=== PATIENT | male | born 1955 | race Caucasian/White ===

== ENCOUNTER 2017-07-19 11:46 | Inpatient (IN) | payer MEDICAID, OTHER ==
--- NOTE | 2017-07-19 12:41 | C.PDOC ---
History Of Present Illness 62 year old male presents to the ED for evaluation of cough and hemoptysis which began 2 days ago. Patient notes he had multiple episodes, with last episode occurring prior to arrival. Patient notes bright red blood with clots. He reports shortness of breath. Patient denies history of asthma or smoking. Patient has been compliant with his blood pressure medication. Patient denies unintentional weight loss, TB exposure, or recent foreign travel. COUGH, HEMOPTYSIS X 2 DAYS. 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 +BRB W CLOTS. +SOB. DENIES HO ASTHMA, SMOKING. COMPLIANT W BP MEDS. DENIES UNINT WT LOSS, TB EXPOSURE, FOREIGN TRAVEL. EXAM MOD DIST NONTOXIC HEENT NEG LUNGS +ACTIVE WET COUGH, PIPE CHANGER. +DIFFUSE RHONCHI R SIDE W TACHYPNEA RETRACTION CV RRR SINUS TACH REMAINDER NEG Time Seen by Provider: 07/19/17 12:24 Chief Complaint (Nursing): Cough, Cold, Congestion History Per: Patient History/Exam Limitations: no limitations Onset/Duration Of Symptoms: Days (2) Current Symptoms Are (Timing): Still Present Sick Contacts (Context): None Associated Symptoms: Cough Ear Symptoms: Bilateral: None Additional History Per: Patient Past Medical History Reviewed: Historical Data, Nursing Documentation, Vital Signs Vital Signs: Last Vital Signs Temp 99.8 F H 07/19/17 17:26 Pulse 95 H 07/19/17 17:26 Resp 20 07/19/17 17:26 BP 146/81 07/19/17 17:26 Pulse Ox 99 07/19/17 17:26 - Medical History PMH: No Chronic Diseases Surgical History: No Surg Hx Family History: States: Unknown Family Hx - Social History Hx Tobacco Use: No Review Of Systems Constitutional: Negative for: Weight loss Respiratory: Positive for: Cough, Hemoptysis Physical Exam - Physical Exam Appears: Non-toxic, Other (in moderate distress ) Skin: Normal Color, Warm, Dry Head: Atraumatic, Normacephalic Eye(s): bilateral: Normal Inspection Ear(s): Bilateral: Normal Nose: Normal, No Discharge Oral Mucosa: Moist Throat: Normal, No Erythema, No Exudate Neck: Supple Chest: Symmetrical, No Deformity, No Tenderness, Other (sinus tachycardia ) Cardiovascular: Rhythm Regular, No Murmur Respiratory: No Rales, Rhonchi (diffuse, right side ), No Wheezing, Other ( active wet cough, nonproductive, tachypnea, retraction ) Extremity: Normal ROM, Capillary Refill (less than 2 seconds ) Neurological/Psych: Oriented x3, Normal Speech, Normal Cognition Gait: Steady ED Course And Treatment - Laboratory Results Result Diagrams: 07/19/17 12:59 07/19/17 12:59 ECG: Interpreted By Me ECG Rhythm: Sinus Rhythm Rate From EC O2 Sat by Pulse Oximetry: 94 Pulse Ox Interpretation: Normal - Radiology CXR: Interpreted by Me, Viewed By Me, Read By Radiologist CXR Interpretation: Yes: Other (patchy infiltrates bilaterally ) Progress Note: Labs, CT Angio Chest, CXR, EKG ordered and reviewed. Albuterol INH, Maxipime IVP, Tylenol PO and IV fluids administered. Progress - Re-Evaluation Re-evaluation Note: 07/19/17 17:49 NARD. 98% ON RA. APPEARS COMFORTABLE. D/W DR Slick PALOMARES WILL ADMIT. PENDING CTA REPORT - Data Reviewed Data Reviewed: Lab, Diagnostic imaging, EKG, Old records - Critical Care Citical Care: Excluding Proc Time Critical Care Time: 90 minutes Disposition Counseled Patient/Family Regarding: Studies Performed, Diagnosis - Disposition Disposition: HOSPITALIZED Disposition Time: 17:52 Condition: STABLE Forms: [employer] (Polish) - Clinical Impression Clinical Impression: Pneumonia, Hemoptysis - Scribe Statement The provider has reviewed the documentation as recorded by the Scribe (Lisa Saleh) Provider Attestation: All medical record entries made by the Scribe were at my direction and personally dictated by me. I have reviewed the chart and agree that the record accurately reflects my personal performance of the history, physical exam, medical decision making, and the department course for this patient. I have also personally directed, reviewed, and agree with the discharge instructions and disposition. Decision To Admit - Pt Status Changed To: Hospital Disposition Of: Inpatient - Admit Certification Admit to Inpatient:: After my assessment, the patient will require hospitalization for at least two midnights. This is because of the severity of symptoms shown, intensity of services needed, and/or the medical risk in this patient being treated as an outpatient. - InPatient: Physician Admission Certification: I certify that this patient requires 2 or more midnights of care for the following reason:: SEE NOTE - . Bed Request Type: Regular Admitting Physician: Mal Palomares Patient Diagnosis: Pneumonia, Hemoptysis
[2017-07-19] MEDS ORDERED: Albuterol 0.083% Inhal Sol (2.5 mg/3 mL) UD INH STA (12:48)
[2017-07-19] MEDS ORDERED: Cefepime IV 2 gm in Dextrose 2 GM/100 ML BAG IVPB STA (12:50)
[2017-07-19 12:56] LABS: VENOUS BLOOD GAS BASE EXCESS 2.4 mmol/L (0.0-2.0); VENOUS BLOOD GAS PCO2 32 mmHg (40-60)
[2017-07-19] MEDS ORDERED: Albuterol 0.083% Inhal Sol (2.5 mg/3 mL) UD ONE (12:58)
[2017-07-19] MEDS ORDERED: Sodium Chloride 0.9% 2,000 ML ONE (12:58)
[2017-07-19 13:06] LABS: BASO # 0.1 K/uL (0.0-0.2); BASO % 0.7 % (0.0-2.0); HEMATOCRIT 37.7 % (35.0-51.0); LYMPH # 1.4 K/uL (1.0-4.3); LYMPH % 11.3 % (20.0-40.0); MEAN CELL VOLUME 85.6 fL (80.0-94.0); MEAN CORPUSCULAR HEMOGLOBIN 29.5 pg (27.0-31.0); MEAN CORPUSCULAR HGB CONC 34.4 g/dL (33.0-37.0); MEAN PLATELET VOLUME 7.6 fL (7.2-11.7); MONO # 1.2 K/uL (0.0-0.8); RED CELL DISTRIBUTION WIDTH 13.1 % (11.5-14.5); WHITE BLOOD COUNT 12.3 K/uL (4.8-10.8)
[2017-07-19 13:17] LABS: INR 1.2
[2017-07-19 13:30] LABS: CHLORIDE 96 mmol/L (98-107); SODIUM 131 mmol/L (132-148)
[2017-07-19 13:31] LABS: POTASSIUM 3.4 mmol/L (3.6-5.2)
[2017-07-19 13:32] LABS: GFR AFRICAN-AMERICAN > 60
[2017-07-19 13:33] LABS: ALB/GLOB RATIO 1.1 (1.0-2.1); ALKALINE PHOSPHATASE 82 U/L (38-126); ALT/SGPT 34 U/L (21-72); AST/SGOT 33 U/L (17-59); BILIRUBIN,TOTAL 0.8 mg/dL (0.2-1.3); BLOOD UREA NITROGEN 17 mg/dL (9-20); CARBON DIOXIDE 23 mmol/L (22-30); GLUCOSE,RANDOM 111 mg/dL (75-110); PHOSPHOROUS 1.4 mg/dL (2.5-4.5); TOTAL PROTEIN 8.2 g/dL (6.3-8.3)
[2017-07-19 13:34] LABS: CALCIUM 9.2 mg/dl (8.6-10.4); MAGNESIUM 1.8 mg/dL (1.6-2.3)
[2017-07-19 15:29] LABS: RBC URINE 1 /hpf (0-3); URINE BILIRUBIN NEGATIVE (NEGATIVE); URINE BLOOD 1+ (NEGATIVE); URINE CALCIUM OXALATE CRYSTALS OCC /hpf (<OCC); URINE COLOR Straw (YELLOW); URINE GLUCOSE (UA) NORMAL (Normal); URINE HYALINE CAST 0-2 /lpf (0-2); URINE KETONE NEGATIVE (NEGATIVE); URINE LEUKOCYTE ESTERASE NEG Leu/uL (Negative); URINE PROTEIN NEGATIVE (NEGATIVE); URINE UROBILINOGEN NORMAL mg/dL (0.2-1.0)
--- NOTE | 2017-07-19 16:07 | RAD ---
HISTORY: Sepsis Patient COMPARISON: No prior. FINDINGS: LUNGS: Limited patchy density is difficult to exclude from bony overlap at the left apex. Clinically correlate further. Follow-up PA and lateral radiographs is recommended possible it otherwise CT may be helpful. PLEURA: No significant pleural effusion identified, no pneumothorax apparent. CARDIOVASCULAR: Normal. OSSEOUS STRUCTURES: Old healed right 8th rib fracture seen posteriorly. VISUALIZED UPPER ABDOMEN: Normal. OTHER FINDINGS: None. IMPRESSION: Rostral patchy infiltrate left apex versus bony overlap or even bony abnormality at the left for 2nd and 3rd ribs. Consider follow-up two-view chest radiography or CT. No potential acute right pulmonary findings.
[2017-07-19] MEDS ORDERED: Iohexol 350mg/ml 100 ML ONE (16:54)
[2017-07-19 17:36] LABS: VENOUS BLOOD GAS BASE EXCESS -1.3 mmol/L (0.0-2.0); VENOUS BLOOD GAS PCO2 43 mmHg (40-60); VENOUS BLOOD PH 7.36 (7.32-7.43)
[2017-07-19] MEDS ORDERED: Tuberculin 5 Units/0.1 ml Inj ID STA (18:16)
--- NOTE | 2017-07-19 18:25 | CT ---
PROCEDURE: CT Chest with contrast (Pulmonary Angiogram) HISTORY: HEMOPTYSIS r/o PE COMPARISON: None available. TECHNIQUE: Axial computed tomography images were obtained of the chest in the pulmonary arterial phase of enhancement. Coronal and sagittal reformatted images were created and reviewed. Intravenous contrast dose: Visipaque 320 100 mL. Mean Hounsfield unit values in the main pulmonary artery: 245.83 Radiation dose: Total exam DLP = 363.92 mGy-cm. This CT exam was performed using one or more of the following dose reduction techniques: Automated exposure control, adjustment of the mA and/or kV according to patient size, and/or use of iterative reconstruction technique. FINDINGS: PULMONARY ARTERIES: Unremarkable. No pulmonary embolism. AORTA: No acute findings. No thoracic aortic aneurysm. LUNGS: Large, dominant thick-walled cavitary mass apex of the right lung with an air-fluid level. The major component measures 3.4 x 4.2 cm in their satellite lesions contiguous with this. Additional benign cavitary masses identified in the left upper lobe, superior segment of the left lower lobe, and in the posterior segment of the right upper lobe. The patient is neither cachectic hand is not known to be immunosuppressive medication, nor immunocompromised. Although tumor, septic emboli are less likely considerations in all likelihood this is inflammatory/infectious perhaps granulomatous disease. Reactivation tuberculosis can assume this appearance as CT and variants of sarcoid. PLEURAL SPACES: Unremarkable. No effusion or pneuomothorax. HEART: Unremarkable. No cardiomegaly. No significant pericardial effusion. LYMPH NODES: No lymphadenopathy. BONES, CHEST WALL: Unremarkable. No fracture or destructive lesion OTHER FINDINGS: Cholelithiasis without CT evidence of acute cholecystitis. IMPRESSION: Primarily upper lobe masses and infiltrates including a dominant cavitary mass in the right upper lobe. Strong consideration to granulomatous disease/ reactivation tuberculosis. Less likely considerations have been provided above. Cholelithiasis without CT evidence of acute cholecystitis. Communication of results: I discussed findings with the attending physician in the emergency department at the time of this interpretation.
[2017-07-19] MEDS ORDERED: Potassium Chloride 20 mEq ER Tab PO STA (18:59)
[2017-07-19] MEDS ORDERED: Piperacillin/Tazobact 3.375 GM in Sodium Chloride 100 ML IVPB SCH (20:30)
[2017-07-19] MEDS ORDERED: Albuterol-Ipratrop 3 mg / 0.5 (3 ml) UD ONE (21:35)
[2017-07-19] MEDS ORDERED: Piperacillin/Tazobact 3.375 gm 100 ML IVPB ONE (21:35)
[2017-07-19] MEDS: Albuterol 0.083% Inhal Sol (2.5 mg/3 mL) UD INH PRN (21:45)
[2017-07-19] MEDS: Piperacill/Tazo 3.375gm in Dex 3.375 GM/50 ML BAG IVPB SCH (21:48)
[2017-07-20] MEDS: Piperacill/Tazo 3.375gm in Dex 3.375 GM/50 ML BAG IVPB SCH ×3 (05:28→21:16)
[2017-07-20] MEDS: Albuterol 0.083% Inhal Sol (2.5 mg/3 mL) UD INH PRN ×2 (07:49→13:24)
--- NOTE | 2017-07-20 09:21 | CP.PCM.HP ---
History of Present Illness - History of Present Illness History of Present Illness: CC: Coughing blood 62 y/o males with HTN. Patoient seen for HTN and develop cough. Pt did not do OP- CXR c/o did not believe he has something wrong. Pt has constant cough w/ bloody mucus x 2 days. He went to ER and admitted Present on Admission - Present on Admission Any Indicators Present on Admission: Yes History of DVT/PE: No History of Uncontrolled Diabetes: No Urinary Catheter: No Decubitus Ulcer Present: No Review of Systems - Review of Systems Systems not reviewed;Unavailable: Acuity of Condition - Constitutional Constitutional: absent: Anorexia, Excessive Sweating, Headache, Night Sweats, Sleep Apnea, Weight Loss, Weakness - EENT Eyes: absent: Diplopia, Loss of Peripheral Vision, Pain, Spots in Vision, Loss of Vision Ears: absent: Decreased Hearing, Disequilibrium, Dizziness Nose/Mouth/Throat: absent: Nasal Congestion, Nasal Trauma, Bleeding Gums, Dysphagia, Halitosis - Cardiovascular Cardiovascular: absent: Chest Pain, Diaphoresis, Dyspnea, Dyspnea on Exertion, Edema, Leg Edema, Orthopnea - Respiratory Respiratory: Hemoptysis, Wheezing, Chest Congestion, Excessive Mucous Production. absent: Dyspnea on Exertion, Snoring, Pain with Coughing - Gastrointestinal Gastrointestinal: absent: Abdominal Pain, Dyspepsia, Dysphagia, Heartburn, Nausea - Genitourinary Genitourinary: absent: Difficulty Urinating, Nocturia, Urinary Hesitance, Urinary Urgency - Musculoskeletal Musculoskeletal: absent: Abnormal Gait, Back Pain, Loss of Height, Myalgias, Neck Pain - Integumentary Integumentary: absent: Alopecia, Hirsutism, Pruritus, Rash - Neurological Neurological: absent: Abnormal Gait, Abnormal Movements, Behavioral Changes, Burning Sensations, Confusion, Focal Weakness Past Patient History - Past Social History Smoking Status: Former Smoker - CARDIAC Hx Cardiac Disorders: Yes Hx Hypertension: Yes - PULMONARY Hx Respiratory Disorders: Yes Hx Asthma: Yes - MUSCULOSKELETAL/RHEUMATOLOGICAL Hx Falls: No - PSYCHIATRIC Hx Substance Use: No - SURGICAL HISTORY Hx Surgeries: No Meds Allergies/Adverse Reactions: Allergies Allergy/AdvReac Type Severity Reaction Status Date / Time No Known Allergies Allergy Verified 07/19/17 12:03 Physical Exam - Constitutional Appears: No Acute Distress - Eye Exam Eye Exam: Normal appearance - ENT Exam ENT Exam: Mucous Membranes Moist - Neck Exam Neck exam: Positive for: Full Rom. Negative for: Lymphadenopathy, Thyromegaly - Respiratory Exam Respiratory Exam: Chest Wall Tenderness. absent: Rhonchi, Wheezes - Cardiovascular Exam Cardiovascular Exam: REGULAR RHYTHM, +S1, +S2. absent: Gallop, JVD, Systolic Murmur - GI/Abdominal Exam GI & Abdominal Exam: Soft. absent: Guarding, Tenderness - Extremities Exam Extremities exam: Positive for: full ROM, normal capillary refill. Negative for : calf tenderness, joint swelling, pedal edema, pedal pulses present Results - Vital Signs Recent Vital Signs: Last Vital Signs Temp 99.3 F 07/20/17 00:33 Pulse 86 07/20/17 08:06 Resp 20 07/20/17 00:33 BP 121/71 07/20/17 00:33 Pulse Ox 95 07/20/17 00:33 - Labs Result Diagrams: 07/19/17 12:59 07/19/17 12:59 Labs: Laboratory Results - last 24 hr 07/19/17 07/19/17 07/19/17 12:46 12:53 12:59 WBC 12.3 H RBC 4.40 Hgb 13.0 Hct 37.7 MCV 85.6 MCH 29.5 MCHC 34.4 RDW 13.1 Plt Count 323 MPV 7.6 Neut % (Auto) 78.0 H Lymph % (Auto) 11.3 L [place] % (Auto) 10.0 Eos % (Auto) 0.0 Baso % (Auto) 0.7 Neut # 9.6 H Lymph # 1.4 [place] # 1.2 H Eos # 0.0 Baso # 0.1 PT INR APTT pO2 57 H VBG pH 7.50 H VBG pCO2 32 L VBG HCO3 26.6 VBG Total CO2 26.0 VBG O2 Sat (Calc) 94.3 H VBG Base Excess 2.4 H VBG Potassium 3.4 L Sodium 133.0 Chloride 103.0 Glucose 124 H Lactate 0.9 Potassium Carbon Dioxide Anion Gap BUN Creatinine Est GFR ( Amer) Est GFR (Non-Af Amer) Random Glucose Calcium Phosphorus Magnesium Total Bilirubin AST ALT Alkaline Phosphatase Troponin I NT-Pro-B Natriuret Pep Total Protein Albumin Globulin Albumin/Globulin Ratio Venous Blood Potassium 3.4 L Urine Color Urine Clarity Urine pH Ur Specific [place] Urine Protein Urine Glucose (UA) Urine Ketones Urine Blood Urine Nitrate Urine Bilirubin Urine Urobilinogen Ur Leukocyte Esterase Urine RBC (Auto) Calcium Oxalate Crystal Hyaline Casts Influenza Typ A,B (EIA) Negative for flu a/b 07/19/17 07/19/17 07/19/17 12:59 12:59 14:42 WBC RBC Hgb Hct MCV MCH MCHC RDW Plt Count MPV Neut % (Auto) Lymph % (Auto) [place] % (Auto) Eos % (Auto) Baso % (Auto) Neut # Lymph # [place] # Eos # Baso # PT 13.8 H INR 1.2 APTT 38 H pO2 VBG pH VBG pCO2 VBG HCO3 VBG Total CO2 VBG O2 Sat (Calc) VBG Base Excess VBG Potassium Sodium 131 L Chloride 96 L Glucose Lactate Potassium 3.4 L Carbon Dioxide 23 Anion Gap 16 BUN 17 Creatinine 1.1 Est GFR ( Amer) > 60 Est GFR (Non-Af Amer) > 60 Random Glucose 111 H Calcium 9.2 Phosphorus 1.4 L Magnesium 1.8 Total Bilirubin 0.8 AST 33 ALT 34 Alkaline Phosphatase 82 Troponin I < 0.0120 NT-Pro-B Natriuret Pep 249 Total Protein 8.2 Albumin 4.3 Globulin 3.8 Albumin/Globulin Ratio 1.1 Venous Blood Potassium Urine Color Straw Urine Clarity Clear Urine pH 5.0 Ur Specific [place] 1.005 Urine Protein Negative Urine Glucose (UA) Normal Urine Ketones Negative Urine Blood 1+ H Urine Nitrate Negative Urine Bilirubin Negative Urine Urobilinogen Normal Ur Leukocyte Esterase Neg Urine RBC (Auto) 1 Calcium Oxalate Crystal Occ H Hyaline Casts 0-2 Influenza Typ A,B (EIA) 07/19/17 17:20 WBC RBC Hgb Hct MCV MCH MCHC RDW Plt Count MPV Neut % (Auto) Lymph % (Auto) [place] % (Auto) Eos % (Auto) Baso % (Auto) Neut # Lymph # [place] # Eos # Baso # PT INR APTT pO2 31 VBG pH 7.36 VBG pCO2 43 VBG HCO3 22.8 VBG Total CO2 25.6 VBG O2 Sat (Calc) 67.3 H VBG Base Excess -1.3 L VBG Potassium 3.3 L Sodium 138.0 Chloride 106.0 Glucose 112 H Lactate 1.5 Potassium Carbon Dioxide Anion Gap BUN Creatinine Est GFR ( Amer) Est GFR (Non-Af Amer) Random Glucose Calcium Phosphorus Magnesium Total Bilirubin AST ALT Alkaline Phosphatase Troponin I NT-Pro-B Natriuret Pep Total Protein Albumin Globulin Albumin/Globulin Ratio Venous Blood Potassium 3.3 L Urine Color Urine Clarity Urine pH Ur Specific [place] Urine Protein Urine Glucose (UA) Urine Ketones Urine Blood Urine Nitrate Urine Bilirubin Urine Urobilinogen Ur Leukocyte Esterase Urine RBC (Auto) Calcium Oxalate Crystal Hyaline Casts Influenza Typ A,B (EIA) - EKG Data EKG Interpreted by: Myself EKG shows normal: Sinus rhythm Rate: Tachycardia (Complete RBBB) Assessment & Plan - Assessment and Plan (Free Text) Assessment: Pulm cavitary lesion/ Hemoptysis - like PTB r/o cancer HTN Cont Zozyn/ albuterol Pulmonary consult For AFB x 3 & on Isolation
--- NOTE | 2017-07-20 09:24 | CP.PCM.CON ---
<Paris Mendoza - Last Filed: 07/20/17 14:37> History of Present Illness - History of Present Illness History of Present Illness: Pulmonology Consult Note for Dr. Rebolledo's Service Reason for consult: Abnormal CXR, hemoptysis HPI: 62M with PMHx of HTN presented to the ED for hemoptysis, fever, chills that started 07/18/17. He reports having a productive cough x 2 weeks but denied any fever, chills. Denied any recent travel or sick contacts. Patient admitted to fever, chills, fatigue, headache, wheezing, shortness of breath, 5lb weight loss over the past month - unintentional. He has never had TB, pneumonia in the past, follows closely with PMD. Denied chest pain, abdominal pain, n/v/d/c, or urinary symptoms. PMHx: HTN PSHx: Denied Meds: Denied All: NKDA SHx: Denied tobacco, ETOH, and illicit drug use FHx: Unremarkable Past Patient History - Past Social History Smoking Status: Never Smoked - CARDIAC Hx Cardiac Disorders: Yes Hx Hypertension: Yes - PULMONARY Hx Respiratory Disorders: Yes Hx Asthma: Yes - MUSCULOSKELETAL/RHEUMATOLOGICAL Hx Falls: No - PSYCHIATRIC Hx Substance Use: No - SURGICAL HISTORY Hx Surgeries: No Meds Allergies/Adverse Reactions: Allergies Allergy/AdvReac Type Severity Reaction Status Date / Time No Known Allergies Allergy Verified 07/19/17 12:03 - Medications Medications: Current Medications Acetaminophen (Tylenol 325mg Tab) 975 mg PO ONCE PRN PRN Reason: Fever >100.4 F Last Admin: 07/19/17 19:34 Dose: 975 mg Acetaminophen (Tylenol 325mg Tab) 650 mg PO Q4 LEIGHA Last Admin: 07/20/17 09:07 Dose: 650 mg Albuterol Sulfate (Albuterol 0.083% Inhal Kirstie (2.5 Mg/3 Ml) Ud) 2.5 mg INH RQ6 PRN PRN Reason: Shortness of Breath Last Admin: 07/20/17 07:49 Dose: 2.5 mg Piperacillin Sod/Tazobactam Sod (Zosyn 3.375 Gm Iv Premix) 3.375 gm in 50 mls @ 100 mls/hr IVPB Q8H LEIGHA Last Admin: 07/20/17 05:28 Dose: 100 mls/hr Losartan Potassium (Cozaar) 50 mg PO DAILY LEIGHA Last Admin: 07/20/17 09:07 Dose: 50 mg Physical Exam - Constitutional Appears: No Acute Distress - Head Exam Head Exam: NORMAL INSPECTION, NORMOCEPHALIC - Eye Exam Eye Exam: EOMI, Normal appearance, PERRL Pupil Exam: NORMAL ACCOMODATION - ENT Exam ENT Exam: Mucous Membranes Dry - Neck Exam Neck exam: Positive for: Normal Inspection. Negative for: Lymphadenopathy, Thyromegaly - Respiratory Exam Respiratory Exam: Prolonged Expiratory Phase, Wheezes - Cardiovascular Exam Cardiovascular Exam: Tachycardia - GI/Abdominal Exam GI & Abdominal Exam: Normal Bowel Sounds, Soft. absent: Distended, Tenderness - Extremities Exam Extremities exam: Positive for: normal inspection, pedal pulses present. Negative for: pedal edema, tenderness - Back Exam Back exam: NORMAL INSPECTION - Neurological Exam Neurological exam: Alert, CN II-XII Intact, Oriented x3 - Psychiatric Exam Psychiatric exam: Normal Affect, Normal Mood - Skin Skin Exam: Dry, Intact, Normal Color, Warm Results - Vital Signs Recent Vital Signs: Last Vital Signs Temp 99.3 F 07/20/17 00:33 Pulse 86 07/20/17 08:06 Resp 20 07/20/17 00:33 BP 121/71 07/20/17 00:33 Pulse Ox 95 07/20/17 00:33 - Labs Result Diagrams: 07/19/17 12:59 07/19/17 12:59 Labs: Laboratory Results - last 24 hr 07/19/17 07/19/17 07/19/17 12:46 12:53 12:59 WBC 12.3 H RBC 4.40 Hgb 13.0 Hct 37.7 MCV 85.6 MCH 29.5 MCHC 34.4 RDW 13.1 Plt Count 323 MPV 7.6 Neut % (Auto) 78.0 H Lymph % (Auto) 11.3 L [place] % (Auto) 10.0 Eos % (Auto) 0.0 Baso % (Auto) 0.7 Neut # 9.6 H Lymph # 1.4 [place] # 1.2 H Eos # 0.0 Baso # 0.1 PT INR APTT pO2 57 H VBG pH 7.50 H VBG pCO2 32 L VBG HCO3 26.6 VBG Total CO2 26.0 VBG O2 Sat (Calc) 94.3 H VBG Base Excess 2.4 H VBG Potassium 3.4 L Sodium 133.0 Chloride 103.0 Glucose 124 H Lactate 0.9 Potassium Carbon Dioxide Anion Gap BUN Creatinine Est GFR ( Amer) Est GFR (Non-Af Amer) Random Glucose Calcium Phosphorus Magnesium Total Bilirubin AST ALT Alkaline Phosphatase Troponin I NT-Pro-B Natriuret Pep Total Protein Albumin Globulin Albumin/Globulin Ratio Venous Blood Potassium 3.4 L Urine Color Urine Clarity Urine pH Ur Specific [place] Urine Protein Urine Glucose (UA) Urine Ketones Urine Blood Urine Nitrate Urine Bilirubin Urine Urobilinogen Ur Leukocyte Esterase Urine RBC (Auto) Calcium Oxalate Crystal Hyaline Casts Influenza Typ A,B (EIA) Negative for flu a/b 07/19/17 07/19/17 07/19/17 12:59 12:59 14:42 WBC RBC Hgb Hct MCV MCH MCHC RDW Plt Count MPV Neut % (Auto) Lymph % (Auto) [place] % (Auto) Eos % (Auto) Baso % (Auto) Neut # Lymph # [place] # Eos # Baso # PT 13.8 H INR 1.2 APTT 38 H pO2 VBG pH VBG pCO2 VBG HCO3 VBG Total CO2 VBG O2 Sat (Calc) VBG Base Excess VBG Potassium Sodium 131 L Chloride 96 L Glucose Lactate Potassium 3.4 L Carbon Dioxide 23 Anion Gap 16 BUN 17 Creatinine 1.1 Est GFR ( Amer) > 60 Est GFR (Non-Af Amer) > 60 Random Glucose 111 H Calcium 9.2 Phosphorus 1.4 L Magnesium 1.8 Total Bilirubin 0.8 AST 33 ALT 34 Alkaline Phosphatase 82 Troponin I < 0.0120 NT-Pro-B Natriuret Pep 249 Total Protein 8.2 Albumin 4.3 Globulin 3.8 Albumin/Globulin Ratio 1.1 Venous Blood Potassium Urine Color Straw Urine Clarity Clear Urine pH 5.0 Ur Specific [place] 1.005 Urine Protein Negative Urine Glucose (UA) Normal Urine Ketones Negative Urine Blood 1+ H Urine Nitrate Negative Urine Bilirubin Negative Urine Urobilinogen Normal Ur Leukocyte Esterase Neg Urine RBC (Auto) 1 Calcium Oxalate Crystal Occ H Hyaline Casts 0-2 Influenza Typ A,B (EIA) 07/19/17 17:20 WBC RBC Hgb Hct MCV MCH MCHC RDW Plt Count MPV Neut % (Auto) Lymph % (Auto) [place] % (Auto) Eos % (Auto) Baso % (Auto) Neut # Lymph # [place] # Eos # Baso # PT INR APTT pO2 31 VBG pH 7.36 VBG pCO2 43 VBG HCO3 22.8 VBG Total CO2 25.6 VBG O2 Sat (Calc) 67.3 H VBG Base Excess -1.3 L VBG Potassium 3.3 L Sodium 138.0 Chloride 106.0 Glucose 112 H Lactate 1.5 Potassium Carbon Dioxide Anion Gap BUN Creatinine Est GFR ( Amer) Est GFR (Non-Af Amer) Random Glucose Calcium Phosphorus Magnesium Total Bilirubin AST ALT Alkaline Phosphatase Troponin I NT-Pro-B Natriuret Pep Total Protein Albumin Globulin Albumin/Globulin Ratio Venous Blood Potassium 3.3 L Urine Color Urine Clarity Urine pH Ur Specific [place] Urine Protein Urine Glucose (UA) Urine Ketones Urine Blood Urine Nitrate Urine Bilirubin Urine Urobilinogen Ur Leukocyte Esterase Urine RBC (Auto) Calcium Oxalate Crystal Hyaline Casts Influenza Typ A,B (EIA) Assessment & Plan - Assessment and Plan (Free Text) Plan: Suspected Tuberculosis Continue current management - will continue to monitor Imaging: CXR 07/19: Rostral patchy infiltrate left apex versus bony overlap or even bony abnormality at the left for 2nd and 3rd ribs. Consider follow-up two-view chest radiography or CT. No potential acute right pulmonary findings. CT Chest 07/19: Primarily upper lobe masses and infiltrates including a dominant cavitary mass in the right upper lobe. Strong consideration to granulomatous disease/ reactivation tuberculosis. Less likely considerations have been provided above.Cholelithiasis without CT evidence of acute cholecystitis. Medications: Zosyn by primary started 07/20 Isoniazid, Rifampin, Pyridoxine, Pyrazinamide - started 07/20 by primary and ID - Dr. Ruff Results: Leukocytosis, with left shift HIV NEGATIVE F/U quantiferon, rapid flu, Mycoplasma Igm, strep pneumo, legionella, procalcitonin, HIV, AFBs Hx HTN DW Reji Garcia DO, PGY-1 <Devyn Rebolledo - Last Filed: 07/20/17 18:41> Meds - Medications Medications: Current Medications Acetaminophen (Tylenol 325mg Tab) 975 mg PO ONCE PRN PRN Reason: Fever >100.4 F Last Admin: 07/19/17 19:34 Dose: 975 mg Acetaminophen (Tylenol 325mg Tab) 650 mg PO Q4 PRN PRN Reason: Pain, Mild (1-3) Albuterol Sulfate (Albuterol 0.083% Inhal Kirstie (2.5 Mg/3 Ml) Ud) 2.5 mg INH RQ6 PRN PRN Reason: Shortness of Breath Last Admin: 07/20/17 13:24 Dose: 2.5 mg Ethambutol HCl (Myambutol) 800 mg PO DAILY [facility] Last Admin: 07/20/17 10:59 Dose: 800 mg Piperacillin Sod/Tazobactam Sod (Zosyn 3.375 Gm Iv Premix) 3.375 gm in 50 mls @ 100 mls/hr IVPB Q8H [facility] Last Admin: 07/20/17 12:48 Dose: 100 mls/hr Isoniazid (Niazid) 300 mg PO DAILY [facility] Last Admin: 07/20/17 10:59 Dose: 300 mg Losartan Potassium (Cozaar) 50 mg PO DAILY [facility] Last Admin: 07/20/17 09:07 Dose: 50 mg Pyrazinamide (Pyrazinamide) 1,000 mg PO DAILY [facility] Pyridoxine HCl (Vitamin B6 50 Mg Tab) 50 mg PO DAILY [facility] Last Admin: 07/20/17 10:59 Dose: 50 mg Rifampin (Rifampin Cap) 600 mg PO DAILY [facility] Results - Vital Signs Recent Vital Signs: Last Vital Signs Temp 99.3 F 07/20/17 00:33 Pulse 86 07/20/17 08:06 Resp 20 07/20/17 00:33 BP 121/71 07/20/17 00:33 Pulse Ox 95 07/20/17 00:33 - Labs Result Diagrams: 07/19/17 12:59 07/19/17 12:59 Labs: Laboratory Results - last 24 hr 07/20/17 07/20/17 11:46 11:49 HIV 1&2 Antibody Screen Negative Ur L.pneumophila Ag Negative Attending/Attestation - Attestation I have personally seen and examined this patient.: Yes I have fully participated in the care of the patient.: Yes I have reviewed all pertinent clinical information: Yes
[2017-07-20] MEDS ORDERED: Potassium Chloride 20 mEq ER Tab PO ONE (10:00)
[2017-07-20] MEDS ORDERED: Enoxaparin 40 mg Syringe SC SCH (10:00)
--- NOTE | 2017-07-20 10:40 | CP.PCM.CON ---
History of Present Illness - History of Present Illness History of Present Illness: admitted for hemoptysis r/o TB vs malignancy Review of Systems - Review of Systems All systems: reviewed and no additional remarkable complaints except - Constitutional Constitutional: As Per HPI - EENT Eyes: absent: As Per HPI, Blind Spots, Blurred Vision, Change in Vision, Decreased Night Vision, Diplopia, Discharge, Dry Eye, Exophthalmos, Floaters, Irritation, Itchy Eyes, Loss of Peripheral Vision, Pain, Photophobia, Requires Corrective Lenses, Sees Flashes, Spots in Vision, Tunnel Vision, Other Visual Disturbances, Loss of Vision, Other Ears: absent: As Per HPI, Decreased Hearing, Ear Discharge, Ear Pain, Tinnitus, Abnormal Hearing, Disequilibrium, Dizziness, Other Nose/Mouth/Throat: absent: As Per HPI, Epistaxis, Nasal Congestion, Nasal Discharge, Nasal Obstruction, Nasal Trauma, Nose Pain, Post Nasal Drip, Sinus Pain, Sinus Pressure, Bleeding Gums, Change in Voice, Dental Pain, Dry Mouth, Dysphagia, Halitosis, Hoarsness, Lip Swelling, Mouth Lesions, Mouth Pain, Odynophagia, Sore Throat, Throat Swelling, Tongue Swelling, Facial Pain, Neck Pain, Neck Mass, Other - Cardiovascular Cardiovascular: absent: As Per HPI, Acrocyanosis, Chest Pain, Chest Pain at Rest , Chest Pain with Activity, Claudication, Diaphoresis, Dyspnea, Dyspnea on Exertion, Edema, Irregular Heart Rhythm, Pain Radiating to Arm/Neck/Jaw, Leg Edema, Leg Ulcers, Lightheadedness, Orthopnea, Palpitations, Paroxysmal Nocturnal Dyspnea, Pedal Edema, Radiating Pain, Rapid Heart Rate, Slow Heart Rate, Syncope, Other - Respiratory Respiratory: As Per HPI, Hemoptysis - Gastrointestinal Gastrointestinal: absent: As Per HPI, Abdominal Pain, Belching, Bloating, Change in Bowel Habits, Change in Stool Character, Coffee Ground Emesis, Constipation, Cramping, Diarrhea, Dyspepsia, Dysphagia, Early Satiety, Excessive Flatus, Fecal Incontinence, Heartburn, Hematemesis, Hematochezia, Loose Stools, Melena, Nausea, Odynophagia, Temesmus, Vomiting, Other - Genitourinary Genitourinary: absent: As Per HPI, Change in Urinary Stream, Difficulty Urinating, Dysuria, Flank Pain, Hematuria, Pyuria, Nocturia, Urinary Incontinence, Urinary Frequency, Urinary Hesitance, Urinary Urgency, Voiding Freq/Small Amts, Freq UTI, Hx Renal/Bladder Calculi, Hx /Renal Surgery, Bladder Distension, Other - Musculoskeletal Musculoskeletal: absent: As Per HPI, Abnormal Gait, Arthralgias, Atrophy, Back Pain, Deformity, Joint Swelling, Limited Range of Motion, Loss of Height, Muscle Cramps, Muscle Weakness, Myalgias, Neck Pain, Numbness, Radiating Pain into Limb, Stiffness, Tingling, Other Past Patient History - Past Social History Smoking Status: Never Smoked - CARDIAC Hx Cardiac Disorders: Yes Hx Hypertension: Yes - PULMONARY Hx Respiratory Disorders: Yes Hx Asthma: Yes - MUSCULOSKELETAL/RHEUMATOLOGICAL Hx Falls: No - PSYCHIATRIC Hx Substance Use: No - SURGICAL HISTORY Hx Surgeries: No Meds Allergies/Adverse Reactions: Allergies Allergy/AdvReac Type Severity Reaction Status Date / Time No Known Allergies Allergy Verified 07/19/17 12:03 - Medications Medications: Current Medications Acetaminophen (Tylenol 325mg Tab) 975 mg PO ONCE PRN PRN Reason: Fever >100.4 F Last Admin: 07/19/17 19:34 Dose: 975 mg Acetaminophen (Tylenol 325mg Tab) 650 mg PO Q4 [facility] Last Admin: 07/20/17 09:07 Dose: 650 mg Albuterol Sulfate (Albuterol 0.083% Inhal Kirstie (2.5 Mg/3 Ml) Ud) 2.5 mg INH RQ6 PRN PRN Reason: Shortness of Breath Last Admin: 07/20/17 07:49 Dose: 2.5 mg Piperacillin Sod/Tazobactam Sod (Zosyn 3.375 Gm Iv Premix) 3.375 gm in 50 mls @ 100 mls/hr IVPB Q8H [facility] Last Admin: 07/20/17 05:28 Dose: 100 mls/hr Isoniazid (Niazid) 300 mg PO DAILY [facility] Losartan Potassium (Cozaar) 50 mg PO DAILY [facility] Last Admin: 07/20/17 09:07 Dose: 50 mg Pyridoxine HCl (Vitamin B6 50 Mg Tab) 50 mg PO DAILY [facility] Rifampin (Rifampin) 450 mg PO DAILY [facility] Physical Exam - Constitutional Appears: Non-toxic, Chronically Ill - Head Exam Head Exam: NORMOCEPHALIC - Eye Exam Eye Exam: PERRL - ENT Exam ENT Exam: Mucous Membranes Dry - Neck Exam Neck exam: Negative for: Lymphadenopathy - Respiratory Exam Respiratory Exam: Decreased Breath Sounds - Cardiovascular Exam Cardiovascular Exam: REGULAR RHYTHM - GI/Abdominal Exam GI & Abdominal Exam: Diminished Bowel Sounds, Soft - Rectal Exam Rectal Exam: Deferred - Exam Exam: NORMAL INSPECTION - Extremities Exam Extremities exam: Negative for: pedal edema - Back Exam Back exam: absent: CVA tenderness (L), CVA tenderness (R) - Neurological Exam Neurological exam: Alert, CN II-XII Intact, Oriented x3, Reflexes Normal - Psychiatric Exam Psychiatric exam: Normal Mood Results - Vital Signs Recent Vital Signs: Last Vital Signs Temp 99.3 F 07/20/17 00:33 Pulse 86 07/20/17 08:06 Resp 20 07/20/17 00:33 BP 121/71 07/20/17 00:33 Pulse Ox 95 07/20/17 00:33 - Labs Result Diagrams: 07/21/17 08:35 07/21/17 07:13 Labs: Laboratory Results - last 24 hr 07/19/17 07/19/17 07/19/17 12:46 12:53 12:59 WBC 12.3 H RBC 4.40 Hgb 13.0 Hct 37.7 MCV 85.6 MCH 29.5 MCHC 34.4 RDW 13.1 Plt Count 323 MPV 7.6 Neut % (Auto) 78.0 H Lymph % (Auto) 11.3 L Frio % (Auto) 10.0 Eos % (Auto) 0.0 Baso % (Auto) 0.7 Neut # 9.6 H Lymph # 1.4 Frio # 1.2 H Eos # 0.0 Baso # 0.1 PT INR APTT pO2 57 H VBG pH 7.50 H VBG pCO2 32 L VBG HCO3 26.6 VBG Total CO2 26.0 VBG O2 Sat (Calc) 94.3 H VBG Base Excess 2.4 H VBG Potassium 3.4 L Sodium 133.0 Chloride 103.0 Glucose 124 H Lactate 0.9 Potassium Carbon Dioxide Anion Gap BUN Creatinine Est GFR ( Amer) Est GFR (Non-Af Amer) Random Glucose Calcium Phosphorus Magnesium Total Bilirubin AST ALT Alkaline Phosphatase Troponin I NT-Pro-B Natriuret Pep Total Protein Albumin Globulin Albumin/Globulin Ratio Venous Blood Potassium 3.4 L Urine Color Urine Clarity Urine pH Ur Specific Pearcy Urine Protein Urine Glucose (UA) Urine Ketones Urine Blood Urine Nitrate Urine Bilirubin Urine Urobilinogen Ur Leukocyte Esterase Urine RBC (Auto) Calcium Oxalate Crystal Hyaline Casts Influenza Typ A,B (EIA) Negative for flu a/b 07/19/17 07/19/17 07/19/17 12:59 12:59 14:42 WBC RBC Hgb Hct MCV MCH MCHC RDW Plt Count MPV Neut % (Auto) Lymph % (Auto) Frio % (Auto) Eos % (Auto) Baso % (Auto) Neut # Lymph # Frio # Eos # Baso # PT 13.8 H INR 1.2 APTT 38 H pO2 VBG pH VBG pCO2 VBG HCO3 VBG Total CO2 VBG O2 Sat (Calc) VBG Base Excess VBG Potassium Sodium 131 L Chloride 96 L Glucose Lactate Potassium 3.4 L Carbon Dioxide 23 Anion Gap 16 BUN 17 Creatinine 1.1 Est GFR ( Amer) > 60 Est GFR (Non-Af Amer) > 60 Random Glucose 111 H Calcium 9.2 Phosphorus 1.4 L Magnesium 1.8 Total Bilirubin 0.8 AST 33 ALT 34 Alkaline Phosphatase 82 Troponin I < 0.0120 NT-Pro-B Natriuret Pep 249 Total Protein 8.2 Albumin 4.3 Globulin 3.8 Albumin/Globulin Ratio 1.1 Venous Blood Potassium Urine Color Straw Urine Clarity Clear Urine pH 5.0 Ur Specific Pearcy 1.005 Urine Protein Negative Urine Glucose (UA) Normal Urine Ketones Negative Urine Blood 1+ H Urine Nitrate Negative Urine Bilirubin Negative Urine Urobilinogen Normal Ur Leukocyte Esterase Neg Urine RBC (Auto) 1 Calcium Oxalate Crystal Occ H Hyaline Casts 0-2 Influenza Typ A,B (EIA) 07/19/17 17:20 WBC RBC Hgb Hct MCV MCH MCHC RDW Plt Count MPV Neut % (Auto) Lymph % (Auto) Frio % (Auto) Eos % (Auto) Baso % (Auto) Neut # Lymph # Frio # Eos # Baso # PT INR APTT pO2 31 VBG pH 7.36 VBG pCO2 43 VBG HCO3 22.8 VBG Total CO2 25.6 VBG O2 Sat (Calc) 67.3 H VBG Base Excess -1.3 L VBG Potassium 3.3 L Sodium 138.0 Chloride 106.0 Glucose 112 H Lactate 1.5 Potassium Carbon Dioxide Anion Gap BUN Creatinine Est GFR ( Amer) Est GFR (Non-Af Amer) Random Glucose Calcium Phosphorus Magnesium Total Bilirubin AST ALT Alkaline Phosphatase Troponin I NT-Pro-B Natriuret Pep Total Protein Albumin Globulin Albumin/Globulin Ratio Venous Blood Potassium 3.3 L Urine Color Urine Clarity Urine pH Ur Specific Pearcy Urine Protein Urine Glucose (UA) Urine Ketones Urine Blood Urine Nitrate Urine Bilirubin Urine Urobilinogen Ur Leukocyte Esterase Urine RBC (Auto) Calcium Oxalate Crystal Hyaline Casts Influenza Typ A,B (EIA) Assessment & Plan (1) Hemoptysis Status: Acute (2) Pneumonia Status: Acute - Assessment and Plan (Free Text) Assessment: r/o TB consult Dr Rebolledo
[2017-07-20 14:32] LABS: LEGIONELLA AG URINE NEGATIVE (NEGATIVE)
[2017-07-20 18:50] LABS: PROCALCITONIN SERUM 0.56 NG/ML (0.19-0.49)
[2017-07-21] MEDS: Piperacill/Tazo 3.375gm in Dex 3.375 GM/50 ML BAG IVPB SCH ×3 (05:18→20:23)
[2017-07-21 07:40] LABS: CHLORIDE 100 mmol/L (98-107); SODIUM 133 mmol/L (132-148)
[2017-07-21 07:42] LABS: AST/SGOT 50 U/L (17-59); BILIRUBIN,TOTAL 1.1 mg/dL (0.2-1.3); GFR AFRICAN-AMERICAN > 60
[2017-07-21 07:43] LABS: ALB/GLOB RATIO 1.1 (1.0-2.1); ALKALINE PHOSPHATASE 83 U/L (38-126); ALT/SGPT 57 U/L (21-72); BLOOD UREA NITROGEN 15 mg/dL (9-20); CALCIUM 8.2 mg/dl (8.6-10.4); CARBON DIOXIDE 22 mmol/L (22-30); GLUCOSE,RANDOM 144 mg/dL (75-110); TOTAL PROTEIN 6.9 g/dL (6.3-8.3)
[2017-07-21] MEDS: Albuterol 0.083% Inhal Sol (2.5 mg/3 mL) UD INH PRN (07:50)
[2017-07-21 08:40] LABS: BASO # 0.1 K/uL (0.0-0.2); BASO % 0.5 % (0.0-2.0); LYMPH # 0.8 K/uL (1.0-4.3); LYMPH % 6.3 % (20.0-40.0); MEAN CORPUSCULAR HEMOGLOBIN 28.7 pg (27.0-31.0); MEAN PLATELET VOLUME 7.9 fL (7.2-11.7); MONO % 8.6 % (0.0-10.0); PLATELET COUNT 235 K/uL (130-400); WHITE BLOOD COUNT 12.1 K/uL (4.8-10.8)
--- NOTE | 2017-07-21 08:53 | CP.PCM.PN ---
Subjective - Date & Time of Evaluation Date of Evaluation: 07/21/17 Time of Evaluation: 08:37 - Subjective Subjective: Pt no complain; cough feels much loser and less bloody. (+) is whitish, bld tinge only. Appetite is fair, nauseous at times. No CP, no SOB, (+) fever inc to 103 but no chills. no diarrhea, no vomiting Objective - Vital Signs/Intake and Output Vital Signs (last 24 hours): Temp Pulse Resp BP Pulse Ox 103 F H 91 H 20 101/68 97 07/21/17 08:19 07/20/17 23:30 07/20/17 23:30 07/20/17 23:30 07/20/17 23:30 Intake and Output: 07/21/17 07/21/17 06:59 18:59 Intake Total 360 Output Total 400 Balance -40 - Medications Medications: Current Medications Acetaminophen (Tylenol 325mg Tab) 650 mg PO Q4 PRN PRN Reason: Pain, Mild (1-3) Albuterol Sulfate (Albuterol 0.083% Inhal Kirstie (2.5 Mg/3 Ml) Ud) 2.5 mg INH RQ6 PRN PRN Reason: Shortness of Breath Last Admin: 07/21/17 07:50 Dose: 2.5 mg Ethambutol HCl (Myambutol) 800 mg PO DAILY [facility] Last Admin: 07/20/17 10:59 Dose: 800 mg Piperacillin Sod/Tazobactam Sod (Zosyn 3.375 Gm Iv Premix) 3.375 gm in 50 mls @ 100 mls/hr IVPB Q8H [facility] Last Admin: 07/21/17 05:18 Dose: 100 mls/hr Isoniazid (Niazid) 300 mg PO DAILY [facility] Last Admin: 07/20/17 10:59 Dose: 300 mg Losartan Potassium (Cozaar) 50 mg PO DAILY [facility] Last Admin: 07/20/17 09:07 Dose: 50 mg Pyrazinamide (Pyrazinamide) 1,000 mg PO DAILY [facility] Pyridoxine HCl (Vitamin B6 50 Mg Tab) 50 mg PO DAILY [facility] Last Admin: 07/20/17 10:59 Dose: 50 mg Rifampin (Rifampin Cap) 600 mg PO DAILY [facility] - Labs Labs: 07/21/17 08:35 07/21/17 07:13 PT 13.8 SECONDS (9.7-12.2) H 07/19/17 12:59 INR 1.2 07/19/17 12:59 APTT 38 SECONDS (21-34) H 07/19/17 12:59 - Constitutional Appears: No Acute Distress - Eye Exam Eye Exam: Normal appearance - ENT Exam ENT Exam: Mucous Membranes Moist - Neck Exam Neck Exam: Full ROM - Respiratory Exam Respiratory Exam: Decreased Breath Sounds, Rhonchi, Wheezes. absent: Rales - Cardiovascular Exam Cardiovascular Exam: REGULAR RHYTHM, +S1, +S2. absent: Gallop, JVD, Murmur - GI/Abdominal Exam GI & Abdominal Exam: Soft. absent: Tenderness, Rebound - Extremities Exam Extremities Exam: Normal Capillary Refill. absent: Calf Tenderness, Joint Swelling, Pedal Edema - Skin Skin Exam: Normal Color, Warm. absent: Pallor, Rash, Urticaria Assessment and Plan - Assessment and Plan (Free Text) Assessment: Fever/ abn CXR HTN Discuss to inc calorie intake Cont meds
[2017-07-21 10:14] LABS: BASOPHIL 1 % (0-2); NEUTROPHIL 88 % (50-75); TOTAL CELLS COUNTED 100
[2017-07-21] MEDS ORDERED: Promethazine 12.5 mg/10 ml Syrup PO PRN (10:27)
--- NOTE | 2017-07-21 10:28 | CP.PCM.PN ---
<RejiParis - Last Filed: 07/21/17 13:00> Subjective - Date & Time of Evaluation Date of Evaluation: 07/21/17 Time of Evaluation: 09:00 - Subjective Subjective: Pulmonology Note for Dr. Rebolledo's Service Patient seen and examined at bedside this morning. Febrile last night, tmax 103.1, admitted to productive cough with blood tinged sputum. Denied chills, headache, chest pain, SOB, cough abdominal pain, n/v/d/c, or urinary symptoms. Objective - Vital Signs/Intake and Output Vital Signs (last 24 hours): Temp Pulse Resp BP Pulse Ox 103 F H 86 20 123/71 97 07/21/17 08:19 07/21/17 08:00 07/21/17 08:00 07/21/17 08:00 07/21/17 08:00 Intake and Output: 07/21/17 07/21/17 06:59 18:59 Intake Total 360 Output Total 400 Balance -40 - Medications Medications: Current Medications Acetaminophen (Tylenol 325mg Tab) 650 mg PO Q4 PRN PRN Reason: Pain, Mild (1-3) Albuterol Sulfate (Albuterol 0.083% Inhal Kirstie (2.5 Mg/3 Ml) Ud) 2.5 mg INH RQ6 PRN PRN Reason: Shortness of Breath Last Admin: 07/21/17 07:50 Dose: 2.5 mg Ethambutol HCl (Myambutol) 800 mg PO DAILY [facility] Last Admin: 07/21/17 09:58 Dose: 800 mg Piperacillin Sod/Tazobactam Sod (Zosyn 3.375 Gm Iv Premix) 3.375 gm in 50 mls @ 100 mls/hr IVPB Q8H [facility] Last Admin: 07/21/17 05:18 Dose: 100 mls/hr Isoniazid (Niazid) 300 mg PO DAILY [facility] Last Admin: 07/21/17 09:58 Dose: 300 mg Losartan Potassium (Cozaar) 50 mg PO DAILY [facility] Last Admin: 07/21/17 09:58 Dose: 50 mg Pyrazinamide (Pyrazinamide) 1,000 mg PO DAILY [facility] Last Admin: 07/21/17 09:58 Dose: 1,000 mg Pyridoxine HCl (Vitamin B6 50 Mg Tab) 50 mg PO DAILY [facility] Last Admin: 07/21/17 09:58 Dose: 50 mg Rifampin (Rifampin Cap) 600 mg PO DAILY [facility] Last Admin: 07/21/17 10:16 Dose: 600 mg - Labs Labs: 07/21/17 08:35 07/21/17 07:13 PT 13.8 SECONDS (9.7-12.2) H 07/19/17 12:59 INR 1.2 07/19/17 12:59 APTT 38 SECONDS (21-34) H 07/19/17 12:59 - Additional Findings Additional findings: - Head Exam Head Exam: NORMAL INSPECTION, NORMOCEPHALIC - Eye Exam Eye Exam: EOMI, Normal appearance, PERRL Pupil Exam: NORMAL ACCOMODATION - ENT Exam ENT Exam: Mucous Membranes Dry - Neck Exam Neck exam: Positive for: Normal Inspection. Negative for: Lymphadenopathy, Thyromegaly - Respiratory Exam Respiratory Exam: Prolonged Expiratory Phase, Wheezes - Cardiovascular Exam Cardiovascular Exam: Tachycardia - GI/Abdominal Exam GI & Abdominal Exam: Normal Bowel Sounds, Soft. absent: Distended, Tenderness - Extremities Exam Extremities exam: Positive for: normal inspection, pedal pulses present. Negative for: pedal edema, tenderness - Back Exam Back exam: NORMAL INSPECTION - Neurological Exam Neurological exam: Alert, CN II-XII Intact, Oriented x3 - Psychiatric Exam Psychiatric exam: Normal Affect, Normal Mood - Skin Skin Exam: Dry, Intact, Normal Color, Warm Assessment and Plan - Assessment and Plan (Free Text) Plan: Suspected Tuberculosis Continue current management - will continue to monitor Imaging: CXR 07/19: Rostral patchy infiltrate left apex versus bony overlap or even bony abnormality at the left for 2nd and 3rd ribs. Consider follow-up two-view chest radiography or CT. No potential acute right pulmonary findings. CT Chest 07/19: Primarily upper lobe masses and infiltrates including a dominant cavitary mass in the right upper lobe. Strong consideration to granulomatous disease/ reactivation tuberculosis. Less likely considerations have been provided above.Cholelithiasis without CT evidence of acute cholecystitis. Medications: Zosyn by primary started 07/20 Ethambutol, Isoniazid, Rifampin, Pyridoxine, Pyrazinamide - started 07/20 by primary and ID - Dr. Ruff Results: Febrile - Tmax 103.1, continuted Leukocytosis, with left shift HIV NEGATIVE, rapid flu - negative, legionella- negative, HIV- negative, Mycoplasma Igm - negative, strep pneumo - negative Procalcitonin - 0.56 F/U quantiferon, AFBs Hx HTN DW Reji Garcia DO, PGY-1 <Devyn Rebolledo S - Last Filed: 07/21/17 16:38> Subjective - Date & Time of Evaluation Time of Evaluation: 12:15 Objective - Vital Signs/Intake and Output Vital Signs (last 24 hours): Temp Pulse Resp BP Pulse Ox 102.5 F H 105 H 20 135/75 96 07/21/17 16:08 07/21/17 15:34 07/21/17 15:34 07/21/17 15:34 07/21/17 15:34 Intake and Output: 07/21/17 07/21/17 06:59 18:59 Intake Total 360 Output Total 400 Balance -40 - Medications Medications: Current Medications Acetaminophen (Tylenol 325mg Tab) 650 mg PO Q4 PRN PRN Reason: Pain, Mild (1-3) Last Admin: 07/21/17 16:08 Dose: 650 mg Albuterol Sulfate (Albuterol 0.083% Inhal Kirstie (2.5 Mg/3 Ml) Ud) 2.5 mg INH RQ6 PRN PRN Reason: Shortness of Breath Last Admin: 07/21/17 07:50 Dose: 2.5 mg Ethambutol HCl (Myambutol) 800 mg PO DAILY [facility] Last Admin: 07/21/17 09:58 Dose: 800 mg Piperacillin Sod/Tazobactam Sod (Zosyn 3.375 Gm Iv Premix) 3.375 gm in 50 mls @ 100 mls/hr IVPB Q8H [facility] Last Admin: 07/21/17 12:08 Dose: 100 mls/hr Isoniazid (Niazid) 300 mg PO DAILY [facility] Last Admin: 07/21/17 09:58 Dose: 300 mg Losartan Potassium (Cozaar) 50 mg PO DAILY [facility] Last Admin: 07/21/17 09:58 Dose: 50 mg Promethazine HCl (Phenergan Syrup) 12.5 mg PO Q6 PRN PRN Reason: Cough Pyrazinamide (Pyrazinamide) 1,000 mg PO DAILY [facility] Last Admin: 07/21/17 09:58 Dose: 1,000 mg Pyridoxine HCl (Vitamin B6 50 Mg Tab) 50 mg PO DAILY [facility] Last Admin: 07/21/17 09:58 Dose: 50 mg Rifampin (Rifampin Cap) 600 mg PO DAILY [facility] Last Admin: 07/21/17 10:16 Dose: 600 mg - Labs Labs: 07/21/17 08:35 07/21/17 07:13 PT 13.8 SECONDS (9.7-12.2) H 07/19/17 12:59 INR 1.2 07/19/17 12:59 APTT 38 SECONDS (21-34) H 07/19/17 12:59 Attending/Attestation - Attestation I have personally seen and examined this patient.: Yes I have fully participated in the care of the patient.: Yes I have reviewed all pertinent clinical information, including history, physical exam and plan: Yes Notes (Text): 07/21/17 16:36 Patient seen and examined. Continue anti-TB medication Continue isolation Follow-up sputum AFB
[2017-07-21 11:13] LABS: H INFLUENZAE B NOT REQUIRED (NEGATIVE); N MENINGITIS ACY/W135 NOT REQUIRED (NEGATIVE); N MENINGITIS B/ECOLI K1 NOT REQUIRED (NEGATIVE)
--- NOTE | 2017-07-21 16:40 | CP.PCM.PN ---
Subjective - Date & Time of Evaluation Date of Evaluation: 07/21/17 Time of Evaluation: 07:00 - Subjective Subjective: STARTED TB MEDS RX TO CONT Objective - Vital Signs/Intake and Output Vital Signs (last 24 hours): Temp Pulse Resp BP Pulse Ox 102.5 F H 105 H 20 135/75 96 07/21/17 16:08 07/21/17 15:34 07/21/17 15:34 07/21/17 15:34 07/21/17 15:34 Intake and Output: 07/21/17 07/21/17 06:59 18:59 Intake Total 360 Output Total 400 Balance -40 - Medications Medications: Current Medications Acetaminophen (Tylenol 325mg Tab) 650 mg PO Q4 PRN PRN Reason: Pain, Mild (1-3) Last Admin: 07/21/17 16:08 Dose: 650 mg Albuterol Sulfate (Albuterol 0.083% Inhal Kirstie (2.5 Mg/3 Ml) Ud) 2.5 mg INH RQ6 PRN PRN Reason: Shortness of Breath Last Admin: 07/21/17 07:50 Dose: 2.5 mg Ethambutol HCl (Myambutol) 800 mg PO DAILY [facility] Last Admin: 07/21/17 09:58 Dose: 800 mg Piperacillin Sod/Tazobactam Sod (Zosyn 3.375 Gm Iv Premix) 3.375 gm in 50 mls @ 100 mls/hr IVPB Q8H [facility] Last Admin: 07/21/17 12:08 Dose: 100 mls/hr Isoniazid (Niazid) 300 mg PO DAILY [facility] Last Admin: 07/21/17 09:58 Dose: 300 mg Losartan Potassium (Cozaar) 50 mg PO DAILY [facility] Last Admin: 07/21/17 09:58 Dose: 50 mg Promethazine HCl (Phenergan Syrup) 12.5 mg PO Q6 PRN PRN Reason: Cough Pyrazinamide (Pyrazinamide) 1,000 mg PO DAILY [facility] Last Admin: 07/21/17 09:58 Dose: 1,000 mg Pyridoxine HCl (Vitamin B6 50 Mg Tab) 50 mg PO DAILY [facility] Last Admin: 07/21/17 09:58 Dose: 50 mg Rifampin (Rifampin Cap) 600 mg PO DAILY [facility] Last Admin: 07/21/17 10:16 Dose: 600 mg - Labs Labs: 07/21/17 08:35 07/21/17 07:13 PT 13.8 SECONDS (9.7-12.2) H 07/19/17 12:59 INR 1.2 07/19/17 12:59 APTT 38 SECONDS (21-34) H 07/19/17 12:59 - Constitutional Appears: Non-toxic, Chronically Ill - Head Exam Head Exam: NORMOCEPHALIC - Eye Exam Eye Exam: PERRL - ENT Exam ENT Exam: Mucous Membranes Dry - Neck Exam Neck Exam: absent: Lymphadenopathy - Respiratory Exam Respiratory Exam: Decreased Breath Sounds - Cardiovascular Exam Cardiovascular Exam: REGULAR RHYTHM - GI/Abdominal Exam GI & Abdominal Exam: Distended Assessment and Plan (1) Hemoptysis Status: Acute (2) Pneumonia Status: Acute
--- NOTE | 2017-07-21 20:59 | CP.PCM.PN ---
Subjective - Date & Time of Evaluation Date of Evaluation: 07/21/17 Time of Evaluation: 20:57 - Subjective Subjective: Patient was seen and examined at bedside. PPD was evaluated on the right arm which showed about a 7mm induration. Follow up with quantiferon to confirm screening. Objective - Vital Signs/Intake and Output Vital Signs (last 24 hours): Temp Pulse Resp BP Pulse Ox 100.2 F H 105 H 20 135/75 96 07/21/17 18:47 07/21/17 15:34 07/21/17 15:34 07/21/17 15:34 07/21/17 15:34 - Medications Medications: Current Medications Acetaminophen (Tylenol 325mg Tab) 650 mg PO Q4 PRN PRN Reason: Pain, Mild (1-3) Last Admin: 07/21/17 16:08 Dose: 650 mg Albuterol Sulfate (Albuterol 0.083% Inhal Kirstie (2.5 Mg/3 Ml) Ud) 2.5 mg INH RQ6 PRN PRN Reason: Shortness of Breath Last Admin: 07/21/17 07:50 Dose: 2.5 mg Ethambutol HCl (Myambutol) 800 mg PO DAILY [facility] Last Admin: 07/21/17 09:58 Dose: 800 mg Piperacillin Sod/Tazobactam Sod (Zosyn 3.375 Gm Iv Premix) 3.375 gm in 50 mls @ 100 mls/hr IVPB Q8H [facility] Last Admin: 07/21/17 20:23 Dose: 100 mls/hr Isoniazid (Niazid) 300 mg PO DAILY [facility] Last Admin: 07/21/17 09:58 Dose: 300 mg Losartan Potassium (Cozaar) 50 mg PO DAILY [facility] Last Admin: 07/21/17 09:58 Dose: 50 mg Promethazine HCl (Phenergan Syrup) 12.5 mg PO Q6 PRN PRN Reason: Cough Pyrazinamide (Pyrazinamide) 1,000 mg PO DAILY [facility] Last Admin: 07/21/17 09:58 Dose: 1,000 mg Pyridoxine HCl (Vitamin B6 50 Mg Tab) 50 mg PO DAILY [facility] Last Admin: 07/21/17 09:58 Dose: 50 mg Rifampin (Rifampin Cap) 600 mg PO DAILY [facility] Last Admin: 07/21/17 10:16 Dose: 600 mg - Labs Labs: 07/21/17 08:35 07/21/17 07:13 PT 13.8 SECONDS (9.7-12.2) H 07/19/17 12:59 INR 1.2 07/19/17 12:59 APTT 38 SECONDS (21-34) H 07/19/17 12:59
--- NOTE | 2017-07-21 22:22 | CARD ---
APPROVED REPORT EKG Measurement Heart [id number] <Conclusion> Normal sinus rhythm Right bundle branch block Abnormal ECG
[2017-07-22] MEDS: Piperacill/Tazo 3.375gm in Dex 3.375 GM/50 ML BAG IVPB SCH ×3 (06:13→21:19)
--- NOTE | 2017-07-22 09:20 | CP.PCM.PN ---
Subjective - Date & Time of Evaluation Date of Evaluation: 07/22/17 Time of Evaluation: 08:40 - Subjective Subjective: Pt no complain; appetite is getting erich. Feel bladimir "decrease in cough and breathing is normal". No CP, no SOB, no edema, no diarrhea, no n/v Objective - Vital Signs/Intake and Output Vital Signs (last 24 hours): Temp Pulse Resp BP Pulse Ox 97.7 F 82 20 132/86 98 07/22/17 08:00 07/22/17 08:00 07/22/17 08:00 07/22/17 08:00 07/22/17 08:00 Intake and Output: 07/22/17 07/22/17 06:59 18:59 Intake Total 550 Output Total 400 Balance 150 - Medications Medications: Current Medications Acetaminophen (Tylenol 325mg Tab) 650 mg PO Q4 PRN PRN Reason: Pain, Mild (1-3) Last Admin: 07/21/17 22:53 Dose: 650 mg Albuterol Sulfate (Albuterol 0.083% Inhal Kirstie (2.5 Mg/3 Ml) Ud) 2.5 mg INH RQ6 PRN PRN Reason: Shortness of Breath Last Admin: 07/21/17 07:50 Dose: 2.5 mg Ethambutol HCl (Myambutol) 800 mg PO DAILY [facility] Last Admin: 07/21/17 09:58 Dose: 800 mg Piperacillin Sod/Tazobactam Sod (Zosyn 3.375 Gm Iv Premix) 3.375 gm in 50 mls @ 100 mls/hr IVPB Q8H [facility] Last Admin: 07/22/17 06:13 Dose: 100 mls/hr Isoniazid (Niazid) 300 mg PO DAILY [facility] Last Admin: 07/21/17 09:58 Dose: 300 mg Losartan Potassium (Cozaar) 50 mg PO DAILY [facility] Last Admin: 07/21/17 09:58 Dose: 50 mg Promethazine HCl (Phenergan Syrup) 12.5 mg PO Q6 PRN PRN Reason: Cough Pyrazinamide (Pyrazinamide) 1,000 mg PO DAILY [facility] Last Admin: 07/21/17 09:58 Dose: 1,000 mg Pyridoxine HCl (Vitamin B6 50 Mg Tab) 50 mg PO DAILY [facility] Last Admin: 07/21/17 09:58 Dose: 50 mg Rifampin (Rifampin Cap) 600 mg PO DAILY [facility] Last Admin: 07/21/17 10:16 Dose: 600 mg - Labs Labs: 07/21/17 08:35 07/21/17 07:13 PT 13.8 SECONDS (9.7-12.2) H 07/19/17 12:59 INR 1.2 07/19/17 12:59 APTT 38 SECONDS (21-34) H 07/19/17 12:59 - Constitutional Appears: No Acute Distress - Eye Exam Eye Exam: Normal appearance - ENT Exam ENT Exam: Mucous Membranes Moist - Neck Exam Neck Exam: Full ROM. absent: Lymphadenopathy, Normal Inspection - Respiratory Exam Respiratory Exam: Decreased Breath Sounds. absent: Rales, Wheezes - Cardiovascular Exam Cardiovascular Exam: REGULAR RHYTHM, +S1, +S2. absent: Gallop, JVD, Murmur - GI/Abdominal Exam GI & Abdominal Exam: Soft. absent: Tenderness, Mass - Extremities Exam Extremities Exam: Full ROM. absent: Calf Tenderness, Joint Swelling, Normal Capillary Refill, Pedal Edema Assessment and Plan - Assessment and Plan (Free Text) Assessment: Pneumonia w/ PTB HTN Cont meds Await Microbiology
--- NOTE | 2017-07-22 09:44 | CP.PCM.PN ---
<Lydia Mendozaa - Last Filed: 07/22/17 11:22> Subjective - Date & Time of Evaluation Date of Evaluation: 07/22/17 Time of Evaluation: 09:00 - Subjective Subjective: Pulmonology Note for Dr. Rebolledo's Service Patient seen and examined at bedside this morning. Febrile last night, tmax 103.1, admitted to [facility] of a productive cough with blood tinged sputum. Patient reports his breathing has improved. Denied chills, headache, chest pain, abdominal pain, n/v/d/c, or urinary symptoms. Objective - Vital Signs/Intake and Output Vital Signs (last 24 hours): Temp Pulse Resp BP Pulse Ox 97.7 F 82 20 132/86 98 07/22/17 08:00 07/22/17 08:00 07/22/17 08:00 07/22/17 08:00 07/22/17 08:00 Intake and Output: 07/22/17 07/22/17 06:59 18:59 Intake Total 550 Output Total 400 Balance 150 - Medications Medications: Current Medications Acetaminophen (Tylenol 325mg Tab) 650 mg PO Q4 PRN PRN Reason: Pain, Mild (1-3) Last Admin: 07/21/17 22:53 Dose: 650 mg Albuterol Sulfate (Albuterol 0.083% Inhal Kirstie (2.5 Mg/3 Ml) Ud) 2.5 mg INH RQ6 PRN PRN Reason: Shortness of Breath Last Admin: 07/21/17 07:50 Dose: 2.5 mg Ethambutol HCl (Myambutol) 800 mg PO DAILY [facility] Last Admin: 07/21/17 09:58 Dose: 800 mg Piperacillin Sod/Tazobactam Sod (Zosyn 3.375 Gm Iv Premix) 3.375 gm in 50 mls @ 100 mls/hr IVPB Q8H [facility] Last Admin: 07/22/17 06:13 Dose: 100 mls/hr Isoniazid (Niazid) 300 mg PO DAILY [facility] Last Admin: 07/21/17 09:58 Dose: 300 mg Losartan Potassium (Cozaar) 50 mg PO DAILY [facility] Last Admin: 07/21/17 09:58 Dose: 50 mg Promethazine HCl (Phenergan Syrup) 12.5 mg PO Q6 PRN PRN Reason: Cough Pyrazinamide (Pyrazinamide) 1,000 mg PO DAILY [facility] Last Admin: 07/21/17 09:58 Dose: 1,000 mg Pyridoxine HCl (Vitamin B6 50 Mg Tab) 50 mg PO DAILY [facility] Last Admin: 07/21/17 09:58 Dose: 50 mg Rifampin (Rifampin Cap) 600 mg PO DAILY [facility] Last Admin: 07/21/17 10:16 Dose: 600 mg - Labs Labs: 07/21/17 08:35 07/21/17 07:13 PT 13.8 SECONDS (9.7-12.2) H 07/19/17 12:59 INR 1.2 07/19/17 12:59 APTT 38 SECONDS (21-34) H 07/19/17 12:59 - Additional Findings Additional findings: - Head Exam Head Exam: NORMAL INSPECTION, NORMOCEPHALIC - Eye Exam Eye Exam: EOMI, Normal appearance, PERRL Pupil Exam: NORMAL ACCOMODATION - ENT Exam ENT Exam: Mucous Membranes Dry - Neck Exam Neck exam: Positive for: Normal Inspection. Negative for: Lymphadenopathy, Thyromegaly - Respiratory Exam Respiratory Exam: Prolonged Expiratory Phase, Wheezes - Cardiovascular Exam Cardiovascular Exam: Tachycardia - GI/Abdominal Exam GI & Abdominal Exam: Normal Bowel Sounds, Soft. absent: Distended, Tenderness - Extremities Exam Extremities exam: Positive for: normal inspection, pedal pulses present. Negative for: pedal edema, tenderness - Back Exam Back exam: NORMAL INSPECTION - Neurological Exam Neurological exam: Alert, CN II-XII Intact, Oriented x3 - Psychiatric Exam Psychiatric exam: Normal Affect, Normal Mood - Skin Skin Exam: Dry, Intact, Normal Color, Warm Assessment and Plan - Assessment and Plan (Free Text) Plan: Confirmed Tuberculosis Isolation Precautions Continue current management - will continue to monitor Imaging: CXR 07/19: Rostral patchy infiltrate left apex versus bony overlap or even bony abnormality at the left for 2nd and 3rd ribs. Consider follow-up two-view chest radiography or CT. No potential acute right pulmonary findings. CT Chest 07/19: Primarily upper lobe masses and infiltrates including a dominant cavitary mass in the right upper lobe. Strong consideration to granulomatous disease/ reactivation tuberculosis. Less likely considerations have been provided above.Cholelithiasis without CT evidence of acute cholecystitis. Medications: Zosyn by primary started 07/20 Ethambutol, Isoniazid, Rifampin, Pyridoxine, Pyrazinamide - started 07/20 by primary and ID - Dr. Ruff Results: Febrile - Tmax 103.1, continuted Leukocytosis, with left shift HIV NEGATIVE, rapid flu - negative, legionella- negative, HIV- negative, Mycoplasma Igm - negative, strep pneumo - negative Procalcitonin - 0.56 AFBs - + TB F/U quantiferon Hx HTN DW Reji Garcia DO, PGY-1 <Devyn Rebolledo S - Last Filed: 07/22/17 16:38> Subjective - Date & Time of Evaluation Time of Evaluation: 11:10 Objective - Vital Signs/Intake and Output Vital Signs (last 24 hours): Temp Pulse Resp BP Pulse Ox 102.8 F H 80 20 126/69 96 07/22/17 14:02 07/22/17 14:02 07/22/17 14:02 07/22/17 14:02 07/22/17 14:02 Intake and Output: 07/22/17 07/22/17 06:59 18:59 Intake Total 550 Output Total 400 Balance 150 - Medications Medications: Current Medications Acetaminophen (Tylenol 325mg Tab) 650 mg PO Q4 PRN PRN Reason: Pain, Mild (1-3) Last Admin: 07/22/17 14:01 Dose: 650 mg Albuterol Sulfate (Albuterol 0.083% Inhal Kirstie (2.5 Mg/3 Ml) Ud) 2.5 mg INH RQ6 PRN PRN Reason: Shortness of Breath Last Admin: 07/21/17 07:50 Dose: 2.5 mg Ethambutol HCl (Myambutol) 800 mg PO DAILY [facility] Last Admin: 07/22/17 10:17 Dose: 800 mg Piperacillin Sod/Tazobactam Sod (Zosyn 3.375 Gm Iv Premix) 3.375 gm in 50 mls @ 100 mls/hr IVPB Q8H [facility] Last Admin: 07/22/17 12:59 Dose: 100 mls/hr Isoniazid (Niazid) 300 mg PO DAILY [facility] Last Admin: 07/22/17 10:17 Dose: 300 mg Losartan Potassium (Cozaar) 50 mg PO DAILY [facility] Last Admin: 07/22/17 10:17 Dose: 50 mg Promethazine HCl (Phenergan Syrup) 12.5 mg PO Q6 PRN PRN Reason: Cough Pyrazinamide (Pyrazinamide) 1,000 mg PO DAILY [facility] Last Admin: 07/22/17 10:17 Dose: 1,000 mg Pyridoxine HCl (Vitamin B6 50 Mg Tab) 50 mg PO DAILY [facility] Last Admin: 07/22/17 10:17 Dose: 50 mg Rifampin (Rifampin Cap) 600 mg PO DAILY [facility] Last Admin: 07/22/17 10:17 Dose: 600 mg - Labs Labs: 07/21/17 08:35 07/21/17 07:13 PT 13.8 SECONDS (9.7-12.2) H 07/19/17 12:59 INR 1.2 07/19/17 12:59 APTT 38 SECONDS (21-34) H 07/19/17 12:59 Attending/Attestation - Attestation I have personally seen and examined this patient.: Yes I have fully participated in the care of the patient.: Yes I have reviewed all pertinent clinical information, including history, physical exam and plan: Yes Notes (Text): 07/22/17 16:38 patient seen and examined. Continue respiratory isolation continue anti-TB meds Followup culture and sensitivity
--- NOTE | 2017-07-22 19:11 | CP.PCM.PN ---
Subjective - Date & Time of Evaluation Date of Evaluation: 07/22/17 Time of Evaluation: 08:00 - Subjective Subjective: AFB + rx in progress Objective - Vital Signs/Intake and Output Vital Signs (last 24 hours): Temp Pulse Resp BP Pulse Ox 99.3 F 85 20 112/75 95 07/22/17 16:00 07/22/17 16:00 07/22/17 16:00 07/22/17 16:00 07/22/17 16:00 Intake and Output: 07/22/17 07/23/17 18:59 06:59 Intake Total 530 Balance 530 - Medications Medications: Current Medications Acetaminophen (Tylenol 325mg Tab) 650 mg PO Q4 PRN PRN Reason: Pain, Mild (1-3) Last Admin: 07/22/17 14:01 Dose: 650 mg Albuterol Sulfate (Albuterol 0.083% Inhal Kirstie (2.5 Mg/3 Ml) Ud) 2.5 mg INH RQ6 PRN PRN Reason: Shortness of Breath Last Admin: 07/21/17 07:50 Dose: 2.5 mg Ethambutol HCl (Myambutol) 800 mg PO DAILY [facility] Last Admin: 07/22/17 10:17 Dose: 800 mg Piperacillin Sod/Tazobactam Sod (Zosyn 3.375 Gm Iv Premix) 3.375 gm in 50 mls @ 100 mls/hr IVPB Q8H [facility] Last Admin: 07/22/17 12:59 Dose: 100 mls/hr Isoniazid (Niazid) 300 mg PO DAILY [facility] Last Admin: 07/22/17 10:17 Dose: 300 mg Losartan Potassium (Cozaar) 50 mg PO DAILY [facility] Last Admin: 07/22/17 10:17 Dose: 50 mg Promethazine HCl (Phenergan Syrup) 12.5 mg PO Q6 PRN PRN Reason: Cough Pyrazinamide (Pyrazinamide) 1,000 mg PO DAILY [facility] Last Admin: 07/22/17 10:17 Dose: 1,000 mg Pyridoxine HCl (Vitamin B6 50 Mg Tab) 50 mg PO DAILY [facility] Last Admin: 07/22/17 10:17 Dose: 50 mg Rifampin (Rifampin Cap) 600 mg PO DAILY [facility] Last Admin: 07/22/17 10:17 Dose: 600 mg - Labs Labs: 07/21/17 08:35 07/21/17 07:13 PT 13.8 SECONDS (9.7-12.2) H 07/19/17 12:59 INR 1.2 07/19/17 12:59 APTT 38 SECONDS (21-34) H 07/19/17 12:59 - Constitutional Appears: Non-toxic, Chronically Ill - Head Exam Head Exam: NORMOCEPHALIC - Eye Exam Eye Exam: PERRL - ENT Exam ENT Exam: Mucous Membranes Dry - Neck Exam Neck Exam: absent: Lymphadenopathy - Respiratory Exam Respiratory Exam: Decreased Breath Sounds - Cardiovascular Exam Cardiovascular Exam: REGULAR RHYTHM - GI/Abdominal Exam GI & Abdominal Exam: Distended Assessment and Plan (1) Hemoptysis Status: Acute (2) Pneumonia Status: Acute
--- NOTE | 2017-07-23 01:02 | CP.PCM.PN ---
Subjective - Date & Time of Evaluation Date of Evaluation: 07/22/17 Time of Evaluation: 23:00 - Subjective Subjective: Patient was seen and examined at bedside. PPD was evaluated on the right arm which showed about a 5mm induration. Follow up with quantiferon to confirm screening. Objective - Vital Signs/Intake and Output Vital Signs (last 24 hours): Temp Pulse Resp BP Pulse Ox 101.8 F H 85 20 112/75 95 07/22/17 21:19 07/22/17 16:00 07/22/17 16:00 07/22/17 16:00 07/22/17 16:00 Intake and Output: 07/22/17 07/23/17 18:59 06:59 Intake Total 530 Balance 530 - Medications Medications: Current Medications Acetaminophen (Tylenol 325mg Tab) 650 mg PO Q4 PRN PRN Reason: Pain, Mild (1-3) Last Admin: 07/22/17 21:19 Dose: 650 mg Albuterol Sulfate (Albuterol 0.083% Inhal Kirstie (2.5 Mg/3 Ml) Ud) 2.5 mg INH RQ6 PRN PRN Reason: Shortness of Breath Last Admin: 07/21/17 07:50 Dose: 2.5 mg Ethambutol HCl (Myambutol) 800 mg PO DAILY [facility] Last Admin: 07/22/17 10:17 Dose: 800 mg Piperacillin Sod/Tazobactam Sod (Zosyn 3.375 Gm Iv Premix) 3.375 gm in 50 mls @ 100 mls/hr IVPB Q8H [facility] Last Admin: 07/22/17 21:19 Dose: 100 mls/hr Isoniazid (Niazid) 300 mg PO DAILY [facility] Last Admin: 07/22/17 10:17 Dose: 300 mg Losartan Potassium (Cozaar) 50 mg PO DAILY [facility] Last Admin: 07/22/17 10:17 Dose: 50 mg Promethazine HCl (Phenergan Syrup) 12.5 mg PO Q6 PRN PRN Reason: Cough Pyrazinamide (Pyrazinamide) 1,000 mg PO DAILY [facility] Last Admin: 07/22/17 10:17 Dose: 1,000 mg Pyridoxine HCl (Vitamin B6 50 Mg Tab) 50 mg PO DAILY [facility] Last Admin: 07/22/17 10:17 Dose: 50 mg Rifampin (Rifampin Cap) 600 mg PO DAILY [facility] Last Admin: 07/22/17 10:17 Dose: 600 mg - Labs Labs: 07/21/17 08:35 07/21/17 07:13 PT 13.8 SECONDS (9.7-12.2) H 07/19/17 12:59 INR 1.2 07/19/17 12:59 APTT 38 SECONDS (21-34) H 07/19/17 12:59
[2017-07-23] MEDS: Piperacill/Tazo 3.375gm in Dex 3.375 GM/50 ML BAG IVPB SCH (04:54)
--- NOTE | 2017-07-23 08:18 | CP.PCM.PN ---
Subjective - Date & Time of Evaluation Date of Evaluation: 07/23/17 Time of Evaluation: 08:00 - Subjective Subjective: Pt no complain. No CP, no SOB, no edema, no diarrhea Objective - Vital Signs/Intake and Output Vital Signs (last 24 hours): Temp Pulse Resp BP Pulse Ox 98.4 F 86 20 111/66 95 07/22/17 23:05 07/22/17 23:05 07/22/17 23:05 07/22/17 23:05 07/22/17 23:05 - Medications Medications: Current Medications Acetaminophen (Tylenol 325mg Tab) 650 mg PO Q4 PRN PRN Reason: Pain, Mild (1-3) Last Admin: 07/22/17 21:19 Dose: 650 mg Albuterol Sulfate (Albuterol 0.083% Inhal Kirstie (2.5 Mg/3 Ml) Ud) 2.5 mg INH RQ6 PRN PRN Reason: Shortness of Breath Last Admin: 07/21/17 07:50 Dose: 2.5 mg Ethambutol HCl (Myambutol) 800 mg PO DAILY [facility] Last Admin: 07/22/17 10:17 Dose: 800 mg Piperacillin Sod/Tazobactam Sod (Zosyn 3.375 Gm Iv Premix) 3.375 gm in 50 mls @ 100 mls/hr IVPB Q8H [facility] Last Admin: 07/23/17 04:54 Dose: 100 mls/hr Isoniazid (Niazid) 300 mg PO DAILY [facility] Last Admin: 07/22/17 10:17 Dose: 300 mg Losartan Potassium (Cozaar) 50 mg PO DAILY [facility] Last Admin: 07/22/17 10:17 Dose: 50 mg Promethazine HCl (Phenergan Syrup) 12.5 mg PO Q6 PRN PRN Reason: Cough Pyrazinamide (Pyrazinamide) 1,000 mg PO DAILY [facility] Last Admin: 07/22/17 10:17 Dose: 1,000 mg Pyridoxine HCl (Vitamin B6 50 Mg Tab) 50 mg PO DAILY [facility] Last Admin: 07/22/17 10:17 Dose: 50 mg Rifampin (Rifampin Cap) 600 mg PO DAILY [facility] Last Admin: 07/22/17 10:17 Dose: 600 mg - Labs Labs: 07/21/17 08:35 07/21/17 07:13 PT 13.8 SECONDS (9.7-12.2) H 07/19/17 12:59 INR 1.2 07/19/17 12:59 APTT 38 SECONDS (21-34) H 07/19/17 12:59 - Constitutional Appears: No Acute Distress - Eye Exam Eye Exam: Normal appearance - ENT Exam ENT Exam: Mucous Membranes Moist - Neck Exam Neck Exam: Full ROM. absent: Lymphadenopathy - Respiratory Exam Respiratory Exam: Clear to Ausculation Bilateral. absent: Rales, Rhonchi, Wheezes - Cardiovascular Exam Cardiovascular Exam: REGULAR RHYTHM, +S1, +S2. absent: Gallop, Murmur - GI/Abdominal Exam GI & Abdominal Exam: Soft. absent: Tenderness, Mass - Extremities Exam Extremities Exam: Full ROM, Normal Capillary Refill. absent: Calf Tenderness, Joint Swelling, Pedal Edema Assessment and Plan - Assessment and Plan (Free Text) Assessment: prob PTB HTN Refer to [facility] Cont meds/ recheck labs
--- NOTE | 2017-07-23 09:18 | CP.PCM.PN ---
Subjective - Date & Time of Evaluation Date of Evaluation: 07/23/17 Time of Evaluation: 09:00 - Subjective Subjective: Pulmonology Note for Dr. Rebolledo's Service Patient seen and examined at bedside this morning. Febrile last night, tmax 101.8, admitted to [facility] of a productive cough, no chest pain, no SOB. Denied chills, headache, chest pain, abdominal pain, n/v/d/c, or urinary symptoms. Objective - Vital Signs/Intake and Output Vital Signs (last 24 hours): Temp Pulse Resp BP Pulse Ox 100.3 F H 117 H 21 119/76 95 07/23/17 08:39 07/23/17 08:39 07/23/17 08:39 07/23/17 08:39 07/23/17 08:39 - Medications Medications: Current Medications Acetaminophen (Tylenol 325mg Tab) 650 mg PO Q6H PRN PRN Reason: Fever >100.4 F Ethambutol HCl (Myambutol) 800 mg PO DAILY [facility] Last Admin: 07/22/17 10:17 Dose: 800 mg Isoniazid (Niazid) 300 mg PO DAILY [facility] Last Admin: 07/22/17 10:17 Dose: 300 mg Losartan Potassium (Cozaar) 50 mg PO DAILY [facility] Last Admin: 07/22/17 10:17 Dose: 50 mg Moxifloxacin HCl (Avelox) 400 mg PO DAILY [facility] Pyrazinamide (Pyrazinamide) 1,000 mg PO DAILY [facility] Last Admin: 07/22/17 10:17 Dose: 1,000 mg Pyridoxine HCl (Vitamin B6 50 Mg Tab) 50 mg PO DAILY [facility] Last Admin: 07/22/17 10:17 Dose: 50 mg Rifampin (Rifampin Cap) 600 mg PO DAILY [facility] Last Admin: 07/22/17 10:17 Dose: 600 mg - Labs Labs: 07/21/17 08:35 07/21/17 07:13 PT 13.8 SECONDS (9.7-12.2) H 07/19/17 12:59 INR 1.2 07/19/17 12:59 APTT 38 SECONDS (21-34) H 07/19/17 12:59 - Additional Findings Additional findings: - Head Exam Head Exam: NORMAL INSPECTION, NORMOCEPHALIC - Eye Exam Eye Exam: EOMI, Normal appearance, PERRL Pupil Exam: NORMAL ACCOMODATION - ENT Exam ENT Exam: Mucous Membranes Dry - Neck Exam Neck exam: Positive for: Normal Inspection. Negative for: Lymphadenopathy, Thyromegaly - Respiratory Exam Respiratory Exam: Prolonged Expiratory Phase, Wheezes - Cardiovascular Exam Cardiovascular Exam: Tachycardia - GI/Abdominal Exam GI & Abdominal Exam: Normal Bowel Sounds, Soft. absent: Distended, Tenderness - Extremities Exam Extremities exam: Positive for: normal inspection, pedal pulses present. Negative for: pedal edema, tenderness - Back Exam Back exam: NORMAL INSPECTION - Neurological Exam Neurological exam: Alert, CN II-XII Intact, Oriented x3 - Psychiatric Exam Psychiatric exam: Normal Affect, Normal Mood - Skin Skin Exam: Dry, Intact, Normal Color, Warm Assessment and Plan - Assessment and Plan (Free Text) Plan: Confirmed Tuberculosis Isolation Precautions Continue current management - will continue to monitor Imaging: CXR 07/19: Rostral patchy infiltrate left apex versus bony overlap or even bony abnormality at the left for 2nd and 3rd ribs. Consider follow-up two-view chest radiography or CT. No potential acute right pulmonary findings. CT Chest 07/19: Primarily upper lobe masses and infiltrates including a dominant cavitary mass in the right upper lobe. Strong consideration to granulomatous disease/ reactivation tuberculosis. Less likely considerations have been provided above.Cholelithiasis without CT evidence of acute cholecystitis. Medications: Zosyn by primary started 07/20- last dose today 07/22/17 Ethambutol, Isoniazid, Rifampin, Pyridoxine, Pyrazinamide - started 07/20 by primary and ID - Dr. Ruff Results: Febrile - Tmax 101.8 HIV NEGATIVE, rapid flu - negative, legionella- negative, HIV- negative, Mycoplasma Igm - negative, strep pneumo - negative Procalcitonin - 0.56 AFBs - + TB x3 PPD +5mm induration Quantiferon - negative Hx HTN DW Dr. Rebolledo, Reji SPEARS, PGY-1
--- NOTE | 2017-07-23 15:53 | CP.PCM.PN ---
Subjective - Date & Time of Evaluation Date of Evaluation: 07/23/17 Time of Evaluation: 08:00 - Subjective Subjective: ON [place] RX Febrile last night, tmax 101.8, admitted to [facility] of a productive cough, no chest pain, no SOB. Objective - Vital Signs/Intake and Output Vital Signs (last 24 hours): Temp Pulse Resp BP Pulse Ox 98 F 67 20 126/78 97 07/23/17 15:22 07/23/17 15:22 07/23/17 15:22 07/23/17 15:22 07/23/17 15:22 Intake and Output: 07/23/17 07/23/17 06:59 18:59 Intake Total 1000 Balance 1000 - Medications Medications: Current Medications Acetaminophen (Tylenol 325mg Tab) 650 mg PO Q6H PRN PRN Reason: Fever >100.4 F Last Admin: 07/23/17 10:11 Dose: 650 mg Ethambutol HCl (Myambutol) 800 mg PO DAILY [facility] Last Admin: 07/23/17 10:11 Dose: 800 mg Isoniazid (Niazid) 300 mg PO DAILY [facility] Last Admin: 07/23/17 10:11 Dose: 300 mg Losartan Potassium (Cozaar) 50 mg PO DAILY [facility] Last Admin: 07/23/17 10:11 Dose: 50 mg Moxifloxacin HCl (Avelox) 400 mg PO DAILY [facility] Last Admin: 07/23/17 10:11 Dose: 400 mg Pyrazinamide (Pyrazinamide) 1,000 mg PO DAILY [facility] Last Admin: 07/23/17 10:11 Dose: 1,000 mg Pyridoxine HCl (Vitamin B6 50 Mg Tab) 50 mg PO DAILY [facility] Last Admin: 07/23/17 10:10 Dose: 50 mg Rifampin (Rifampin Cap) 600 mg PO DAILY [facility] Last Admin: 07/23/17 10:10 Dose: 600 mg - Labs Labs: 07/21/17 08:35 07/21/17 07:13 PT 13.8 SECONDS (9.7-12.2) H 07/19/17 12:59 INR 1.2 07/19/17 12:59 APTT 38 SECONDS (21-34) H 07/19/17 12:59 - Constitutional Appears: Non-toxic, Cachectic, Chronically Ill - Head Exam Head Exam: NORMOCEPHALIC - Eye Exam Eye Exam: PERRL. absent: Scleral icterus - ENT Exam ENT Exam: Mucous Membranes Dry - Neck Exam Neck Exam: absent: Lymphadenopathy - Respiratory Exam Respiratory Exam: Decreased Breath Sounds, Rhonchi - Cardiovascular Exam Cardiovascular Exam: REGULAR RHYTHM, +S1, +S2 - GI/Abdominal Exam GI & Abdominal Exam: Distended, Soft. absent: Tenderness - Rectal Exam Rectal Exam: Deferred - Exam Exam: NORMAL INSPECTION - Extremities Exam Extremities Exam: absent: Calf Tenderness, Pedal Edema - Back Exam Back Exam: absent: CVA tenderness (L), CVA tenderness (R) - Neurological Exam Neurological Exam: Alert, Awake, Oriented x3 - Psychiatric Exam Psychiatric exam: Depressed - Skin Skin Exam: Dry, Intact Assessment and Plan (1) Hemoptysis Status: Acute (2) Pneumonia Status: Acute (3) Tuberculosis Status: Acute (4) Tuberculosis Status: Acute
[2017-07-24 08:03] LABS: HEMATOCRIT 32.7 % (35.0-51.0); MEAN CORPUSCULAR HEMOGLOBIN 29.1 pg (27.0-31.0); MEAN CORPUSCULAR HGB CONC 33.8 g/dL (33.0-37.0); MEAN PLATELET VOLUME 7.7 fL (7.2-11.7); RED CELL DISTRIBUTION WIDTH 13.3 % (11.5-14.5); WHITE BLOOD COUNT 8.2 K/uL (4.8-10.8)
--- NOTE | 2017-07-24 08:04 | CP.PCM.PN ---
Subjective - Date & Time of Evaluation Date of Evaluation: 07/24/17 Time of Evaluation: 07:40 - Subjective Subjective: Pt no complain. No CP, no SOB, no edema, (+) min dry cough no diarrhea, no n/v Objective - Vital Signs/Intake and Output Vital Signs (last 24 hours): Temp Pulse Resp BP Pulse Ox 98.4 F 106 H 20 137/77 95 07/24/17 07:26 07/24/17 07:26 07/24/17 07:26 07/24/17 07:26 07/24/17 07:26 Intake and Output: 07/24/17 07/24/17 06:59 18:59 Intake Total 1000 Balance 1000 - Medications Medications: Current Medications Acetaminophen (Tylenol 325mg Tab) 650 mg PO Q6H PRN PRN Reason: Fever >100.4 F Last Admin: 07/23/17 10:11 Dose: 650 mg Ethambutol HCl (Myambutol) 800 mg PO DAILY [facility] Last Admin: 07/23/17 10:11 Dose: 800 mg Isoniazid (Niazid) 300 mg PO DAILY [facility] Last Admin: 07/23/17 10:11 Dose: 300 mg Losartan Potassium (Cozaar) 50 mg PO DAILY [facility] Last Admin: 07/23/17 10:11 Dose: 50 mg Moxifloxacin HCl (Avelox) 400 mg PO DAILY [facility] Last Admin: 07/23/17 10:11 Dose: 400 mg Pyrazinamide (Pyrazinamide) 1,000 mg PO DAILY [facility] Last Admin: 07/23/17 10:11 Dose: 1,000 mg Pyridoxine HCl (Vitamin B6 50 Mg Tab) 50 mg PO DAILY [facility] Last Admin: 07/23/17 10:10 Dose: 50 mg Rifampin (Rifampin Cap) 600 mg PO DAILY [facility] Last Admin: 07/23/17 10:10 Dose: 600 mg - Labs Labs: 07/21/17 08:35 07/21/17 07:13 PT 13.8 SECONDS (9.7-12.2) H 07/19/17 12:59 INR 1.2 07/19/17 12:59 APTT 38 SECONDS (21-34) H 07/19/17 12:59 - Constitutional Appears: Well - Eye Exam Eye Exam: Normal appearance - ENT Exam ENT Exam: Mucous Membranes Moist - Neck Exam Neck Exam: Full ROM. absent: Lymphadenopathy, Normal Inspection - Respiratory Exam Respiratory Exam: Decreased Breath Sounds. absent: Rales, Rhonchi, Wheezes - Cardiovascular Exam Cardiovascular Exam: +S1, +S2. absent: Gallop, REGULAR RHYTHM, JVD, Murmur - GI/Abdominal Exam GI & Abdominal Exam: Soft. absent: Tenderness, Mass - Extremities Exam Extremities Exam: Full ROM, Normal Capillary Refill. absent: Calf Tenderness, Joint Swelling, Pedal Edema Assessment and Plan - Assessment and Plan (Free Text) Assessment: Abn CXR/ (+) AFB - likely PTB HTN Cont meds Seen c/o [facility]
[2017-07-24 08:21] LABS: POTASSIUM 3.4 mmol/L (3.6-5.2)
[2017-07-24 08:23] LABS: ALB/GLOB RATIO 0.8 (1.0-2.1); ALT/SGPT 66 U/L (21-72); AST/SGOT 45 U/L (17-59); BILIRUBIN,TOTAL 1.4 mg/dL (0.2-1.3); BLOOD UREA NITROGEN 10 mg/dL (9-20); CALCIUM 8.4 mg/dl (8.6-10.4); CARBON DIOXIDE 21 mmol/L (22-30); GFR AFRICAN-AMERICAN > 60; GLUCOSE,RANDOM 137 mg/dL (75-110); TOTAL PROTEIN 7.6 g/dL (6.3-8.3)
[2017-07-24 08:28] LABS: CHLORIDE 97 mmol/L (98-107); SODIUM 128 mmol/L (132-148)
[2017-07-24 08:29] LABS: ALKALINE PHOSPHATASE 219 U/L (38-126)
[2017-07-24] MEDS ORDERED: Potassium Chloride 20 mEq ER Tab PO ONE (14:20)
[2017-07-25 07:24] LABS: BASO % 0.2 % (0.0-2.0); EOS # 0.1 K/uL (0.0-0.7); EOS % 1.1 % (0.0-4.0); HEMATOCRIT 36.8 % (35.0-51.0); LYMPH # 1.1 K/uL (1.0-4.3); LYMPH % 10.5 % (20.0-40.0); MEAN CELL VOLUME 85.6 fL (80.0-94.0); MEAN CORPUSCULAR HEMOGLOBIN 28.6 pg (27.0-31.0); MEAN CORPUSCULAR HGB CONC 33.4 g/dL (33.0-37.0); MEAN PLATELET VOLUME 7.5 fL (7.2-11.7); MONO # 1.5 K/uL (0.0-0.8); MONO % 14.7 % (0.0-10.0); RED CELL DISTRIBUTION WIDTH 13.6 % (11.5-14.5); WHITE BLOOD COUNT 10.3 K/uL (4.8-10.8)
--- NOTE | 2017-07-25 13:38 | CP.PCM.PN ---
Subjective - Date & Time of Evaluation Date of Evaluation: 07/25/17 Time of Evaluation: 07:00 - Subjective Subjective: rx for TB in progress need 3 neg AFB before discharge Objective - Vital Signs/Intake and Output Vital Signs (last 24 hours): Temp Pulse Resp BP Pulse Ox 98.3 F 96 H 20 106/73 96 07/25/17 07:20 07/25/17 07:20 07/25/17 07:20 07/25/17 07:20 07/25/17 07:20 - Medications Medications: Current Medications Acetaminophen (Tylenol 325mg Tab) 650 mg PO Q6H PRN PRN Reason: Fever >100.4 F Last Admin: 07/23/17 10:11 Dose: 650 mg Ethambutol HCl (Myambutol) 800 mg PO DAILY [facility] Last Admin: 07/25/17 09:19 Dose: 800 mg Isoniazid (Niazid) 300 mg PO DAILY [facility] Last Admin: 07/25/17 09:19 Dose: 300 mg Losartan Potassium (Cozaar) 50 mg PO DAILY [facility] Last Admin: 07/25/17 09:19 Dose: 50 mg Moxifloxacin HCl (Avelox) 400 mg PO DAILY [facility] Last Admin: 07/25/17 09:19 Dose: 400 mg Pyrazinamide (Pyrazinamide) 1,000 mg PO DAILY [facility] Last Admin: 07/25/17 09:19 Dose: 1,000 mg Pyridoxine HCl (Vitamin B6 50 Mg Tab) 50 mg PO DAILY [facility] Last Admin: 07/25/17 09:19 Dose: 50 mg Rifampin (Rifampin Cap) 600 mg PO DAILY [facility] Last Admin: 07/25/17 09:18 Dose: 600 mg - Labs Labs: 07/25/17 07:11 07/24/17 07:46 PT 13.8 SECONDS (9.7-12.2) H 07/19/17 12:59 INR 1.2 07/19/17 12:59 APTT 38 SECONDS (21-34) H 07/19/17 12:59 - Constitutional Appears: Non-toxic, Chronically Ill - Head Exam Head Exam: NORMOCEPHALIC - Eye Exam Eye Exam: PERRL - ENT Exam ENT Exam: Mucous Membranes Dry - Neck Exam Neck Exam: absent: Lymphadenopathy - Respiratory Exam Respiratory Exam: Decreased Breath Sounds - Cardiovascular Exam Cardiovascular Exam: REGULAR RHYTHM - GI/Abdominal Exam GI & Abdominal Exam: Distended Assessment and Plan (1) Hemoptysis Status: Acute (2) Pneumonia Status: Acute (3) Tuberculosis Status: Acute (4) Tuberculosis Status: Acute
[2017-07-25 18:27] LABS: CHLORIDE 94 mmol/L (98-107)
[2017-07-25 18:28] LABS: POTASSIUM 4.1 mmol/L (3.6-5.2); SODIUM 130 mmol/L (132-148)
[2017-07-25 18:30] LABS: BILIRUBIN,TOTAL 1.3 mg/dL (0.2-1.3); CARBON DIOXIDE 23 mmol/L (22-30); GFR AFRICAN-AMERICAN > 60
[2017-07-25 18:31] LABS: ALB/GLOB RATIO 0.8 (1.0-2.1); ALKALINE PHOSPHATASE 267 U/L (38-126); ALT/SGPT 56 U/L (21-72); AST/SGOT 36 U/L (17-59); BLOOD UREA NITROGEN 15 mg/dL (9-20); CALCIUM 9.3 mg/dl (8.6-10.4); GLUCOSE,RANDOM 170 mg/dL (75-110); TOTAL PROTEIN 8.6 g/dL (6.3-8.3)
[2017-07-26 07:30] LABS: BASO # 0.1 K/uL (0.0-0.2); BASO % 0.5 % (0.0-2.0); EOS # 0.2 K/uL (0.0-0.7); EOS % 1.2 % (0.0-4.0); HEMATOCRIT 37.9 % (35.0-51.0); LYMPH # 2.1 K/uL (1.0-4.3); LYMPH % 16.3 % (20.0-40.0); MEAN CELL VOLUME 85.6 fL (80.0-94.0); MEAN CORPUSCULAR HGB CONC 33.9 g/dL (33.0-37.0); MEAN PLATELET VOLUME 7.5 fL (7.2-11.7); MONO # 1.6 K/uL (0.0-0.8); NRBC % 0.1 % (0.0-2.0); RED CELL DISTRIBUTION WIDTH 13.5 % (11.5-14.5); WHITE BLOOD COUNT 13.1 K/uL (4.8-10.8)
--- NOTE | 2017-07-26 09:30 | CP.PCM.PN ---
Subjective - Date & Time of Evaluation Date of Evaluation: 07/26/17 Time of Evaluation: 09:15 - Subjective Subjective: Patient no complain; (+) itchy throat and dry cough. ID noted appreciated. NO CP, no SOB, no edema Objective - Vital Signs/Intake and Output Vital Signs (last 24 hours): Temp Pulse Resp BP Pulse Ox 98.0 F 100 H 20 133/85 95 07/26/17 08:29 07/26/17 08:29 07/26/17 08:29 07/26/17 08:29 07/26/17 08:29 - Medications Medications: Current Medications Acetaminophen (Tylenol 325mg Tab) 650 mg PO Q6H PRN PRN Reason: Fever >100.4 F Last Admin: 07/23/17 10:11 Dose: 650 mg Ethambutol HCl (Myambutol) 800 mg PO DAILY [facility] Last Admin: 07/25/17 09:19 Dose: 800 mg Isoniazid (Niazid) 300 mg PO DAILY [facility] Last Admin: 07/25/17 09:19 Dose: 300 mg Losartan Potassium (Cozaar) 50 mg PO DAILY [facility] Last Admin: 07/25/17 09:19 Dose: 50 mg Montelukast Sodium (Singulair) 10 mg PO [facility] Moxifloxacin HCl (Avelox) 400 mg PO DAILY [facility] Last Admin: 07/25/17 09:19 Dose: 400 mg Pyrazinamide (Pyrazinamide) 1,000 mg PO DAILY [facility] Last Admin: 07/25/17 09:19 Dose: 1,000 mg Pyridoxine HCl (Vitamin B6 50 Mg Tab) 50 mg PO DAILY [facility] Last Admin: 07/25/17 09:19 Dose: 50 mg Rifampin (Rifampin Cap) 600 mg PO DAILY [facility] Last Admin: 07/25/17 09:18 Dose: 600 mg - Labs Labs: 07/26/17 07:04 07/25/17 18:12 PT 13.8 SECONDS (9.7-12.2) H 07/19/17 12:59 INR 1.2 07/19/17 12:59 APTT 38 SECONDS (21-34) H 07/19/17 12:59 - Constitutional Appears: No Acute Distress - Eye Exam Eye Exam: Normal appearance - ENT Exam ENT Exam: Mucous Membranes Moist - Neck Exam Neck Exam: Full ROM. absent: Lymphadenopathy, Thyromegaly - Respiratory Exam Respiratory Exam: Decreased Breath Sounds, Wheezes. absent: Rales, Rhonchi - Cardiovascular Exam Cardiovascular Exam: REGULAR RHYTHM, +S1, +S2. absent: Gallop, JVD, Murmur - GI/Abdominal Exam GI & Abdominal Exam: Soft. absent: Tenderness, Mass - Extremities Exam Extremities Exam: Full ROM, Normal Capillary Refill. absent: Calf Tenderness, Joint Swelling, Pedal Edema Assessment and Plan - Assessment and Plan (Free Text) Assessment: PTB; HTN Need AFB x 3 before to stop isolation Cont meds Add Singulair
--- NOTE | 2017-07-26 17:34 | CP.PCM.PN ---
Subjective - Date & Time of Evaluation Date of Evaluation: 07/26/17 Time of Evaluation: 11:20 - Subjective Subjective: patient seen and examined no further hemoptysis feel much better On antituberculous medication Objective - Vital Signs/Intake and Output Vital Signs (last 24 hours): Temp Pulse Resp BP Pulse Ox 98.4 F 93 H 20 130/82 95 07/26/17 15:51 07/26/17 15:51 07/26/17 15:51 07/26/17 15:51 07/26/17 15:51 - Medications Medications: Current Medications Acetaminophen (Tylenol 325mg Tab) 650 mg PO Q6H PRN PRN Reason: Fever >100.4 F Last Admin: 07/23/17 10:11 Dose: 650 mg Ethambutol HCl (Myambutol) 1,200 mg PO DAILY [facility] Isoniazid (Niazid) 300 mg PO DAILY [facility] Last Admin: 07/26/17 10:00 Dose: 300 mg Losartan Potassium (Cozaar) 50 mg PO DAILY [facility] Last Admin: 07/26/17 10:00 Dose: 50 mg Montelukast Sodium (Singulair) 10 mg PO [facility] Moxifloxacin HCl (Avelox) 400 mg PO DAILY [facility] Last Admin: 07/26/17 10:00 Dose: 400 mg Pyrazinamide (Pyrazinamide) 1,500 mg PO DAILY [facility] Pyridoxine HCl (Vitamin B6 50 Mg Tab) 50 mg PO DAILY [facility] Last Admin: 07/26/17 10:00 Dose: 50 mg Rifampin (Rifampin Cap) 600 mg PO DAILY [facility] Last Admin: 07/26/17 10:00 Dose: 600 mg - Labs Labs: 07/26/17 07:04 07/25/17 18:12 PT 13.8 SECONDS (9.7-12.2) H 07/19/17 12:59 INR 1.2 07/19/17 12:59 APTT 38 SECONDS (21-34) H 07/19/17 12:59 - Head Exam Head Exam: ATRAUMATIC, NORMOCEPHALIC - Eye Exam Eye Exam: Normal appearance - ENT Exam ENT Exam: Mucous Membranes Moist - Neck Exam Neck Exam: Full ROM - Respiratory Exam Respiratory Exam: Clear to Ausculation Bilateral - Cardiovascular Exam Cardiovascular Exam: REGULAR RHYTHM - Extremities Exam Extremities Exam: Normal Inspection - Neurological Exam Neurological Exam: Alert Assessment and Plan (1) Tuberculosis Assessment & Plan: continue antituberculous medication Follow up AFB Followup chest x-ray Status: Acute (2) Hemoptysis Status: Acute
[2017-07-27 08:09] LABS: BASO % 0.4 % (0.0-2.0); EOS # 0.1 K/uL (0.0-0.7); EOS % 1.2 % (0.0-4.0); HEMATOCRIT 36.9 % (35.0-51.0); LYMPH # 1.2 K/uL (1.0-4.3); LYMPH % 10.6 % (20.0-40.0); MEAN CELL VOLUME 85.6 fL (80.0-94.0); MEAN CORPUSCULAR HGB CONC 33.9 g/dL (33.0-37.0); MEAN PLATELET VOLUME 7.2 fL (7.2-11.7); MONO # 1.5 K/uL (0.0-0.8); RED CELL DISTRIBUTION WIDTH 13.5 % (11.5-14.5); WHITE BLOOD COUNT 11.4 K/uL (4.8-10.8)
[2017-07-27 08:22] LABS: CHLORIDE 96 mmol/L (98-107)
[2017-07-27 08:23] LABS: POTASSIUM 4.1 mmol/L (3.6-5.2); SODIUM 132 mmol/L (132-148)
[2017-07-27 08:25] LABS: ALKALINE PHOSPHATASE 230 U/L (38-126); ALT/SGPT 53 U/L (21-72); AST/SGOT 40 U/L (17-59); BILIRUBIN,TOTAL 0.8 mg/dL (0.2-1.3); BLOOD UREA NITROGEN 15 mg/dL (9-20); CARBON DIOXIDE 23 mmol/L (22-30); GFR AFRICAN-AMERICAN > 60; GLUCOSE,RANDOM 116 mg/dL (75-110); TOTAL PROTEIN 7.8 g/dL (6.3-8.3); URIC ACID 9.2 mg/dL (3.5-8.5)
[2017-07-27 08:26] LABS: CALCIUM 8.8 mg/dl (8.6-10.4)
--- NOTE | 2017-07-27 08:40 | CP.PCM.PN ---
Subjective - Date & Time of Evaluation Date of Evaluation: 07/27/17 Time of Evaluation: 08:39 - Subjective Subjective: Pt no complain. No CP, no SOB, no edema, (+) dry cough most of the times. has sputum x 2nd today Objective - Vital Signs/Intake and Output Vital Signs (last 24 hours): Temp Pulse Resp BP Pulse Ox 97.7 F 94 H 20 126/83 95 07/27/17 07:59 07/27/17 07:59 07/27/17 07:59 07/27/17 07:59 07/27/17 07:59 Intake and Output: 07/27/17 07/27/17 06:59 18:59 Intake Total 800 Balance 800 - Medications Medications: Current Medications Acetaminophen (Tylenol 325mg Tab) 650 mg PO Q6H PRN PRN Reason: Fever >100.4 F Last Admin: 07/23/17 10:11 Dose: 650 mg Ethambutol HCl (Myambutol) 1,200 mg PO DAILY [facility] Isoniazid (Niazid) 300 mg PO DAILY [facility] Last Admin: 07/26/17 10:00 Dose: 300 mg Losartan Potassium (Cozaar) 50 mg PO DAILY [facility] Last Admin: 07/26/17 10:00 Dose: 50 mg Montelukast Sodium (Singulair) 10 mg PO HS [facility] Last Admin: 07/26/17 21:22 Dose: 10 mg Moxifloxacin HCl (Avelox) 400 mg PO DAILY [facility] Last Admin: 07/26/17 10:00 Dose: 400 mg Pyrazinamide (Pyrazinamide) 1,500 mg PO DAILY [facility] Pyridoxine HCl (Vitamin B6 50 Mg Tab) 50 mg PO DAILY [facility] Last Admin: 07/26/17 10:00 Dose: 50 mg Rifampin (Rifampin Cap) 600 mg PO DAILY [facility] Last Admin: 07/26/17 10:00 Dose: 600 mg - Labs Labs: 07/27/17 08:00 07/27/17 08:00 PT 13.8 SECONDS (9.7-12.2) H 07/19/17 12:59 INR 1.2 07/19/17 12:59 APTT 38 SECONDS (21-34) H 07/19/17 12:59 - Constitutional Appears: No Acute Distress - Eye Exam Eye Exam: Normal appearance - ENT Exam ENT Exam: Mucous Membranes Moist - Neck Exam Neck Exam: Full ROM. absent: Lymphadenopathy, Normal Inspection - Respiratory Exam Respiratory Exam: Decreased Breath Sounds, Wheezes. absent: Rales, Rhonchi - Cardiovascular Exam Cardiovascular Exam: +S1, +S2, Murmur. absent: Gallop, REGULAR RHYTHM, JVD - GI/Abdominal Exam GI & Abdominal Exam: Soft. absent: Tenderness, Mass - Extremities Exam Extremities Exam: Full ROM. absent: Calf Tenderness, Joint Swelling, Pedal Edema Assessment and Plan - Assessment and Plan (Free Text) Assessment: PTB, HTN Cont meds For AFB x3 before stopping isolation
--- NOTE | 2017-07-28 08:35 | CP.PCM.PN ---
Subjective - Date & Time of Evaluation Date of Evaluation: 07/29/17 Time of Evaluation: 08:20 - Subjective Subjective: Pt feels well. Walk 20 mins in the room. Feels much better, (+) no cough this morning No CP, no SOB, no edema, no n/v Objective - Vital Signs/Intake and Output Vital Signs (last 24 hours): Temp Pulse Resp BP Pulse Ox 97.4 F L 110 H 20 140/80 95 07/28/17 07:48 07/28/17 07:48 07/28/17 07:48 07/28/17 07:48 07/28/17 07:48 Intake and Output: 07/28/17 07/28/17 06:59 18:59 Intake Total 1000 Balance 1000 - Medications Medications: Current Medications Acetaminophen (Tylenol 325mg Tab) 650 mg PO Q6H PRN PRN Reason: Fever >100.4 F Last Admin: 07/23/17 10:11 Dose: 650 mg Ethambutol HCl (Myambutol) 1,200 mg PO DAILY [facility] Last Admin: 07/27/17 12:41 Dose: 1,200 mg Isoniazid (Niazid) 300 mg PO DAILY [facility] Last Admin: 07/27/17 09:50 Dose: 300 mg Losartan Potassium (Cozaar) 50 mg PO DAILY [facility] Last Admin: 07/27/17 09:50 Dose: 50 mg Montelukast Sodium (Singulair) 10 mg PO HS [facility] Last Admin: 07/27/17 21:03 Dose: 10 mg Moxifloxacin HCl (Avelox) 400 mg PO DAILY [facility] Last Admin: 07/27/17 09:49 Dose: 400 mg Pyrazinamide (Pyrazinamide) 1,500 mg PO DAILY [facility] Last Admin: 07/27/17 09:50 Dose: 1,500 mg Pyridoxine HCl (Vitamin B6) 50 mg PO DAILY [facility] Last Admin: 07/27/17 09:52 Dose: 50 mg Rifampin (Rifampin Cap) 600 mg PO DAILY [facility] Last Admin: 07/27/17 09:50 Dose: 600 mg - Labs Labs: 07/27/17 08:00 07/27/17 08:00 PT 13.8 SECONDS (9.7-12.2) H 07/19/17 12:59 INR 1.2 07/19/17 12:59 APTT 38 SECONDS (21-34) H 07/19/17 12:59 - Constitutional Appears: No Acute Distress - Eye Exam Eye Exam: Normal appearance - ENT Exam ENT Exam: Mucous Membranes Moist - Neck Exam Neck Exam: Full ROM. absent: Lymphadenopathy, Thyromegaly - Respiratory Exam Respiratory Exam: Decreased Breath Sounds, Wheezes. absent: Rales, Rhonchi - Cardiovascular Exam Cardiovascular Exam: REGULAR RHYTHM, +S1, +S2. absent: Gallop - GI/Abdominal Exam GI & Abdominal Exam: Soft. absent: Tenderness, Mass - Extremities Exam Extremities Exam: Joint Swelling. absent: Full ROM, Normal Capillary Refill, Pedal Edema Assessment and Plan - Assessment and Plan (Free Text) Assessment: HTN, PTB Inc Platelet ?? reactive Cont meds/ supportive care
--- NOTE | 2017-07-28 15:34 | CP.PCM.PN ---
Subjective - Date & Time of Evaluation Date of Evaluation: 07/28/17 Time of Evaluation: 10:00 - Subjective Subjective: Patient seen and examined. Denies cough, denies fevers chills, denies hemoptysis Being treated for tuberculosis Fair appetite Objective - Vital Signs/Intake and Output Vital Signs (last 24 hours): Temp Pulse Resp BP Pulse Ox 97.4 F L 110 H 20 140/80 95 07/28/17 07:48 07/28/17 07:48 07/28/17 07:48 07/28/17 07:48 07/28/17 07:48 Intake and Output: 07/28/17 07/28/17 06:59 18:59 Intake Total 1000 Balance 1000 - Medications Medications: Current Medications Acetaminophen (Tylenol 325mg Tab) 650 mg PO Q6H PRN PRN Reason: Fever >100.4 F Last Admin: 07/23/17 10:11 Dose: 650 mg Ethambutol HCl (Myambutol) 1,200 mg PO DAILY [facility] Last Admin: 07/28/17 09:19 Dose: 1,200 mg Isoniazid (Niazid) 300 mg PO DAILY [facility] Last Admin: 07/28/17 09:19 Dose: 300 mg Losartan Potassium (Cozaar) 50 mg PO DAILY [facility] Last Admin: 07/28/17 09:19 Dose: 50 mg Montelukast Sodium (Singulair) 10 mg PO HS [facility] Last Admin: 07/27/17 21:03 Dose: 10 mg Moxifloxacin HCl (Avelox) 400 mg PO DAILY [facility] Last Admin: 07/28/17 09:19 Dose: 400 mg Pyrazinamide (Pyrazinamide) 1,500 mg PO DAILY [facility] Last Admin: 07/28/17 09:18 Dose: 1,500 mg Pyridoxine HCl (Vitamin B6) 50 mg PO DAILY [facility] Last Admin: 07/28/17 09:18 Dose: 50 mg Rifampin (Rifampin Cap) 600 mg PO DAILY [facility] Last Admin: 07/28/17 09:19 Dose: 600 mg - Labs Labs: 07/27/17 08:00 07/27/17 08:00 PT 13.8 SECONDS (9.7-12.2) H 07/19/17 12:59 INR 1.2 07/19/17 12:59 APTT 38 SECONDS (21-34) H 07/19/17 12:59 - Constitutional Appears: No Acute Distress - Head Exam Head Exam: ATRAUMATIC, NORMOCEPHALIC - Eye Exam Eye Exam: Normal appearance - ENT Exam ENT Exam: Mucous Membranes Moist - Neck Exam Neck Exam: Full ROM, Normal Inspection - Respiratory Exam Respiratory Exam: Clear to Ausculation Bilateral - Cardiovascular Exam Cardiovascular Exam: REGULAR RHYTHM - GI/Abdominal Exam GI & Abdominal Exam: Soft, Normal Bowel Sounds - Extremities Exam Extremities Exam: Normal Inspection Assessment and Plan (1) Tuberculosis Assessment & Plan: Continue antituberculosis medication Follow-up culture and sensitivity Check sputum AFB 3 Status: Acute (2) Hemoptysis Status: Acute
--- NOTE | 2017-07-28 16:56 | CP.PCM.PN ---
Subjective - Date & Time of Evaluation Date of Evaluation: 07/28/17 Time of Evaluation: 09:00 - Subjective Subjective: Denies cough, denies fevers chills, denies hemoptysis Being treated for tuberculosis Objective - Vital Signs/Intake and Output Vital Signs (last 24 hours): Temp Pulse Resp BP Pulse Ox 98.1 F 99 H 20 131/78 95 07/28/17 15:43 07/28/17 15:43 07/28/17 15:43 07/28/17 15:43 07/28/17 15:43 Intake and Output: 07/28/17 07/28/17 06:59 18:59 Intake Total 1000 480 Balance 1000 480 - Medications Medications: Current Medications Acetaminophen (Tylenol 325mg Tab) 650 mg PO Q6H PRN PRN Reason: Fever >100.4 F Last Admin: 07/23/17 10:11 Dose: 650 mg Ethambutol HCl (Myambutol) 1,200 mg PO DAILY [facility] Last Admin: 07/28/17 09:19 Dose: 1,200 mg Isoniazid (Niazid) 300 mg PO DAILY [facility] Last Admin: 07/28/17 09:19 Dose: 300 mg Losartan Potassium (Cozaar) 50 mg PO DAILY [facility] Last Admin: 07/28/17 09:19 Dose: 50 mg Montelukast Sodium (Singulair) 10 mg PO HS [facility] Last Admin: 07/27/17 21:03 Dose: 10 mg Moxifloxacin HCl (Avelox) 400 mg PO DAILY [facility] Last Admin: 07/28/17 09:19 Dose: 400 mg Pyrazinamide (Pyrazinamide) 1,500 mg PO DAILY [facility] Last Admin: 07/28/17 09:18 Dose: 1,500 mg Pyridoxine HCl (Vitamin B6) 50 mg PO DAILY [facility] Last Admin: 07/28/17 09:18 Dose: 50 mg Rifampin (Rifampin Cap) 600 mg PO DAILY [facility] Last Admin: 07/28/17 09:19 Dose: 600 mg - Labs Labs: 07/27/17 08:00 07/27/17 08:00 PT 13.8 SECONDS (9.7-12.2) H 07/19/17 12:59 INR 1.2 07/19/17 12:59 APTT 38 SECONDS (21-34) H 07/19/17 12:59 - Constitutional Appears: Non-toxic, Chronically Ill - Head Exam Head Exam: NORMOCEPHALIC - Eye Exam Eye Exam: EOMI - ENT Exam ENT Exam: Mucous Membranes Dry - Neck Exam Neck Exam: absent: Lymphadenopathy - Respiratory Exam Respiratory Exam: Decreased Breath Sounds Assessment and Plan (1) Hemoptysis Status: Acute (2) Pneumonia Status: Acute (3) Tuberculosis Status: Acute (4) Tuberculosis Status: Acute
--- NOTE | 2017-07-29 08:26 | CP.PCM.PN ---
Subjective - Date & Time of Evaluation Date of Evaluation: 07/29/17 Time of Evaluation: 08:15 - Subjective Subjective: Pt no complain; ready to go home No CP, no cough, no edema, (+) minimal productive cough Objective - Vital Signs/Intake and Output Vital Signs (last 24 hours): Temp Pulse Resp BP Pulse Ox 97.9 F 112 H 20 118/81 97 07/29/17 07:36 07/29/17 07:36 07/29/17 07:36 07/29/17 07:36 07/29/17 07:36 - Medications Medications: Current Medications Acetaminophen (Tylenol 325mg Tab) 650 mg PO Q6H PRN PRN Reason: Fever >100.4 F Last Admin: 07/23/17 10:11 Dose: 650 mg Ethambutol HCl (Myambutol) 1,200 mg PO DAILY [facility] Last Admin: 07/28/17 09:19 Dose: 1,200 mg Isoniazid (Niazid) 300 mg PO DAILY [facility] Last Admin: 07/28/17 09:19 Dose: 300 mg Losartan Potassium (Cozaar) 50 mg PO DAILY [facility] Last Admin: 07/28/17 09:19 Dose: 50 mg Montelukast Sodium (Singulair) 10 mg PO [facility] Last Admin: 07/28/17 21:49 Dose: 10 mg Moxifloxacin HCl (Avelox) 400 mg PO DAILY [facility] Last Admin: 07/28/17 09:19 Dose: 400 mg Pyrazinamide (Pyrazinamide) 1,500 mg PO DAILY [facility] Last Admin: 07/28/17 09:18 Dose: 1,500 mg Pyridoxine HCl (Vitamin B6) 50 mg PO DAILY [facility] Last Admin: 07/28/17 09:18 Dose: 50 mg Rifampin (Rifampin Cap) 600 mg PO DAILY [facility] Last Admin: 07/28/17 09:19 Dose: 600 mg - Labs Labs: 07/27/17 08:00 07/27/17 08:00 PT 13.8 SECONDS (9.7-12.2) H 07/19/17 12:59 INR 1.2 07/19/17 12:59 APTT 38 SECONDS (21-34) H 07/19/17 12:59 - Constitutional Appears: No Acute Distress - Eye Exam Eye Exam: Normal appearance - ENT Exam ENT Exam: Mucous Membranes Moist - Neck Exam Neck Exam: Full ROM. absent: Lymphadenopathy, Thyromegaly - Respiratory Exam Respiratory Exam: Decreased Breath Sounds, Wheezes. absent: Rales, Rhonchi - Cardiovascular Exam Cardiovascular Exam: REGULAR RHYTHM, +S1, +S2. absent: Gallop, JVD, Murmur - GI/Abdominal Exam GI & Abdominal Exam: Soft. absent: Tenderness, Mass - Extremities Exam Extremities Exam: Full ROM, Normal Capillary Refill. absent: Calf Tenderness, Joint Swelling, Pedal Edema Assessment and Plan - Assessment and Plan (Free Text) Assessment: PTB w/ wheezing; HTN Cont meds/ Add advair Repeat CT F/up AFB; Negative x 1
--- NOTE | 2017-07-29 10:51 | RAD ---
HISTORY: () cavity COMPARISON: Chest radiograph 07/19/2017. TECHNIQUE: Chest PA and lateral, with apical lordotic views. FINDINGS: LUNGS: Persistent bilateral upper lobe infiltrates are appreciated potentially slightly increased at the right side when compared to prior chest 07/19/2017. Apical lordotic views demonstrate the infiltrates however no nodularity or fibrotic changes are definitively appreciated. A calcified granuloma is difficult to differentiate from a vessel on end at the right chest laterally. No calcified granuloma is seen at the left chest PLEURA: No significant pleural effusion identified. No pneumothorax apparent. CARDIOVASCULAR: Normal. OSSEOUS STRUCTURES: No significant abnormalities. VISUALIZED UPPER ABDOMEN: Normal. OTHER FINDINGS: None. IMPRESSION: Bilateral upper lobe infiltrates are identified including the apices, potentially a function of granulomatous infection though not definitively. Mild increase in infiltrate at the right chest may be present. Continued clinical and radiographic monitoring are advised.
[2017-07-29] MEDS: Fluticasone-Salmeterol 250-50mcg Diskus INH SCH (20:34)
[2017-07-30] MEDS: Fluticasone-Salmeterol 250-50mcg Diskus INH SCH ×2 (07:21→20:44)
--- NOTE | 2017-07-30 08:05 | CP.PCM.PN ---
Subjective - Date & Time of Evaluation Date of Evaluation: 07/30/17 Time of Evaluation: 07:45 - Subjective Subjective: Patient no complain; good appetite, no fever, bladimir dec cough. AFB (+) on 07/27/17 No CP, no SOB, no edema, no n/v, no diarrhea Objective - Vital Signs/Intake and Output Vital Signs (last 24 hours): Temp Pulse Resp BP Pulse Ox 97.9 F 86 20 106/64 95 07/29/17 23:30 07/29/17 23:30 07/29/17 23:30 07/29/17 23:30 07/29/17 23:30 Intake and Output: 07/30/17 07/30/17 06:59 18:59 Intake Total 150 Balance 150 - Medications Medications: Current Medications Ethambutol HCl (Myambutol) 1,200 mg PO DAILY [facility] Last Admin: 07/29/17 09:04 Dose: 1,200 mg Isoniazid (Niazid) 300 mg PO DAILY [facility] Last Admin: 07/29/17 09:04 Dose: 300 mg Losartan Potassium (Cozaar) 50 mg PO DAILY [facility] Last Admin: 07/29/17 09:04 Dose: 50 mg Montelukast Sodium (Singulair) 10 mg PO HS [facility] Last Admin: 07/29/17 21:19 Dose: 10 mg Moxifloxacin HCl (Avelox) 400 mg PO DAILY [facility] Last Admin: 07/29/17 09:04 Dose: 400 mg Pyrazinamide (Pyrazinamide) 1,500 mg PO DAILY [facility] Last Admin: 07/29/17 09:04 Dose: 1,500 mg Pyridoxine HCl (Vitamin B6 50 Mg Tab) 50 mg PO DAILY [facility] Rifampin (Rifampin Cap) 600 mg PO DAILY [facility] Last Admin: 07/29/17 09:04 Dose: 600 mg Fluticasone/Salmeterol (Advair Diskus 250/50) 1 puff INH RQ12 [facility] Last Admin: 07/30/17 07:21 Dose: 1 puff - Labs Labs: 07/27/17 08:00 07/27/17 08:00 PT 13.8 SECONDS (9.7-12.2) H 07/19/17 12:59 INR 1.2 07/19/17 12:59 APTT 38 SECONDS (21-34) H 07/19/17 12:59 - Head Exam Head Exam: NORMAL INSPECTION - Eye Exam Eye Exam: Normal appearance - ENT Exam ENT Exam: Mucous Membranes Moist - Neck Exam Neck Exam: Full ROM. absent: Lymphadenopathy - Respiratory Exam Respiratory Exam: Clear to Ausculation Bilateral. absent: Rales, Rhonchi, Wheezes - Cardiovascular Exam Cardiovascular Exam: REGULAR RHYTHM, +S1, +S2. absent: Gallop, JVD, Murmur - GI/Abdominal Exam GI & Abdominal Exam: Soft. absent: Tenderness, Mass - Extremities Exam Extremities Exam: Full ROM. absent: Calf Tenderness, Normal Capillary Refill, Pedal Edema Assessment and Plan - Assessment and Plan (Free Text) Assessment: HTN; prob PTB w/ wheezing CXR and AFB noted cont meds Pt mathews aware c/o still need to be isolated
[2017-07-31] MEDS: Fluticasone-Salmeterol 250-50mcg Diskus INH SCH ×2 (10:04→20:08)
[2017-08-01] MEDS: Fluticasone-Salmeterol 250-50mcg Diskus INH SCH ×2 (10:13→20:46)
--- NOTE | 2017-08-02 08:32 | CP.PCM.PN ---
Subjective - Date & Time of Evaluation Date of Evaluation: 08/02/17 Time of Evaluation: 08:15 - Subjective Subjective: Pt no complain; no CP, no SOB, (+) dry cough Objective - Vital Signs/Intake and Output Vital Signs (last 24 hours): Temp Pulse Resp BP Pulse Ox 98.3 F 77 20 117/70 95 08/02/17 00:00 08/02/17 00:00 08/02/17 00:00 08/02/17 00:00 08/02/17 00:00 Intake and Output: 08/02/17 08/02/17 06:59 18:59 Intake Total 600 Balance 600 - Medications Medications: Current Medications Ethambutol HCl (Myambutol) 1,200 mg PO DAILY [facility] Last Admin: 08/01/17 09:58 Dose: 1,200 mg Isoniazid (Niazid) 300 mg PO DAILY [facility] Last Admin: 08/01/17 09:59 Dose: 300 mg Losartan Potassium (Cozaar) 50 mg PO DAILY [facility] Last Admin: 08/01/17 09:59 Dose: 50 mg Montelukast Sodium (Singulair) 10 mg PO HS [facility] Last Admin: 08/01/17 21:47 Dose: 10 mg Moxifloxacin HCl (Avelox) 400 mg PO DAILY [facility] Last Admin: 08/01/17 09:59 Dose: 400 mg Pyrazinamide (Pyrazinamide) 1,500 mg PO DAILY [facility] Last Admin: 08/01/17 09:58 Dose: 1,500 mg Pyridoxine HCl (Vitamin B6 50 Mg Tab) 50 mg PO DAILY [facility] Last Admin: 08/01/17 09:58 Dose: 50 mg Rifampin (Rifampin Cap) 600 mg PO DAILY [facility] Last Admin: 08/01/17 09:59 Dose: 600 mg Fluticasone/Salmeterol (Advair Diskus 250/50) 1 puff INH RQ12 [facility] Last Admin: 08/01/17 20:46 Dose: 1 puff - Labs Labs: 07/27/17 08:00 07/27/17 08:00 PT 13.8 SECONDS (9.7-12.2) H 07/19/17 12:59 INR 1.2 07/19/17 12:59 APTT 38 SECONDS (21-34) H 07/19/17 12:59 - Constitutional Appears: No Acute Distress - Eye Exam Eye Exam: Normal appearance - ENT Exam ENT Exam: Mucous Membranes Moist - Neck Exam Neck Exam: Full ROM - Respiratory Exam Respiratory Exam: Clear to Ausculation Bilateral. absent: Rales, Rhonchi, Wheezes - Cardiovascular Exam Cardiovascular Exam: REGULAR RHYTHM, RRR, +S1, +S2. absent: Gallop, JVD - GI/Abdominal Exam GI & Abdominal Exam: Soft. absent: Tenderness - Extremities Exam Extremities Exam: Full ROM, Normal Capillary Refill. absent: Joint Swelling, Pedal Edema Assessment and Plan - Assessment and Plan (Free Text) Plan: Pneumonia w/ PTB HTN Cont meds Avelox x 14 days Repeat AFB
[2017-08-02] MEDS: Fluticasone-Salmeterol 250-50mcg Diskus INH SCH ×2 (10:34→20:32)
[2017-08-03 07:43] LABS: BASO # 0.1 K/uL (0.0-0.2); BASO % 0.8 % (0.0-2.0); EOS # 0.1 K/uL (0.0-0.7); EOS % 1.5 % (0.0-4.0); HEMATOCRIT 37.4 % (35.0-51.0); MEAN CELL VOLUME 87.2 fL (80.0-94.0); MEAN CORPUSCULAR HGB CONC 34.3 g/dL (33.0-37.0); MEAN PLATELET VOLUME 6.8 fL (7.2-11.7); MONO # 0.8 K/uL (0.0-0.8); MONO % 8.2 % (0.0-10.0); NRBC % 0.1 % (0.0-2.0); RED CELL DISTRIBUTION WIDTH 14.4 % (11.5-14.5); WHITE BLOOD COUNT 9.9 K/uL (4.8-10.8)
[2017-08-03 07:44] LABS: CHLORIDE 100 mmol/L (98-107)
[2017-08-03 07:45] LABS: POTASSIUM 3.9 mmol/L (3.6-5.2); SODIUM 135 mmol/L (132-148)
[2017-08-03 07:47] LABS: CARBON DIOXIDE 23 mmol/L (22-30); GFR AFRICAN-AMERICAN > 60
[2017-08-03 07:48] LABS: ALB/GLOB RATIO 1.1 (1.0-2.1); ALKALINE PHOSPHATASE 152 U/L (38-126); ALT/SGPT 53 U/L (21-72); AST/SGOT 59 U/L (17-59); BILIRUBIN,TOTAL 0.7 mg/dL (0.2-1.3); BLOOD UREA NITROGEN 19 mg/dL (9-20); GLUCOSE,RANDOM 120 mg/dL (75-110); TOTAL PROTEIN 7.8 g/dL (6.3-8.3)
[2017-08-03 07:49] LABS: CALCIUM 8.9 mg/dl (8.6-10.4)
[2017-08-03] MEDS: Fluticasone-Salmeterol 250-50mcg Diskus INH SCH ×2 (08:00→20:50)
--- NOTE | 2017-08-03 10:07 | CP.PCM.PN ---
Subjective - Date & Time of Evaluation Date of Evaluation: 08/03/17 Time of Evaluation: 10:08 - Subjective Subjective: Patient no complain; minimal mucus in AM NO CP, no SOB, no edema, no n/v; good appetite Doing upper body exercise in his room Objective - Vital Signs/Intake and Output Vital Signs (last 24 hours): Temp Pulse Resp BP Pulse Ox 98.1 F 109 H 20 122/69 96 08/03/17 08:00 08/03/17 08:00 08/03/17 08:00 08/03/17 08:00 08/03/17 08:00 Intake and Output: 08/03/17 08/03/17 06:59 18:59 Intake Total 50 Balance 50 - Medications Medications: Current Medications Ethambutol HCl (Myambutol) 1,200 mg PO DAILY [facility] Last Admin: 08/03/17 09:19 Dose: 1,200 mg Isoniazid (Niazid) 300 mg PO DAILY [facility] Last Admin: 08/03/17 09:20 Dose: 300 mg Losartan Potassium (Cozaar) 50 mg PO DAILY [facility] Last Admin: 08/03/17 09:19 Dose: 50 mg Montelukast Sodium (Singulair) 10 mg PO HS [facility] Last Admin: 08/02/17 21:12 Dose: 10 mg Moxifloxacin HCl (Avelox) 400 mg PO DAILY [facility] Last Admin: 08/03/17 09:19 Dose: 400 mg Pyrazinamide (Pyrazinamide) 1,500 mg PO DAILY [facility] Last Admin: 08/03/17 09:20 Dose: 1,500 mg Pyridoxine HCl (Vitamin B6 50 Mg Tab) 50 mg PO DAILY [facility] Last Admin: 08/03/17 09:20 Dose: 50 mg Rifampin (Rifampin Cap) 600 mg PO DAILY [facility] Last Admin: 08/03/17 09:21 Dose: 600 mg Fluticasone/Salmeterol (Advair Diskus 250/50) 1 puff INH RQ12 [facility] Last Admin: 08/03/17 08:00 Dose: 1 puff - Labs Labs: 08/03/17 07:26 08/03/17 07:26 PT 13.8 SECONDS (9.7-12.2) H 07/19/17 12:59 INR 1.2 07/19/17 12:59 APTT 38 SECONDS (21-34) H 07/19/17 12:59 - Constitutional Appears: No Acute Distress - Eye Exam Eye Exam: Normal appearance - ENT Exam ENT Exam: Mucous Membranes Moist - Neck Exam Neck Exam: Full ROM - Respiratory Exam Respiratory Exam: Decreased Breath Sounds, Rhonchi. absent: Rales, Wheezes - Cardiovascular Exam Cardiovascular Exam: REGULAR RHYTHM, +S1, +S2. absent: Gallop, JVD - GI/Abdominal Exam GI & Abdominal Exam: Soft. absent: Tenderness, Mass - Extremities Exam Extremities Exam: Normal Capillary Refill. absent: Calf Tenderness, Joint Swelling, Pedal Edema Assessment and Plan - Assessment and Plan (Free Text) Assessment: PTB; Pneumonia HTN For AFB x 3 again Cont meds
[2017-08-04] MEDS: Fluticasone-Salmeterol 250-50mcg Diskus INH SCH ×2 (07:22→20:46)
[2017-08-05] MEDS: Fluticasone-Salmeterol 250-50mcg Diskus INH SCH ×2 (07:28→20:01)
--- NOTE | 2017-08-05 08:30 | CP.PCM.PN ---
Subjective - Date & Time of Evaluation Date of Evaluation: 08/04/17 Time of Evaluation: 08:15 - Subjective Subjective: Pt no complain; Very minimal cough No CP, no SOB, no edema, no palpitation, no n/v Objective - Vital Signs/Intake and Output Vital Signs (last 24 hours): Temp Pulse Resp BP Pulse Ox 98.3 F 108 H 20 113/80 95 08/05/17 07:04 08/05/17 07:04 08/05/17 07:04 08/05/17 07:04 08/05/17 07:04 - Medications Medications: Current Medications Ethambutol HCl (Myambutol) 1,200 mg PO DAILY [facility] Last Admin: 08/04/17 09:31 Dose: 1,200 mg Isoniazid (Niazid) 300 mg PO DAILY [facility] Last Admin: 08/04/17 09:31 Dose: 300 mg Losartan Potassium (Cozaar) 50 mg PO DAILY [facility] Last Admin: 08/04/17 09:31 Dose: 50 mg Montelukast Sodium (Singulair) 10 mg PO [facility] Last Admin: 08/04/17 21:08 Dose: 10 mg Moxifloxacin HCl (Avelox) 400 mg PO DAILY [facility] Last Admin: 08/04/17 09:31 Dose: 400 mg Pyrazinamide (Pyrazinamide) 1,500 mg PO DAILY [facility] Last Admin: 08/04/17 09:31 Dose: 1,500 mg Pyridoxine HCl (Vitamin B6 50 Mg Tab) 50 mg PO DAILY [facility] Last Admin: 08/04/17 09:32 Dose: 50 mg Rifampin (Rifampin Cap) 600 mg PO DAILY [facility] Last Admin: 08/04/17 09:31 Dose: 600 mg Fluticasone/Salmeterol (Advair Diskus 250/50) 1 puff INH RQ12 [facility] Last Admin: 08/05/17 07:28 Dose: 1 puff - Labs Labs: 08/03/17 07:26 08/03/17 07:26 PT 13.8 SECONDS (9.7-12.2) H 07/19/17 12:59 INR 1.2 07/19/17 12:59 APTT 38 SECONDS (21-34) H 07/19/17 12:59 - Constitutional Appears: No Acute Distress - Eye Exam Eye Exam: Normal appearance - ENT Exam ENT Exam: Mucous Membranes Moist - Neck Exam Neck Exam: Full ROM. absent: Lymphadenopathy, Thyromegaly - Respiratory Exam Respiratory Exam: Clear to Ausculation Bilateral. absent: Rales, Rhonchi, Wheezes - GI/Abdominal Exam GI & Abdominal Exam: Soft. absent: Tenderness, Mass - Extremities Exam Extremities Exam: Full ROM, Normal Capillary Refill. absent: Calf Tenderness, Joint Swelling Assessment and Plan - Assessment and Plan (Free Text) Assessment: Pneumonia; PTB - improve HTN AFB neg x1; Need 3 for discharge Cont meds
[2017-08-06] MEDS: Fluticasone-Salmeterol 250-50mcg Diskus INH SCH ×2 (08:17→19:46)
--- NOTE | 2017-08-06 08:21 | CP.PCM.PN ---
Subjective - Date & Time of Evaluation Date of Evaluation: 08/06/17 Time of Evaluation: 08:10 - Subjective Subjective: Pt minimal cough; AFB neg x1; 2 more collected. NO CP, no SOB, no edema, no palpitation, no n/v Objective - Vital Signs/Intake and Output Vital Signs (last 24 hours): Temp Pulse Resp BP Pulse Ox 98 F 115 H 21 100/72 96 08/06/17 07:59 08/06/17 07:59 08/06/17 07:59 08/06/17 07:59 08/06/17 07:59 Intake and Output: 08/06/17 08/06/17 06:59 18:59 Intake Total 150 Balance 150 - Medications Medications: Current Medications Ethambutol HCl (Myambutol) 1,200 mg PO DAILY [facility] Last Admin: 08/05/17 09:47 Dose: 1,200 mg Isoniazid (Niazid) 300 mg PO DAILY [facility] Last Admin: 08/05/17 09:48 Dose: 300 mg Losartan Potassium (Cozaar) 50 mg PO DAILY [facility] Last Admin: 08/05/17 09:47 Dose: 50 mg Montelukast Sodium (Singulair) 10 mg PO HS [facility] Last Admin: 08/05/17 22:52 Dose: 10 mg Moxifloxacin HCl (Avelox) 400 mg PO DAILY [facility] Last Admin: 08/05/17 09:48 Dose: 400 mg Pyrazinamide (Pyrazinamide) 1,500 mg PO DAILY [facility] Last Admin: 08/05/17 09:48 Dose: 1,500 mg Pyridoxine HCl (Vitamin B6 50 Mg Tab) 50 mg PO DAILY [facility] Last Admin: 08/05/17 09:49 Dose: 50 mg Rifampin (Rifampin Cap) 600 mg PO DAILY [facility] Last Admin: 08/05/17 09:48 Dose: 600 mg Fluticasone/Salmeterol (Advair Diskus 250/50) 1 puff INH RQ12 [facility] Last Admin: 08/06/17 08:17 Dose: 1 puff - Labs Labs: 08/03/17 07:26 08/03/17 07:26 PT 13.8 SECONDS (9.7-12.2) H 07/19/17 12:59 INR 1.2 07/19/17 12:59 APTT 38 SECONDS (21-34) H 07/19/17 12:59 - Constitutional Appears: No Acute Distress - Eye Exam Eye Exam: Normal appearance - Neck Exam Neck Exam: Full ROM. absent: Normal Inspection, Tenderness - Respiratory Exam Respiratory Exam: Wheezes. absent: Decreased Breath Sounds, Rales, Rhonchi - Cardiovascular Exam Cardiovascular Exam: +S1, +S2. absent: Gallop, REGULAR RHYTHM, JVD - GI/Abdominal Exam GI & Abdominal Exam: Soft. absent: Tenderness, Mass - Extremities Exam Extremities Exam: absent: Full ROM, Normal Capillary Refill, Pedal Edema Assessment and Plan - Assessment and Plan (Free Text) Assessment: Pneumonia; PTB\ HTN; Tachycardia ?? Etio Cont meds/ supprtive care For repeat CT
--- NOTE | 2017-08-06 09:47 | CT ---
PROCEDURE: CT Chest without contrast HISTORY: F/up CT ?? mass COMPARISON: Chest CT with contrast 07/19/2017. TECHNIQUE: Contiguous axial images were obtained through the chest without intravenous contrast enhancement. Sagittal and coronal reconstructions were performed. Radiation dose (DLP): 281.27 mGy-cm. This CT exam was performed using one or more of the following dose reduction techniques: Automated exposure control, adjustment of the mA and/or kV according to patient size, and/or use of iterative reconstruction technique. FINDINGS: LUNGS: A cavitary mass at the root right apex appears increased in size measuring 4.1 x 6.0 cm with increasing opacification and diminishing air-filled cavity identified. Subcentimeter satellite nodules are seen associated with this focus once again with additional nodular infiltrate infiltrates identified at the left apex and superior segments of the bilateral lower lobes, not significantly changed in the interval. A broad differential diagnosis remains very firm tumor two inflammatory causes and infection including granulomatous disease. Calcifications are associated with a few of these nodules particularly at the left lung raising the possibility of granulomatous disease however there is only limited mediastinal lymphadenopathy including a diminishing precarinal lymph node measuring 2.0 x 1.2 cm and a stable 2.0 x 0.9 cm subcarinal lymph node. MEDIASTINUM: Unremarkable thoracic aorta. No aneurysm. Normal sized heart. Main pulmonary artery unremarkable. No vascular congestion. Lymph nodes described above. PLEURA: No pleural fluid. No pneumothorax. BONES: No fracture. No destructive lesion. UPPER ABDOMEN: Cholelithiasis at is again identified within a contracted gallbladder, with a porcelain gallbladder a possibility. OTHER FINDINGS: None. IMPRESSION: Bilateral upper lobe and superior segment masses and reticular infiltrates are appreciated once again with the dominant lesion at the right apex increasing in size to 4.1 x 6.0 cm with diminishing cavitation. Occasional calcifications are space with left-sided nodules once again. Although this is not necessarily definitive for neoplasm, neoplasm is clearly not been excluded and may have increased in likelihood of other differential diagnostic possibilities including granulomatous disease or other infectious processes, or inflammatory processes. Further clinical correlation is advised.
--- NOTE | 2017-08-07 12:50 | CP.PCM.PN ---
Subjective - Date & Time of Evaluation Date of Evaluation: 08/07/17 Time of Evaluation: 09:20 - Subjective Subjective: patient seen and examined lying comfortably in no acute distress Denies cough, denies hemoptysis, denies fever chills Clinically improving Good appetite CAT scan of the chest consistent with increase size off right upper lung mass with decreased cavitation Continue antituberculosis medicine Sputum AFB Objective - Vital Signs/Intake and Output Vital Signs (last 24 hours): Temp Pulse Resp BP Pulse Ox 98.3 F 115 H 20 115/73 96 08/07/17 08:02 08/07/17 08:02 08/07/17 08:02 08/07/17 08:02 08/07/17 08:02 Intake and Output: 08/07/17 08/07/17 06:59 18:59 Intake Total 1150 Balance 1150 - Medications Medications: Current Medications Ethambutol HCl (Myambutol) 1,200 mg PO DAILY [facility] Last Admin: 08/07/17 09:14 Dose: 1,200 mg Isoniazid (Niazid) 300 mg PO DAILY [facility] Last Admin: 08/07/17 09:14 Dose: 300 mg Losartan Potassium (Cozaar) 50 mg PO DAILY [facility] Last Admin: 08/07/17 09:15 Dose: 50 mg Montelukast Sodium (Singulair) 10 mg PO HS [facility] Last Admin: 08/06/17 21:22 Dose: 10 mg Pyrazinamide (Pyrazinamide) 1,500 mg PO DAILY [facility] Last Admin: 08/07/17 09:14 Dose: 1,500 mg Pyridoxine HCl (Vitamin B6 50 Mg Tab) 50 mg PO DAILY [facility] Last Admin: 08/07/17 09:15 Dose: 50 mg Rifampin (Rifampin Cap) 600 mg PO DAILY [facility] Last Admin: 08/07/17 09:15 Dose: 600 mg Fluticasone/Salmeterol (Advair Diskus 250/50) 1 puff INH RQ12 [facility] Last Admin: 08/06/17 19:46 Dose: 1 puff - Labs Labs: 08/03/17 07:26 08/03/17 07:26 PT 13.8 SECONDS (9.7-12.2) H 07/19/17 12:59 INR 1.2 07/19/17 12:59 APTT 38 SECONDS (21-34) H 07/19/17 12:59 Assessment and Plan (1) Tuberculosis Status: Acute (2) Hemoptysis Status: Acute
--- NOTE | 2017-08-07 14:33 | CP.PCM.PN ---
Subjective - Date & Time of Evaluation Date of Evaluation: 08/07/17 Time of Evaluation: 02:09 - Subjective Subjective: Pt complain and eager to go home. (+) AFB 2+ positive again. No CP, no SOB, no n/v, no diarrhea. Appetite is good CT scan reviewed and has inc mass despite clinical improvement. Also ?? why persistent (+) AFB Objective - Vital Signs/Intake and Output Vital Signs (last 24 hours): Temp Pulse Resp BP Pulse Ox 98.3 F 115 H 20 115/73 96 08/07/17 08:02 08/07/17 08:02 08/07/17 08:02 08/07/17 08:02 08/07/17 08:02 Intake and Output: 08/07/17 08/07/17 06:59 18:59 Intake Total 1150 Balance 1150 - Medications Medications: Current Medications Ethambutol HCl (Myambutol) 1,200 mg PO DAILY [facility] Last Admin: 08/07/17 09:14 Dose: 1,200 mg Isoniazid (Niazid) 300 mg PO DAILY [facility] Last Admin: 08/07/17 09:14 Dose: 300 mg Losartan Potassium (Cozaar) 50 mg PO DAILY [facility] Last Admin: 08/07/17 09:15 Dose: 50 mg Montelukast Sodium (Singulair) 10 mg PO HS [facility] Last Admin: 08/06/17 21:22 Dose: 10 mg Pyrazinamide (Pyrazinamide) 1,500 mg PO DAILY [facility] Last Admin: 08/07/17 09:14 Dose: 1,500 mg Pyridoxine HCl (Vitamin B6 50 Mg Tab) 50 mg PO DAILY [facility] Last Admin: 08/07/17 09:15 Dose: 50 mg Rifampin (Rifampin Cap) 600 mg PO DAILY [facility] Last Admin: 08/07/17 09:15 Dose: 600 mg Fluticasone/Salmeterol (Advair Diskus 250/50) 1 puff INH RQ12 [facility] Last Admin: 08/06/17 19:46 Dose: 1 puff - Labs Labs: 08/03/17 07:26 08/03/17 07:26 PT 13.8 SECONDS (9.7-12.2) H 07/19/17 12:59 INR 1.2 07/19/17 12:59 APTT 38 SECONDS (21-34) H 07/19/17 12:59 - Constitutional Appears: No Acute Distress - Eye Exam Eye Exam: Normal appearance - ENT Exam ENT Exam: Mucous Membranes Moist - Neck Exam Neck Exam: Full ROM. absent: Lymphadenopathy, Meningismus - Respiratory Exam Respiratory Exam: Clear to Ausculation Bilateral. absent: Rales, Rhonchi, Wheezes - Cardiovascular Exam Cardiovascular Exam: +S1, +S2, Murmur. absent: Gallop, REGULAR RHYTHM - GI/Abdominal Exam GI & Abdominal Exam: Soft. absent: Tenderness, Mass - Extremities Exam Extremities Exam: Calf Tenderness, Normal Capillary Refill. absent: Full ROM, Joint Swelling, Pedal Edema Assessment and Plan - Assessment and Plan (Free Text) Assessment: Tachycardia ? etio PTB, HtN w inc size of mass Pulmonary note reviewed and appreciated Continue meds
[2017-08-08] MEDS: Fluticasone-Salmeterol 250-50mcg Diskus INH SCH ×2 (07:31→20:36)
[2017-08-08 07:44] LABS: HEMATOCRIT 38.9 % (35.0-51.0); MEAN CELL VOLUME 87.4 fL (80.0-94.0); MEAN CORPUSCULAR HEMOGLOBIN 28.7 pg (27.0-31.0); MEAN CORPUSCULAR HGB CONC 32.9 g/dL (33.0-37.0); MEAN PLATELET VOLUME 6.8 fL (7.2-11.7); RED CELL DISTRIBUTION WIDTH 14.9 % (11.5-14.5)
[2017-08-08 08:03] LABS: ALB/GLOB RATIO 1.1 (1.0-2.1); ALKALINE PHOSPHATASE 125 U/L (38-126); ALT/SGPT 45 U/L (21-72); AST/SGOT 37 U/L (17-59); BILIRUBIN,TOTAL 0.6 mg/dL (0.2-1.3); BLOOD UREA NITROGEN 14 mg/dL (9-20); CALCIUM 8.6 mg/dl (8.6-10.4); CARBON DIOXIDE 22 mmol/L (22-30); CHLORIDE 101 mmol/L (98-107); GFR AFRICAN-AMERICAN > 60; GLUCOSE,RANDOM 108 mg/dL (75-110); SODIUM 134 mmol/L (132-148); TOTAL PROTEIN 7.7 g/dL (6.3-8.3)
[2017-08-09] MEDS: Fluticasone-Salmeterol 250-50mcg Diskus INH SCH ×2 (07:44→19:52)
--- NOTE | 2017-08-09 08:27 | CP.PCM.PN ---
Subjective - Date & Time of Evaluation Date of Evaluation: 08/09/17 Time of Evaluation: 08:20 - Subjective Subjective: Pt no complain; no CP, no SOB, no palpitation, no edema. NO n/v, no diarrhea, o urinaty complain ? right upper lobe mass Objective - Vital Signs/Intake and Output Vital Signs (last 24 hours): Temp Pulse Resp BP Pulse Ox 97.9 F 93 H 20 119/82 96 08/09/17 07:50 08/09/17 07:50 08/09/17 07:50 08/09/17 07:50 08/09/17 07:50 Intake and Output: 08/09/17 08/09/17 06:59 18:59 Intake Total 150 Balance 150 - Medications Medications: Current Medications Ethambutol HCl (Myambutol) 1,200 mg PO DAILY [facility] Last Admin: 08/08/17 09:03 Dose: 1,200 mg Isoniazid (Niazid) 300 mg PO DAILY [facility] Last Admin: 08/08/17 09:04 Dose: 300 mg Losartan Potassium (Cozaar) 50 mg PO DAILY [facility] Last Admin: 08/08/17 09:04 Dose: 50 mg Montelukast Sodium (Singulair) 10 mg PO HS [facility] Last Admin: 08/08/17 21:23 Dose: 10 mg Pyrazinamide (Pyrazinamide) 1,500 mg PO DAILY [facility] Last Admin: 08/08/17 09:04 Dose: 1,500 mg Pyridoxine HCl (Vitamin B6 50 Mg Tab) 50 mg PO DAILY [facility] Last Admin: 08/08/17 09:04 Dose: 50 mg Rifampin (Rifampin Cap) 600 mg PO DAILY [facility] Last Admin: 08/08/17 09:04 Dose: 600 mg Fluticasone/Salmeterol (Advair Diskus 250/50) 1 puff INH RQ12 [facility] Last Admin: 08/09/17 07:44 Dose: 1 puff - Labs Labs: 08/08/17 07:29 08/08/17 07:29 PT 13.8 SECONDS (9.7-12.2) H 07/19/17 12:59 INR 1.2 07/19/17 12:59 APTT 38 SECONDS (21-34) H 07/19/17 12:59 - Head Exam Head Exam: NORMAL INSPECTION - ENT Exam ENT Exam: Mucous Membranes Moist - Neck Exam Neck Exam: Full ROM. absent: Lymphadenopathy, Tenderness - Respiratory Exam Respiratory Exam: Decreased Breath Sounds. absent: Rales, Rhonchi, Wheezes - Cardiovascular Exam Cardiovascular Exam: REGULAR RHYTHM, +S1, +S2. absent: Gallop, JVD, Murmur - GI/Abdominal Exam GI & Abdominal Exam: Soft. absent: Tenderness, Mass - Extremities Exam Extremities Exam: Full ROM, Normal Capillary Refill. absent: Calf Tenderness, Joint Swelling, Pedal Edema Assessment and Plan - Assessment and Plan (Free Text) Assessment: Pulm mass; PTB HTN Fo repeat AFB x 2 befoe isolation Cont meds
[2017-08-10] MEDS: Fluticasone-Salmeterol 250-50mcg Diskus INH SCH ×2 (07:59→20:55)
--- NOTE | 2017-08-10 08:59 | CP.PCM.PN ---
Subjective - Date & Time of Evaluation Date of Evaluation: 08/10/17 Time of Evaluation: 08:37 - Subjective Subjective: Pt feels well; cough is loose if any; very minimal mucus No CP, no SOB, no n/v,no diarrhea Objective - Vital Signs/Intake and Output Vital Signs (last 24 hours): Temp Pulse Resp BP Pulse Ox 98.3 F 94 H 20 120/82 100 08/10/17 08:30 08/10/17 08:30 08/10/17 08:30 08/10/17 08:30 08/10/17 08:30 Intake and Output: 08/10/17 08/10/17 06:59 18:59 Intake Total 1000 Balance 1000 - Medications Medications: Current Medications Ethambutol HCl (Myambutol) 1,200 mg PO DAILY [facility] Last Admin: 08/09/17 09:41 Dose: 1,200 mg Isoniazid (Niazid) 300 mg PO DAILY [facility] Last Admin: 08/09/17 09:41 Dose: 300 mg Losartan Potassium (Cozaar) 50 mg PO DAILY [facility] Last Admin: 08/09/17 09:41 Dose: 50 mg Montelukast Sodium (Singulair) 10 mg PO HS [facility] Last Admin: 08/09/17 21:20 Dose: 10 mg Pyrazinamide (Pyrazinamide) 1,500 mg PO DAILY [facility] Last Admin: 08/09/17 09:41 Dose: 1,500 mg Pyridoxine HCl (Vitamin B6 50 Mg Tab) 50 mg PO DAILY [facility] Last Admin: 08/09/17 09:41 Dose: 50 mg Rifampin (Rifampin Cap) 600 mg PO DAILY [facility] Last Admin: 08/09/17 09:41 Dose: 600 mg Fluticasone/Salmeterol (Advair Diskus 250/50) 1 puff INH RQ12 [facility] Last Admin: 08/10/17 07:59 Dose: 1 puff - Labs Labs: 08/08/17 07:29 08/08/17 07:29 PT 13.8 SECONDS (9.7-12.2) H 07/19/17 12:59 INR 1.2 07/19/17 12:59 APTT 38 SECONDS (21-34) H 07/19/17 12:59 - Head Exam Head Exam: NORMAL INSPECTION - Eye Exam Eye Exam: Normal appearance - ENT Exam ENT Exam: Mucous Membranes Moist - Neck Exam Neck Exam: Full ROM. absent: Lymphadenopathy, Normal Inspection - Respiratory Exam Respiratory Exam: Clear to Ausculation Bilateral. absent: Rales, Rhonchi, Wheezes - Cardiovascular Exam Cardiovascular Exam: REGULAR RHYTHM, +S1, +S2, Murmur. absent: Gallop, JVD, Rubs - GI/Abdominal Exam GI & Abdominal Exam: Soft. absent: Tenderness, Mass - Extremities Exam Extremities Exam: Full ROM, Normal Capillary Refill. absent: Calf Tenderness, Joint Swelling, Pedal Edema Assessment and Plan - Assessment and Plan (Free Text) Assessment: Pulm mass Pneumonia; PTB - clinically improve HTN Cont meds Await pulmonary opinion - spoke w/ RN
--- NOTE | 2017-08-10 18:10 | CP.PCM.PN ---
Subjective - Date & Time of Evaluation Date of Evaluation: 08/10/17 Time of Evaluation: 11:00 - Subjective Subjective: Patient seen and examined at bedside. Sitting up, NAD. Patient says he is feeling well. Reports his appetite is good. Says he has a cough with clear mucous occasionally in the morning. Denies any fever, chills, headache, n/v, abdominal pain, numbness or tingling. Objective - Vital Signs/Intake and Output Vital Signs (last 24 hours): Temp Pulse Resp BP Pulse Ox 97.8 F 88 20 118/77 98 08/10/17 15:45 08/10/17 15:45 08/10/17 15:45 08/10/17 15:45 08/10/17 15:45 Intake and Output: 08/10/17 08/10/17 06:59 18:59 Intake Total 1000 480 Balance 1000 480 - Medications Medications: Current Medications Ethambutol HCl (Myambutol) 1,200 mg PO DAILY [facility] Last Admin: 08/10/17 10:15 Dose: 1,200 mg Isoniazid (Niazid) 300 mg PO DAILY [facility] Last Admin: 08/10/17 10:15 Dose: 300 mg Losartan Potassium (Cozaar) 50 mg PO DAILY [facility] Last Admin: 08/10/17 10:16 Dose: 50 mg Montelukast Sodium (Singulair) 10 mg PO HS [facility] Last Admin: 08/09/17 21:20 Dose: 10 mg Pyrazinamide (Pyrazinamide) 1,500 mg PO DAILY [facility] Last Admin: 08/10/17 10:16 Dose: 1,500 mg Pyridoxine HCl (Vitamin B6 50 Mg Tab) 50 mg PO DAILY [facility] Last Admin: 08/10/17 10:16 Dose: 50 mg Rifampin (Rifampin Cap) 600 mg PO DAILY [facility] Last Admin: 08/10/17 10:15 Dose: 600 mg Fluticasone/Salmeterol (Advair Diskus 250/50) 1 puff INH RQ12 [facility] Last Admin: 08/10/17 07:59 Dose: 1 puff - Labs Labs: 08/08/17 07:29 08/08/17 07:29 PT 13.8 SECONDS (9.7-12.2) H 07/19/17 12:59 INR 1.2 07/19/17 12:59 APTT 38 SECONDS (21-34) H 07/19/17 12:59 - Head Exam Head Exam: ATRAUMATIC, NORMOCEPHALIC - Eye Exam Eye Exam: Normal appearance - ENT Exam ENT Exam: Mucous Membranes Moist - Neck Exam Neck Exam: Normal Inspection - Respiratory Exam Respiratory Exam: Clear to Ausculation Bilateral - Cardiovascular Exam Cardiovascular Exam: REGULAR RHYTHM - GI/Abdominal Exam GI & Abdominal Exam: Soft Assessment and Plan (1) Tuberculosis Assessment & Plan: A/P Patient is a 62 y/o M with a PMHx of HTN who presents with tuberculosis Tuberculosis - Continue anti-TB therapy Bronchoscopy once AFP sputum is negative Status: Acute (2) Hemoptysis Status: Acute
[2017-08-11] MEDS: Fluticasone-Salmeterol 250-50mcg Diskus INH SCH ×2 (07:37→20:17)
--- NOTE | 2017-08-11 08:57 | CP.PCM.PN ---
Subjective - Date & Time of Evaluation Date of Evaluation: 08/11/17 Time of Evaluation: 08:30 - Subjective Subjective: pt no complain. no CO, no SOB, no n/v, good appetite Seen c/o pulm but still (+) AFB 2+ Objective - Vital Signs/Intake and Output Vital Signs (last 24 hours): Temp Pulse Resp BP Pulse Ox 98.3 F 109 H 20 106/73 95 08/11/17 07:56 08/11/17 07:56 08/11/17 07:56 08/11/17 07:56 08/11/17 07:56 Intake and Output: 08/11/17 08/11/17 06:59 18:59 Intake Total 550 Balance 550 - Medications Medications: Current Medications Ethambutol HCl (Myambutol) 1,200 mg PO DAILY [facility] Last Admin: 08/10/17 10:15 Dose: 1,200 mg Isoniazid (Niazid) 300 mg PO DAILY [facility] Last Admin: 08/10/17 10:15 Dose: 300 mg Losartan Potassium (Cozaar) 50 mg PO DAILY [facility] Last Admin: 08/10/17 10:16 Dose: 50 mg Montelukast Sodium (Singulair) 10 mg PO HS [facility] Last Admin: 08/10/17 21:23 Dose: 10 mg Pyrazinamide (Pyrazinamide) 1,500 mg PO DAILY [facility] Last Admin: 08/10/17 10:16 Dose: 1,500 mg Pyridoxine HCl (Vitamin B6 50 Mg Tab) 50 mg PO DAILY [facility] Last Admin: 08/10/17 10:16 Dose: 50 mg Rifampin (Rifampin Cap) 600 mg PO DAILY [facility] Last Admin: 08/10/17 10:15 Dose: 600 mg Fluticasone/Salmeterol (Advair Diskus 250/50) 1 puff INH RQ12 [facility] Last Admin: 08/11/17 07:37 Dose: 1 puff - Labs Labs: 08/08/17 07:29 08/08/17 07:29 PT 13.8 SECONDS (9.7-12.2) H 07/19/17 12:59 INR 1.2 07/19/17 12:59 APTT 38 SECONDS (21-34) H 07/19/17 12:59 - Constitutional Appears: No Acute Distress - Eye Exam Eye Exam: Normal appearance - ENT Exam ENT Exam: Mucous Membranes Moist - Respiratory Exam Respiratory Exam: Decreased Breath Sounds. absent: Rales, Rhonchi, Wheezes - Cardiovascular Exam Cardiovascular Exam: REGULAR RHYTHM, +S1, +S2. absent: Gallop, JVD, Murmur - GI/Abdominal Exam GI & Abdominal Exam: Soft. absent: Tenderness, Mass - Extremities Exam Extremities Exam: Full ROM. absent: Calf Tenderness, Joint Swelling, Normal Capillary Refill, Pedal Edema Assessment and Plan - Assessment and Plan (Free Text) Assessment: Lung mass; PTB w/ persistent AFB HTN Cont meds/ supportive care
[2017-08-12] MEDS: Fluticasone-Salmeterol 250-50mcg Diskus INH SCH (08:05)
--- NOTE | 2017-08-12 08:35 | CP.PCM.PN ---
Subjective - Date & Time of Evaluation Date of Evaluation: 08/12/17 Time of Evaluation: 08:25 - Subjective Subjective: Pt no complain; Walks around w/ mask No CP, no SOB, nO edema, (+) mostly dry cough Objective - Vital Signs/Intake and Output Vital Signs (last 24 hours): Temp Pulse Resp BP Pulse Ox 97.9 F 82 20 102/73 96 08/11/17 23:12 08/11/17 23:12 08/11/17 23:12 08/11/17 23:12 08/11/17 23:12 Intake and Output: 08/12/17 08/12/17 06:59 18:59 Intake Total 700 Balance 700 - Medications Medications: Current Medications Ethambutol HCl (Myambutol) 1,200 mg PO DAILY [facility] Last Admin: 08/11/17 09:25 Dose: 1,200 mg Isoniazid (Niazid) 300 mg PO DAILY [facility] Last Admin: 08/11/17 09:25 Dose: 300 mg Losartan Potassium (Cozaar) 50 mg PO DAILY [facility] Last Admin: 08/11/17 09:25 Dose: 50 mg Montelukast Sodium (Singulair) 10 mg PO HS [facility] Last Admin: 08/11/17 21:07 Dose: 10 mg Pyrazinamide (Pyrazinamide) 1,500 mg PO DAILY [facility] Last Admin: 08/11/17 09:25 Dose: 1,500 mg Pyridoxine HCl (Vitamin B6 50 Mg Tab) 50 mg PO DAILY [facility] Last Admin: 08/11/17 09:25 Dose: 50 mg Rifampin (Rifampin Cap) 600 mg PO DAILY [facility] Last Admin: 08/11/17 09:25 Dose: 600 mg Fluticasone/Salmeterol (Advair Diskus 250/50) 1 puff INH RQ12 [facility] Last Admin: 08/12/17 08:05 Dose: 1 puff - Labs Labs: 08/08/17 07:29 08/08/17 07:29 PT 13.8 SECONDS (9.7-12.2) H 07/19/17 12:59 INR 1.2 07/19/17 12:59 APTT 38 SECONDS (21-34) H 07/19/17 12:59 - Constitutional Appears: No Acute Distress - Eye Exam Eye Exam: Normal appearance - ENT Exam ENT Exam: Mucous Membranes Moist - Neck Exam Neck Exam: Full ROM. absent: Lymphadenopathy, Thyromegaly - Respiratory Exam Respiratory Exam: Clear to Ausculation Bilateral, Wheezes. absent: Rales, Rhonchi - Cardiovascular Exam Cardiovascular Exam: REGULAR RHYTHM, +S1, +S2. absent: Gallop, JVD, Murmur - GI/Abdominal Exam GI & Abdominal Exam: Soft. absent: Mass - Extremities Exam Extremities Exam: Full ROM, Normal Capillary Refill. absent: Calf Tenderness, Joint Swelling, Pedal Edema Assessment and Plan - Assessment and Plan (Free Text) Assessment: Lung mass; PTB HTN cont meds AFB neg x 1
[2017-08-13] MEDS: Fluticasone-Salmeterol 250-50mcg Diskus INH SCH ×2 (07:50→20:06)
--- NOTE | 2017-08-13 09:46 | CP.PCM.PN ---
Subjective - Date & Time of Evaluation Date of Evaluation: 08/13/17 Time of Evaluation: 08:24 - Subjective Subjective: Pt no complain; walking w/ mask on No CP, no SOB, no edema, no p[alpitation No n/v nor diarrhea Objective - Vital Signs/Intake and Output Vital Signs (last 24 hours): Temp Pulse Resp BP Pulse Ox 98.1 F 97 H 18 113/75 97 08/13/17 07:20 08/13/17 07:20 08/13/17 07:20 08/13/17 07:20 08/13/17 07:20 Intake and Output: 08/13/17 08/13/17 06:59 18:59 Intake Total 840 Balance 840 - Medications Medications: Current Medications Ethambutol HCl (Myambutol) 1,200 mg PO DAILY [facility] Last Admin: 08/13/17 09:02 Dose: 1,200 mg Isoniazid (Niazid) 300 mg PO DAILY [facility] Last Admin: 08/13/17 09:02 Dose: 300 mg Losartan Potassium (Cozaar) 50 mg PO DAILY [facility] Last Admin: 08/13/17 09:02 Dose: 50 mg Montelukast Sodium (Singulair) 10 mg PO HS [facility] Last Admin: 08/12/17 21:27 Dose: 10 mg Pyrazinamide (Pyrazinamide) 1,500 mg PO DAILY [facility] Last Admin: 08/13/17 09:03 Dose: 1,500 mg Pyridoxine HCl (Vitamin B6 50 Mg Tab) 50 mg PO DAILY [facility] Last Admin: 08/13/17 09:03 Dose: 50 mg Rifampin (Rifampin Cap) 600 mg PO DAILY [facility] Last Admin: 08/13/17 09:02 Dose: 600 mg Fluticasone/Salmeterol (Advair Diskus 250/50) 1 puff INH RQ12 [facility] Last Admin: 08/13/17 07:50 Dose: 1 puff - Labs Labs: 08/08/17 07:29 08/08/17 07:29 PT 13.8 SECONDS (9.7-12.2) H 07/19/17 12:59 INR 1.2 07/19/17 12:59 APTT 38 SECONDS (21-34) H 07/19/17 12:59 - Constitutional Appears: No Acute Distress - Eye Exam Eye Exam: Normal appearance - ENT Exam ENT Exam: Mucous Membranes Moist - Neck Exam Neck Exam: Full ROM. absent: Lymphadenopathy, Thyromegaly - Respiratory Exam Respiratory Exam: Clear to Ausculation Bilateral. absent: Rales, Rhonchi, Wheezes - GI/Abdominal Exam GI & Abdominal Exam: Soft. absent: Tenderness, Mass - Extremities Exam Extremities Exam: Full ROM, Normal Capillary Refill. absent: Calf Tenderness, Joint Swelling, Pedal Edema Assessment and Plan - Assessment and Plan (Free Text) Assessment: Lung mass; PTB, HTN Await 3 neg AFB For Bronchoscopy Cont meds
[2017-08-14] MEDS: Fluticasone-Salmeterol 250-50mcg Diskus INH SCH ×3 (08:05→19:37)
[2017-08-15] MEDS: Fluticasone-Salmeterol 250-50mcg Diskus INH SCH ×2 (08:00→19:20)
[2017-08-16] MEDS: Fluticasone-Salmeterol 250-50mcg Diskus INH SCH ×2 (08:10→20:04)
--- NOTE | 2017-08-16 09:23 | CP.PCM.PN ---
Subjective - Date & Time of Evaluation Date of Evaluation: 08/16/17 Time of Evaluation: 08:45 - Subjective Subjective: Pt no complain; walkjing w/ mask AFB still (+); but bladimir dec cough, no CP, no SOB, no edema, No n/v, no diarrhea, no dysuria, no freq/ nocturia Objective - Vital Signs/Intake and Output Vital Signs (last 24 hours): Temp Pulse Resp BP Pulse Ox 98.4 F 99 H 20 104/74 96 08/16/17 08:29 08/16/17 08:29 08/16/17 08:29 08/16/17 08:29 08/16/17 08:29 Intake and Output: 08/16/17 08/16/17 06:59 18:59 Intake Total 400 450 Balance 400 450 - Medications Medications: Current Medications Ethambutol HCl (Myambutol) 1,200 mg PO DAILY [facility] Last Admin: 08/15/17 09:34 Dose: 1,200 mg Isoniazid (Niazid) 300 mg PO DAILY [facility] Last Admin: 08/15/17 09:34 Dose: 300 mg Losartan Potassium (Cozaar) 50 mg PO DAILY [facility] Last Admin: 08/15/17 09:34 Dose: 50 mg Montelukast Sodium (Singulair) 10 mg PO HS [facility] Last Admin: 08/15/17 21:30 Dose: 10 mg Pyrazinamide (Pyrazinamide) 1,500 mg PO DAILY [facility] Last Admin: 08/15/17 09:34 Dose: 1,500 mg Pyridoxine HCl (Vitamin B6 50 Mg Tab) 50 mg PO DAILY [facility] Last Admin: 08/15/17 09:34 Dose: 50 mg Rifampin (Rifampin Cap) 600 mg PO DAILY [facility] Last Admin: 08/15/17 09:34 Dose: 600 mg Fluticasone/Salmeterol (Advair Diskus 250/50) 1 puff INH RQ12 [facility] Last Admin: 08/16/17 08:10 Dose: 1 puff - Labs Labs: 08/08/17 07:29 08/08/17 07:29 PT 13.8 SECONDS (9.7-12.2) H 07/19/17 12:59 INR 1.2 07/19/17 12:59 APTT 38 SECONDS (21-34) H 10/30/17 12:59 - Constitutional Appears: No Acute Distress - Eye Exam Eye Exam: Normal appearance - ENT Exam ENT Exam: Mucous Membranes Moist - Neck Exam Neck Exam: Full ROM. absent: Lymphadenopathy, Thyromegaly - Respiratory Exam Respiratory Exam: Clear to Ausculation Bilateral. absent: Rales, Rhonchi, Wheezes - Cardiovascular Exam Cardiovascular Exam: REGULAR RHYTHM, +S1, +S2, Murmur. absent: Gallop, JVD - GI/Abdominal Exam GI & Abdominal Exam: Soft. absent: Tenderness, Mass - Extremities Exam Extremities Exam: Full ROM, Normal Capillary Refill. absent: Calf Tenderness, Joint Swelling, Pedal Edema Assessment and Plan - Assessment and Plan (Free Text) Assessment: Lung mass; HTN Pneumonia w/ PTB Cont meds Repeat AFB
--- NOTE | 2017-08-16 11:55 | CP.PCM.PN ---
Subjective - Date & Time of Evaluation Date of Evaluation: 08/16/17 Time of Evaluation: 11:00 - Subjective Subjective: Patient seen and examined Denies hemoptysis, denies cough, denies fever chills AFB positive Remained on respiratory isolation Seen by infectious disease awaiting for culture and sensitivity Follow-up CAT scan of chest Objective - Vital Signs/Intake and Output Vital Signs (last 24 hours): Temp Pulse Resp BP Pulse Ox 98.4 F 99 H 20 104/74 96 08/16/17 08:29 08/16/17 08:29 08/16/17 08:29 08/16/17 08:29 08/16/17 08:29 Intake and Output: 08/16/17 08/16/17 06:59 18:59 Intake Total 400 450 Balance 400 450 - Medications Medications: Current Medications Ethambutol HCl (Myambutol) 1,200 mg PO DAILY [facility] Last Admin: 08/16/17 09:49 Dose: 1,200 mg Isoniazid (Niazid) 300 mg PO DAILY [facility] Last Admin: 08/16/17 09:49 Dose: 300 mg Losartan Potassium (Cozaar) 50 mg PO DAILY [facility] Last Admin: 08/16/17 09:49 Dose: 50 mg Montelukast Sodium (Singulair) 10 mg PO HS [facility] Last Admin: 08/15/17 21:30 Dose: 10 mg Pyrazinamide (Pyrazinamide) 1,500 mg PO DAILY [facility] Last Admin: 08/16/17 09:49 Dose: 1,500 mg Pyridoxine HCl (Vitamin B6 50 Mg Tab) 50 mg PO DAILY [facility] Last Admin: 08/16/17 09:49 Dose: 50 mg Rifampin (Rifampin Cap) 600 mg PO DAILY [facility] Last Admin: 08/16/17 09:49 Dose: 600 mg Fluticasone/Salmeterol (Advair Diskus 250/50) 1 puff INH RQ12 [facility] Last Admin: 08/16/17 08:10 Dose: 1 puff - Labs Labs: 08/08/17 07:29 08/08/17 07:29 PT 13.8 SECONDS (9.7-12.2) H 07/19/17 12:59 INR 1.2 07/19/17 12:59 APTT 38 SECONDS (21-34) H 07/19/17 12:59 Assessment and Plan (1) Tuberculosis Status: Acute (2) Hemoptysis Status: Acute
[2017-08-17 07:27] LABS: BASO # 0.1 K/uL (0.0-0.2); BASO % 0.9 % (0.0-2.0); EOS # 0.3 K/uL (0.0-0.7); EOS % 3.9 % (0.0-4.0); HEMATOCRIT 37.7 % (35.0-51.0); LYMPH # 1.1 K/uL (1.0-4.3); LYMPH % 13.4 % (20.0-40.0); MEAN CELL VOLUME 87.5 fL (80.0-94.0); MEAN CORPUSCULAR HEMOGLOBIN 29.4 pg (27.0-31.0); MEAN CORPUSCULAR HGB CONC 33.6 g/dL (33.0-37.0); MONO # 0.9 K/uL (0.0-0.8); MONO % 11.2 % (0.0-10.0); RED CELL DISTRIBUTION WIDTH 14.7 % (11.5-14.5); WHITE BLOOD COUNT 7.9 K/uL (4.8-10.8)
[2017-08-17] MEDS: Fluticasone-Salmeterol 250-50mcg Diskus INH SCH ×2 (07:32→20:13)
[2017-08-17 07:47] LABS: ALB/GLOB RATIO 1.1 (1.0-2.1); ALKALINE PHOSPHATASE 99 U/L (38-126); ALT/SGPT 32 U/L (21-72); AST/SGOT 27 U/L (17-59); BILIRUBIN,TOTAL 0.6 mg/dL (0.2-1.3); BLOOD UREA NITROGEN 14 mg/dL (9-20); CALCIUM 8.6 mg/dl (8.6-10.4); CARBON DIOXIDE 25 mmol/L (22-30); CHLORIDE 98 mmol/L (98-107); GFR AFRICAN-AMERICAN > 60; GLUCOSE,RANDOM 128 mg/dL (75-110); POTASSIUM 3.9 mmol/L (3.6-5.2); SODIUM 134 mmol/L (132-148); TOTAL PROTEIN 7.6 g/dL (6.3-8.3)
--- NOTE | 2017-08-17 09:16 | CP.PCM.PN ---
Subjective - Date & Time of Evaluation Date of Evaluation: 08/17/17 Time of Evaluation: 09:15 - Subjective Subjective: Pt no complain; walks around cough is mostly dry; No CP, no SOB, no edema; Appetite is better Objective - Vital Signs/Intake and Output Vital Signs (last 24 hours): Temp Pulse Resp BP Pulse Ox 97.9 F 93 H 20 133/86 96 08/17/17 07:00 08/17/17 07:00 08/17/17 07:00 08/17/17 07:00 08/17/17 07:00 - Medications Medications: Current Medications Ethambutol HCl (Myambutol) 1,200 mg PO DAILY [facility] Last Admin: 08/16/17 09:49 Dose: 1,200 mg Isoniazid (Niazid) 300 mg PO DAILY [facility] Last Admin: 08/16/17 09:49 Dose: 300 mg Losartan Potassium (Cozaar) 50 mg PO DAILY [facility] Last Admin: 08/16/17 09:49 Dose: 50 mg Montelukast Sodium (Singulair) 10 mg PO HS [facility] Last Admin: 08/16/17 22:09 Dose: 10 mg Pyrazinamide (Pyrazinamide) 1,500 mg PO DAILY [facility] Last Admin: 08/16/17 09:49 Dose: 1,500 mg Pyridoxine HCl (Vitamin B6 50 Mg Tab) 50 mg PO DAILY [facility] Last Admin: 08/16/17 09:49 Dose: 50 mg Rifampin (Rifampin Cap) 600 mg PO DAILY [facility] Last Admin: 08/16/17 09:49 Dose: 600 mg Fluticasone/Salmeterol (Advair Diskus 250/50) 1 puff INH RQ12 [facility] Last Admin: 08/17/17 07:32 Dose: 1 puff - Labs Labs: 08/17/17 07:18 08/17/17 07:18 PT 13.8 SECONDS (9.7-12.2) H 07/19/17 12:59 INR 1.2 07/19/17 12:59 APTT 38 SECONDS (21-34) H 07/19/17 12:59 - Constitutional Appears: No Acute Distress - Eye Exam Eye Exam: Normal appearance - ENT Exam ENT Exam: Mucous Membranes Moist - Neck Exam Neck Exam: Full ROM. absent: Lymphadenopathy, Thyromegaly - Respiratory Exam Respiratory Exam: Clear to Ausculation Bilateral. absent: Rales, Rhonchi, Wheezes - Cardiovascular Exam Cardiovascular Exam: REGULAR RHYTHM, +S1, +S2. absent: Gallop, Murmur - GI/Abdominal Exam GI & Abdominal Exam: Soft. absent: Tenderness, Mass - Extremities Exam Extremities Exam: Calf Tenderness, Full ROM, Normal Capillary Refill, Normal Inspection. absent: Joint Swelling, Pedal Edema Assessment and Plan - Assessment and Plan (Free Text) Assessment: PTB/ Pneumonia - clinically improve Lung mass HTN Cont meds/ repeat CXR
[2017-08-18] MEDS: Fluticasone-Salmeterol 250-50mcg Diskus INH SCH ×2 (07:51→21:52)
--- NOTE | 2017-08-18 08:54 | CP.PCM.PN ---
Subjective - Date & Time of Evaluation Date of Evaluation: 08/18/17 Time of Evaluation: 08:30 - Subjective Subjective: Pt no complain; Walk in corridor when he can No CP, no SOB, no edema, no cough Objective - Vital Signs/Intake and Output Vital Signs (last 24 hours): Temp Pulse Resp BP Pulse Ox 98.3 F 76 18 102/69 95 08/18/17 00:00 08/18/17 00:00 08/18/17 00:00 08/18/17 00:00 08/18/17 00:00 Intake and Output: 08/18/17 08/18/17 06:59 18:59 Intake Total 1000 Balance 1000 - Medications Medications: Current Medications Ethambutol HCl (Myambutol) 1,200 mg PO DAILY [facility] Last Admin: 08/17/17 09:41 Dose: 1,200 mg Isoniazid (Niazid) 300 mg PO DAILY [facility] Last Admin: 08/17/17 09:41 Dose: 300 mg Losartan Potassium (Cozaar) 50 mg PO DAILY [facility] Last Admin: 08/17/17 09:41 Dose: 50 mg Montelukast Sodium (Singulair) 10 mg PO HS [facility] Last Admin: 08/17/17 21:14 Dose: 10 mg Pyrazinamide (Pyrazinamide) 1,500 mg PO DAILY [facility] Last Admin: 08/17/17 09:41 Dose: 1,500 mg Pyridoxine HCl (Vitamin B6 50 Mg Tab) 50 mg PO DAILY [facility] Last Admin: 08/17/17 09:41 Dose: 50 mg Rifampin (Rifampin Cap) 600 mg PO DAILY [facility] Last Admin: 08/17/17 09:41 Dose: 600 mg Fluticasone/Salmeterol (Advair Diskus 250/50) 1 puff INH RQ12 [facility] Last Admin: 08/18/17 07:51 Dose: 1 puff - Labs Labs: 08/17/17 07:18 08/17/17 07:18 PT 13.8 SECONDS (9.7-12.2) H 07/19/17 12:59 INR 1.2 07/19/17 12:59 APTT 38 SECONDS (21-34) H 07/19/17 12:59 - Constitutional Appears: No Acute Distress - Eye Exam Eye Exam: Normal appearance - ENT Exam ENT Exam: Mucous Membranes Moist - Neck Exam Neck Exam: Full ROM. absent: Lymphadenopathy, Thyromegaly - Respiratory Exam Respiratory Exam: Clear to Ausculation Bilateral. absent: Rales, Rhonchi, Wheezes - Cardiovascular Exam Cardiovascular Exam: +S1, +S2. absent: Gallop, REGULAR RHYTHM, JVD, Murmur - GI/Abdominal Exam GI & Abdominal Exam: Soft. absent: Tenderness, Mass - Extremities Exam Extremities Exam: Full ROM, Normal Capillary Refill. absent: Calf Tenderness, Joint Swelling, Pedal Edema Assessment and Plan - Assessment and Plan (Free Text) Assessment: Lung mass Pneumonia; PTB HTN Cont meds Repeat CXR
--- NOTE | 2017-08-18 12:07 | RAD ---
HISTORY: F/up COMPARISON: CT chest from 08/06/2017 TECHNIQUE: Chest PA, apical and lateral FINDINGS: LUNGS: There is redemonstration of confluent airspace disease in both posterior upper lobes, worse on the right. There is also involvement of the left lung apex. The right lung apex is clear. PLEURA: No significant pleural effusion identified. No pneumothorax apparent. CARDIOVASCULAR: Normal. OSSEOUS STRUCTURES: No significant abnormalities. VISUALIZED UPPER ABDOMEN: Normal. OTHER FINDINGS: None. IMPRESSION: Little interval change in known confluent chronic airspace disease in both posterior upper lobes, worse on the right. Involvement of the left lung apex. No evidence of mass or disease in the right lung apex.
--- NOTE | 2017-08-19 09:44 | CP.PCM.PN ---
Subjective - Date & Time of Evaluation Date of Evaluation: 08/19/17 Time of Evaluation: 09:30 - Subjective Subjective: Pt no complain; no CP, no cough, no edema, no n/v Objective - Vital Signs/Intake and Output Vital Signs (last 24 hours): Temp Pulse Resp BP Pulse Ox 97.9 F 91 H 20 124/80 97 08/19/17 08:00 08/19/17 08:00 08/19/17 08:00 08/19/17 08:00 08/19/17 08:00 Intake and Output: 08/19/17 08/19/17 06:59 18:59 Intake Total 1400 Balance 1400 - Medications Medications: Current Medications Ethambutol HCl (Myambutol) 1,200 mg PO DAILY [facility] Last Admin: 08/19/17 09:23 Dose: 1,200 mg Isoniazid (Niazid) 300 mg PO DAILY [facility] Last Admin: 08/19/17 09:22 Dose: 300 mg Losartan Potassium (Cozaar) 50 mg PO DAILY [facility] Last Admin: 08/19/17 09:21 Dose: 50 mg Montelukast Sodium (Singulair) 10 mg PO HS [facility] Last Admin: 08/18/17 21:03 Dose: 10 mg Pyrazinamide (Pyrazinamide) 1,500 mg PO DAILY [facility] Last Admin: 08/19/17 09:23 Dose: 1,500 mg Pyridoxine HCl (Vitamin B6 50 Mg Tab) 50 mg PO DAILY [facility] Last Admin: 08/19/17 09:23 Dose: 50 mg Rifampin (Rifampin Cap) 600 mg PO DAILY [facility] Last Admin: 08/19/17 09:22 Dose: 600 mg Fluticasone/Salmeterol (Advair Diskus 250/50) 1 puff INH RQ12 [facility] Last Admin: 08/18/17 21:52 Dose: 1 puff - Labs Labs: 08/17/17 07:18 08/17/17 07:18 PT 13.8 SECONDS (9.7-12.2) H 07/19/17 12:59 INR 1.2 07/19/17 12:59 APTT 38 SECONDS (21-34) H 07/19/17 12:59 - Constitutional Appears: No Acute Distress - Eye Exam Eye Exam: Normal appearance - ENT Exam ENT Exam: Mucous Membranes Moist - Neck Exam Neck Exam: Full ROM. absent: Lymphadenopathy, Thyromegaly - Respiratory Exam Respiratory Exam: Clear to Ausculation Bilateral. absent: Rales, Rhonchi, Wheezes - GI/Abdominal Exam GI & Abdominal Exam: Soft. absent: Tenderness, Mass - Extremities Exam Extremities Exam: Full ROM, Normal Capillary Refill. absent: Calf Tenderness, Joint Swelling, Pedal Edema Assessment and Plan - Assessment and Plan (Free Text) Assessment: PTB; pneumonia HTN Cont meds CXR reviewed - no change
[2017-08-19] MEDS: Fluticasone-Salmeterol 250-50mcg Diskus INH SCH ×2 (10:18→20:00)
--- NOTE | 2017-08-20 08:35 | CP.PCM.PN ---
Subjective - Date & Time of Evaluation Date of Evaluation: 08/20/17 Time of Evaluation: 08:25 - Subjective Subjective: pt feels well; frustrated c/o (+) AFB still No CP, no SOB, no edema, almost no cough Objective - Vital Signs/Intake and Output Vital Signs (last 24 hours): Temp Pulse Resp BP Pulse Ox 97.9 F 72 20 107/70 96 08/19/17 23:50 08/19/17 23:50 08/19/17 23:50 08/19/17 23:50 08/19/17 23:50 Intake and Output: 08/20/17 08/20/17 06:59 18:59 Intake Total 240 Balance 240 - Medications Medications: Current Medications Ethambutol HCl (Myambutol) 1,200 mg PO DAILY [facility] Last Admin: 08/19/17 09:23 Dose: 1,200 mg Isoniazid (Niazid) 300 mg PO DAILY [facility] Losartan Potassium (Cozaar) 50 mg PO DAILY [facility] Last Admin: 08/19/17 09:21 Dose: 50 mg Montelukast Sodium (Singulair) 10 mg PO HS [facility] Last Admin: 08/19/17 21:21 Dose: 10 mg Pyrazinamide (Pyrazinamide) 1,500 mg PO DAILY [facility] Last Admin: 08/19/17 09:23 Dose: 1,500 mg Pyridoxine HCl (Vitamin B6 50 Mg Tab) 50 mg PO DAILY [facility] Last Admin: 08/19/17 09:23 Dose: 50 mg Rifampin (Rifampin Cap) 600 mg PO DAILY [facility] Last Admin: 08/19/17 09:22 Dose: 600 mg Fluticasone/Salmeterol (Advair Diskus 250/50) 1 puff INH RQ12 [facility] Last Admin: 08/19/17 20:00 Dose: 1 puff - Labs Labs: 08/17/17 07:18 08/17/17 07:18 PT 13.8 SECONDS (9.7-12.2) H 07/19/17 12:59 INR 1.2 07/19/17 12:59 APTT 38 SECONDS (21-34) H 07/19/17 12:59 - Constitutional Appears: No Acute Distress - Eye Exam Eye Exam: Normal appearance - ENT Exam ENT Exam: Mucous Membranes Moist - Neck Exam Neck Exam: Full ROM. absent: Lymphadenopathy - Respiratory Exam Respiratory Exam: Clear to Ausculation Bilateral, Rales. absent: Decreased Breath Sounds, Rhonchi, Wheezes - Cardiovascular Exam Cardiovascular Exam: REGULAR RHYTHM, +S1, +S2. absent: Gallop, JVD - GI/Abdominal Exam GI & Abdominal Exam: Soft. absent: Tenderness, Mass - Extremities Exam Extremities Exam: Full ROM, Normal Capillary Refill. absent: Calf Tenderness, Joint Swelling, Pedal Edema Assessment and Plan - Assessment and Plan (Free Text) Assessment: Lung mass? ; P{neumna w/ PTB HTN Cont meds/ supportive care
[2017-08-20] MEDS: Fluticasone-Salmeterol 250-50mcg Diskus INH SCH ×2 (09:17→20:02)
--- NOTE | 2017-08-20 12:07 | CP.PCM.PN ---
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 Continue present medication Sputum AFB x3 once negative DC isolation Objective - Vital Signs/Intake and Output Vital Signs (last 24 hours): Temp Pulse Resp BP Pulse Ox 98.0 F 99 H 20 121/83 96 08/20/17 07:08 08/20/17 07:08 08/20/17 07:08 08/20/17 07:08 08/20/17 07:08 Intake and Output: 08/20/17 08/20/17 06:59 18:59 Intake Total 240 240 Balance 240 240 - Medications Medications: Current Medications Ethambutol HCl (Myambutol) 1,200 mg PO DAILY [facility] Last Admin: 08/20/17 09:52 Dose: 1,200 mg Isoniazid (Niazid) 300 mg PO DAILY [facility] Last Admin: 08/20/17 09:53 Dose: 300 mg Losartan Potassium (Cozaar) 50 mg PO DAILY [facility] Last Admin: 08/20/17 09:53 Dose: 50 mg Montelukast Sodium (Singulair) 10 mg PO HS [facility] Last Admin: 08/19/17 21:21 Dose: 10 mg Pyrazinamide (Pyrazinamide) 1,500 mg PO DAILY [facility] Last Admin: 08/20/17 09:53 Dose: 1,500 mg Pyridoxine HCl (Vitamin B6 50 Mg Tab) 50 mg PO DAILY [facility] Last Admin: 08/20/17 09:53 Dose: 50 mg Rifampin (Rifampin Cap) 600 mg PO DAILY [facility] Last Admin: 08/20/17 09:53 Dose: 600 mg Fluticasone/Salmeterol (Advair Diskus 250/50) 1 puff INH RQ12 [facility] Last Admin: 08/20/17 09:17 Dose: 1 puff - Labs Labs: 08/17/17 07:18 08/17/17 07:18 PT 13.8 SECONDS (9.7-12.2) H 07/19/17 12:59 INR 1.2 07/19/17 12:59 APTT 38 SECONDS (21-34) H 07/19/17 12:59 Assessment and Plan (1) Tuberculosis Status: Acute (2) Hemoptysis Status: Acute
--- NOTE | 2017-08-20 16:17 | CP.PCM.PN ---
Subjective - Date & Time of Evaluation Date of Evaluation: 08/20/17 Time of Evaluation: 07:00 - Subjective Subjective: await 3 neg smears Objective - Vital Signs/Intake and Output Vital Signs (last 24 hours): Temp Pulse Resp BP Pulse Ox 98.0 F 99 H 20 121/83 96 08/20/17 07:08 08/20/17 07:08 08/20/17 07:08 08/20/17 07:08 08/20/17 07:08 Intake and Output: 08/20/17 08/20/17 06:59 18:59 Intake Total 240 240 Balance 240 240 - Medications Medications: Current Medications Ethambutol HCl (Myambutol) 1,200 mg PO DAILY [facility] Last Admin: 08/20/17 09:52 Dose: 1,200 mg Isoniazid (Niazid) 300 mg PO DAILY [facility] Last Admin: 08/20/17 09:53 Dose: 300 mg Losartan Potassium (Cozaar) 50 mg PO DAILY [facility] Last Admin: 08/20/17 09:53 Dose: 50 mg Montelukast Sodium (Singulair) 10 mg PO [facility] Last Admin: 08/19/17 21:21 Dose: 10 mg Pyrazinamide (Pyrazinamide) 1,500 mg PO DAILY [facility] Last Admin: 08/20/17 09:53 Dose: 1,500 mg Pyridoxine HCl (Vitamin B6 50 Mg Tab) 50 mg PO DAILY [facility] Last Admin: 08/20/17 09:53 Dose: 50 mg Rifampin (Rifampin Cap) 600 mg PO DAILY [facility] Last Admin: 08/20/17 09:53 Dose: 600 mg Fluticasone/Salmeterol (Advair Diskus 250/50) 1 puff INH RQ12 [facility] Last Admin: 08/20/17 09:17 Dose: 1 puff - Labs Labs: 08/17/17 07:18 08/17/17 07:18 PT 13.8 SECONDS (9.7-12.2) H 07/19/17 12:59 INR 1.2 07/19/17 12:59 APTT 38 SECONDS (21-34) H 07/19/17 12:59 - Constitutional Appears: Non-toxic, Chronically Ill - Head Exam Head Exam: NORMOCEPHALIC - Eye Exam Eye Exam: PERRL - ENT Exam ENT Exam: Mucous Membranes Dry - Neck Exam Neck Exam: absent: Lymphadenopathy - Respiratory Exam Respiratory Exam: Decreased Breath Sounds - Cardiovascular Exam Cardiovascular Exam: REGULAR RHYTHM - GI/Abdominal Exam GI & Abdominal Exam: Distended Assessment and Plan (1) Hemoptysis Status: Acute (2) Pneumonia Status: Acute (3) Tuberculosis Status: Acute (4) Tuberculosis Status: Acute
[2017-08-21] MEDS: Fluticasone-Salmeterol 250-50mcg Diskus INH SCH ×2 (08:21→08:22)
--- NOTE | 2017-08-21 08:21 | CP.PCM.PN ---
Subjective - Date & Time of Evaluation Date of Evaluation: 08/21/17 Time of Evaluation: 08:01 - Subjective Subjective: Pt no complain; AFB still persist. No CP, no SOB, no edema, no cough Mycobacterium - sensitive to all meds Objective - Vital Signs/Intake and Output Vital Signs (last 24 hours): Temp Pulse Resp BP Pulse Ox 97.9 F 91 H 19 110/76 95 08/21/17 07:35 08/21/17 07:35 08/21/17 07:35 08/21/17 07:35 08/21/17 07:35 Intake and Output: 08/21/17 08/21/17 06:59 18:59 Intake Total 1240 Balance 1240 - Medications Medications: Current Medications Ethambutol HCl (Myambutol) 1,200 mg PO DAILY [facility] Last Admin: 08/20/17 09:52 Dose: 1,200 mg Isoniazid (Niazid) 300 mg PO DAILY [facility] Last Admin: 08/20/17 09:53 Dose: 300 mg Losartan Potassium (Cozaar) 50 mg PO DAILY [facility] Last Admin: 08/20/17 09:53 Dose: 50 mg Montelukast Sodium (Singulair) 10 mg PO HS [facility] Last Admin: 08/20/17 21:13 Dose: 10 mg Pyrazinamide (Pyrazinamide) 1,500 mg PO DAILY [facility] Last Admin: 08/20/17 09:53 Dose: 1,500 mg Pyridoxine HCl (Vitamin B6 50 Mg Tab) 50 mg PO DAILY [facility] Last Admin: 08/20/17 09:53 Dose: 50 mg Rifampin (Rifampin Cap) 600 mg PO DAILY [facility] Last Admin: 08/20/17 09:53 Dose: 600 mg Fluticasone/Salmeterol (Advair Diskus 250/50) 1 puff INH RQ12 [facility] Last Admin: 08/20/17 20:02 Dose: 1 puff - Labs Labs: 08/17/17 07:18 08/17/17 07:18 PT 13.8 SECONDS (9.7-12.2) H 07/19/17 12:59 INR 1.2 07/19/17 12:59 APTT 38 SECONDS (21-34) H 07/19/17 12:59 - Constitutional Appears: No Acute Distress - Eye Exam Eye Exam: Normal appearance - ENT Exam ENT Exam: Mucous Membranes Moist - Neck Exam Neck Exam: Full ROM. absent: Lymphadenopathy, Normal Inspection, Thyromegaly - Respiratory Exam Respiratory Exam: Clear to Ausculation Bilateral. absent: Rales, Rhonchi, Wheezes - Cardiovascular Exam Cardiovascular Exam: REGULAR RHYTHM, +S1, +S2, Murmur. absent: Gallop, JVD - GI/Abdominal Exam GI & Abdominal Exam: Soft. absent: Tenderness, Mass - Extremities Exam Extremities Exam: Full ROM, Normal Capillary Refill. absent: Calf Tenderness, Joint Swelling, Pedal Edema Assessment and Plan - Assessment and Plan (Free Text) Assessment: PTB; HTN Cont meds;
[2017-08-22] MEDS: Fluticasone-Salmeterol 250-50mcg Diskus INH SCH (08:00)
--- NOTE | 2017-08-22 14:38 | CP.PCM.PN ---
Subjective - Date & Time of Evaluation Date of Evaluation: 08/22/17 Time of Evaluation: 09:00 - Subjective Subjective: tolerating rx Objective - Vital Signs/Intake and Output Vital Signs (last 24 hours): Temp Pulse Resp BP Pulse Ox 97.9 F 89 20 127/79 95 08/22/17 09:18 08/22/17 09:18 08/22/17 09:18 08/22/17 09:18 08/22/17 09:18 - Medications Medications: Current Medications Ethambutol HCl (Myambutol) 1,200 mg PO DAILY [facility] Last Admin: 08/22/17 10:00 Dose: 1,200 mg Isoniazid (Niazid) 300 mg PO DAILY [facility] Last Admin: 08/22/17 10:00 Dose: 300 mg Losartan Potassium (Cozaar) 50 mg PO DAILY [facility] Last Admin: 08/22/17 09:55 Dose: 50 mg Pyrazinamide (Pyrazinamide) 1,500 mg PO DAILY [facility] Last Admin: 08/22/17 09:52 Dose: 1,500 mg Pyridoxine HCl (Vitamin B6 50 Mg Tab) 50 mg PO DAILY [facility] Last Admin: 08/22/17 09:55 Dose: 50 mg Rifampin (Rifampin Cap) 600 mg PO DAILY [facility] Last Admin: 08/22/17 09:53 Dose: 600 mg Fluticasone/Salmeterol (Advair Diskus 250/50) 1 puff INH RQ12 [facility] Last Admin: 08/22/17 08:00 Dose: 1 puff - Labs Labs: 08/17/17 07:18 08/17/17 07:18 PT 13.8 SECONDS (9.7-12.2) H 07/19/17 12:59 INR 1.2 07/19/17 12:59 APTT 38 SECONDS (21-34) H 07/19/17 12:59 - Constitutional Appears: Non-toxic, Chronically Ill - Head Exam Head Exam: NORMOCEPHALIC - Eye Exam Eye Exam: PERRL - ENT Exam ENT Exam: Mucous Membranes Dry - Neck Exam Neck Exam: absent: Lymphadenopathy - Respiratory Exam Respiratory Exam: Decreased Breath Sounds - Cardiovascular Exam Cardiovascular Exam: REGULAR RHYTHM - GI/Abdominal Exam GI & Abdominal Exam: Distended, Soft - Rectal Exam Rectal Exam: Deferred Assessment and Plan (1) Hemoptysis Status: Acute (2) Pneumonia Status: Acute (3) Tuberculosis Status: Acute (4) Tuberculosis Status: Acute - Assessment and Plan (Free Text) Assessment: await 3 neg smears cont ripe x 2 mos then inh/rif for 6 mos
[2017-08-23] MEDS: Fluticasone-Salmeterol 250-50mcg Diskus INH SCH ×2 (08:11→20:20)
--- NOTE | 2017-08-23 10:00 | CP.PCM.PN ---
Subjective - Date & Time of Evaluation Date of Evaluation: 08/23/17 Time of Evaluation: 09:40 - Subjective Subjective: Pt walking in corridor; Does walk 30-40 ins/d No CP, no SOB, no cough, no n/v Objective - Vital Signs/Intake and Output Vital Signs (last 24 hours): Temp Pulse Resp BP Pulse Ox 98.0 F 68 20 108/71 95 08/22/17 23:00 08/22/17 23:00 08/22/17 23:00 08/22/17 23:00 08/22/17 23:00 - Medications Medications: Current Medications Ethambutol HCl (Myambutol) 1,200 mg PO DAILY [facility] Last Admin: 08/22/17 10:00 Dose: 1,200 mg Isoniazid (Niazid) 300 mg PO DAILY [facility] Last Admin: 08/22/17 10:00 Dose: 300 mg Losartan Potassium (Cozaar) 50 mg PO DAILY [facility] Last Admin: 08/22/17 09:55 Dose: 50 mg Pyrazinamide (Pyrazinamide) 1,500 mg PO DAILY [facility] Last Admin: 08/22/17 09:52 Dose: 1,500 mg Pyridoxine HCl (Vitamin B6 50 Mg Tab) 50 mg PO DAILY [facility] Last Admin: 08/22/17 09:55 Dose: 50 mg Rifampin (Rifampin Cap) 600 mg PO DAILY [facility] Last Admin: 08/22/17 09:53 Dose: 600 mg Fluticasone/Salmeterol (Advair Diskus 250/50) 1 puff INH RQ12 [facility] Last Admin: 08/23/17 08:11 Dose: Not Given - Labs Labs: 08/17/17 07:18 08/17/17 07:18 PT 13.8 SECONDS (9.7-12.2) H 07/19/17 12:59 INR 1.2 07/19/17 12:59 APTT 38 SECONDS (21-34) H 07/19/17 12:59 - Constitutional Appears: No Acute Distress - Eye Exam Eye Exam: Normal appearance - ENT Exam ENT Exam: Mucous Membranes Moist - Neck Exam Neck Exam: Full ROM - Respiratory Exam Respiratory Exam: Clear to Ausculation Bilateral. absent: Rales, Rhonchi, Wheezes - Cardiovascular Exam Cardiovascular Exam: REGULAR RHYTHM, +S1, +S2. absent: Gallop, Murmur - GI/Abdominal Exam GI & Abdominal Exam: Soft. absent: Tenderness - Extremities Exam Extremities Exam: Full ROM, Normal Capillary Refill. absent: Calf Tenderness, Joint Swelling, Pedal Edema Assessment and Plan - Assessment and Plan (Free Text) Assessment: PTB; lung mass HTN cont meds For repeat AFB
--- NOTE | 2017-08-23 17:14 | CP.PCM.PN ---
Subjective - Date & Time of Evaluation Date of Evaluation: 08/23/17 Time of Evaluation: 09:00 - Subjective Subjective: the patient seen and examined Sitting and walking without any distress Denies cough, denies fever, denies night sweats Objective - Vital Signs/Intake and Output Vital Signs (last 24 hours): Temp Pulse Resp BP Pulse Ox 98.2 F 76 20 121/72 97 08/23/17 15:45 08/23/17 15:45 08/23/17 15:45 08/23/17 15:45 08/23/17 15:45 - Medications Medications: Current Medications Ethambutol HCl (Myambutol) 1,200 mg PO DAILY [facility] Last Admin: 08/23/17 10:27 Dose: 1,200 mg Isoniazid (Niazid) 300 mg PO DAILY [facility] Last Admin: 08/23/17 10:26 Dose: 300 mg Losartan Potassium (Cozaar) 50 mg PO DAILY [facility] Last Admin: 08/23/17 10:26 Dose: 50 mg Pyrazinamide (Pyrazinamide) 1,500 mg PO DAILY [facility] Last Admin: 08/23/17 10:27 Dose: 1,500 mg Pyridoxine HCl (Vitamin B6 50 Mg Tab) 50 mg PO DAILY [facility] Last Admin: 08/23/17 10:26 Dose: 50 mg Rifampin (Rifampin Cap) 600 mg PO DAILY [facility] Last Admin: 08/23/17 10:26 Dose: 600 mg Fluticasone/Salmeterol (Advair Diskus 250/50) 1 puff INH RQ12 [facility] Last Admin: 08/23/17 08:11 Dose: Not Given - Labs Labs: 08/17/17 07:18 08/17/17 07:18 PT 13.8 SECONDS (9.7-12.2) H 07/19/17 12:59 INR 1.2 07/19/17 12:59 APTT 38 SECONDS (21-34) H 07/19/17 12:59 - Constitutional Appears: No Acute Distress - Head Exam Head Exam: ATRAUMATIC, NORMOCEPHALIC - ENT Exam ENT Exam: Mucous Membranes Moist - Neck Exam Neck Exam: Normal Inspection - Respiratory Exam Respiratory Exam: Decreased Breath Sounds - Cardiovascular Exam Cardiovascular Exam: REGULAR RHYTHM - GI/Abdominal Exam GI & Abdominal Exam: Soft, Normal Bowel Sounds - Extremities Exam Extremities Exam: Normal Inspection - Neurological Exam Neurological Exam: Alert Assessment and Plan (1) Tuberculosis Assessment & Plan: continue antituberculous medica AFB still positive when 3 AFB negative Status: Acute (2) Hemoptysis Status: Acute
[2017-08-24] MEDS: Fluticasone-Salmeterol 250-50mcg Diskus INH SCH ×2 (08:18→21:59)
--- NOTE | 2017-08-24 09:15 | CP.PCM.PN ---
Subjective - Date & Time of Evaluation Date of Evaluation: 08/24/17 Time of Evaluation: 08:25 - Subjective Subjective: Pt no CP, no SOB, no edema, (+) dry cough no n/v, no diarrhea Objective - Vital Signs/Intake and Output Vital Signs (last 24 hours): Temp Pulse Resp BP Pulse Ox 97.9 F 99 H 20 119/79 98 08/24/17 07:00 08/24/17 07:00 08/24/17 07:00 08/24/17 07:00 08/24/17 07:00 Intake and Output: 08/24/17 08/24/17 06:59 18:59 Intake Total 1400 Balance 1400 - Medications Medications: Current Medications Ethambutol HCl (Myambutol) 1,200 mg PO DAILY [facility] Last Admin: 08/23/17 10:27 Dose: 1,200 mg Isoniazid (Niazid) 300 mg PO DAILY [facility] Last Admin: 08/23/17 10:26 Dose: 300 mg Losartan Potassium (Cozaar) 50 mg PO DAILY [facility] Last Admin: 08/23/17 10:26 Dose: 50 mg Pyrazinamide (Pyrazinamide) 1,500 mg PO DAILY [facility] Last Admin: 08/23/17 10:27 Dose: 1,500 mg Pyridoxine HCl (Vitamin B6 50 Mg Tab) 50 mg PO DAILY [facility] Last Admin: 08/23/17 10:26 Dose: 50 mg Rifampin (Rifampin Cap) 600 mg PO DAILY [facility] Last Admin: 08/23/17 10:26 Dose: 600 mg Fluticasone/Salmeterol (Advair Diskus 250/50) 1 puff INH RQ12 [facility] Last Admin: 08/24/17 08:18 Dose: Not Given - Labs Labs: 08/17/17 07:18 08/17/17 07:18 PT 13.8 SECONDS (9.7-12.2) H 07/19/17 12:59 INR 1.2 07/19/17 12:59 APTT 38 SECONDS (21-34) H 07/19/17 12:59 - Constitutional Appears: No Acute Distress - Eye Exam Eye Exam: Normal appearance - ENT Exam ENT Exam: Mucous Membranes Moist - Respiratory Exam Respiratory Exam: Clear to Ausculation Bilateral. absent: Rhonchi, Wheezes - Cardiovascular Exam Cardiovascular Exam: REGULAR RHYTHM, +S1, +S2. absent: Gallop, JVD, Murmur - GI/Abdominal Exam GI & Abdominal Exam: Soft. absent: Tenderness, Mass - Extremities Exam Extremities Exam: Full ROM, Normal Capillary Refill. absent: Calf Tenderness, Joint Swelling, Pedal Edema Assessment and Plan - Assessment and Plan (Free Text) Plan: PTB; ? lung mass HTN For AFB x 3 negative Cont meds
[2017-08-25 08:00] LABS: HEMATOCRIT 39.7 % (35.0-51.0); MEAN CELL VOLUME 87.8 fL (80.0-94.0); MEAN CORPUSCULAR HEMOGLOBIN 29.6 pg (27.0-31.0); MEAN CORPUSCULAR HGB CONC 33.7 g/dL (33.0-37.0); MEAN PLATELET VOLUME 7.3 fL (7.2-11.7); RED CELL DISTRIBUTION WIDTH 14.9 % (11.5-14.5); WHITE BLOOD COUNT 7.4 K/uL (4.8-10.8)
[2017-08-25 08:13] LABS: ALB/GLOB RATIO 1.1 (1.0-2.1); ALKALINE PHOSPHATASE 86 U/L (38-126); ALT/SGPT 37 U/L (21-72); AST/SGOT 31 U/L (17-59); BILIRUBIN,TOTAL 0.4 mg/dL (0.2-1.3); BLOOD UREA NITROGEN 14 mg/dL (9-20); CALCIUM 8.5 mg/dl (8.6-10.4); CARBON DIOXIDE 27 mmol/L (22-30); CHLORIDE 102 mmol/L (98-107); GFR AFRICAN-AMERICAN > 60; GLUCOSE,RANDOM 98 mg/dL (75-110); POTASSIUM 4.1 mmol/L (3.6-5.2); SODIUM 139 mmol/L (132-148); TOTAL PROTEIN 7.7 g/dL (6.3-8.3)
--- NOTE | 2017-08-25 09:19 | CP.PCM.PN ---
Subjective - Date & Time of Evaluation Date of Evaluation: 08/25/17 Time of Evaluation: 09:12 - Subjective Subjective: Pt no complain; Had AFB given on 08/23 - still (+) AFB No cough, no CP, no SOB, no edema. Objective - Vital Signs/Intake and Output Vital Signs (last 24 hours): Temp Pulse Resp BP Pulse Ox 98.2 F 88 20 106/83 95 08/25/17 07:00 08/25/17 07:00 08/25/17 07:00 08/25/17 07:00 08/25/17 07:00 - Medications Medications: Current Medications Ethambutol HCl (Myambutol) 1,200 mg PO DAILY [facility] Last Admin: 08/24/17 09:44 Dose: 1,200 mg Isoniazid (Niazid) 300 mg PO DAILY [facility] Last Admin: 08/24/17 09:44 Dose: 300 mg Losartan Potassium (Cozaar) 50 mg PO DAILY [facility] Last Admin: 08/24/17 09:45 Dose: 50 mg Pyrazinamide (Pyrazinamide) 1,500 mg PO DAILY [facility] Last Admin: 08/24/17 09:45 Dose: 1,500 mg Pyridoxine HCl (Vitamin B6 50 Mg Tab) 50 mg PO DAILY [facility] Last Admin: 08/24/17 09:45 Dose: 50 mg Rifampin (Rifampin Cap) 600 mg PO DAILY [facility] Last Admin: 08/24/17 09:44 Dose: 600 mg Fluticasone/Salmeterol (Advair Diskus 250/50) 1 puff INH RQ12 [facility] Last Admin: 08/24/17 21:59 Dose: Not Given - Labs Labs: 08/25/17 07:27 08/25/17 07:27 PT 13.8 SECONDS (9.7-12.2) H 07/19/17 12:59 INR 1.2 07/19/17 12:59 APTT 38 SECONDS (21-34) H 07/19/17 12:59 - Constitutional Appears: No Acute Distress - Eye Exam Eye Exam: Normal appearance - ENT Exam ENT Exam: Mucous Membranes Moist - Neck Exam Neck Exam: Full ROM - Respiratory Exam Respiratory Exam: Wheezes. absent: Decreased Breath Sounds - Cardiovascular Exam Cardiovascular Exam: REGULAR RHYTHM, +S1, +S2. absent: Gallop, JVD - GI/Abdominal Exam GI & Abdominal Exam: Soft. absent: Tenderness - Extremities Exam Extremities Exam: Full ROM, Normal Capillary Refill. absent: Calf Tenderness, Joint Swelling, Pedal Edema Assessment and Plan - Assessment and Plan (Free Text) Assessment: PTB w/ persistent AFB Lung mass vs tuberculoma; HTN Wheezing Cot RIFE Cont BP meds/ Adviar
[2017-08-26] MEDS: Fluticasone-Salmeterol 250-50mcg Diskus INH SCH ×2 (10:02→21:22)
--- NOTE | 2017-08-27 08:03 | CP.PCM.PN ---
Subjective - Date & Time of Evaluation Date of Evaluation: 08/27/17 Time of Evaluation: 07:55 - Subjective Subjective: Pt no complain; walk in room No CP, no SOB, no edema, min cough (+) good appetite, no diarrhea Labs w/ normal LFT Objective - Vital Signs/Intake and Output Vital Signs (last 24 hours): Temp Pulse Resp BP Pulse Ox 97.9 F 85 20 119/80 95 08/27/17 07:53 08/27/17 07:53 08/27/17 07:53 08/27/17 07:53 08/27/17 07:53 Intake and Output: 08/27/17 08/27/17 06:59 18:59 Intake Total 100 Balance 100 - Medications Medications: Current Medications Ethambutol HCl (Myambutol) 1,200 mg PO DAILY [facility] Last Admin: 08/26/17 10:09 Dose: 1,200 mg Isoniazid (Niazid) 300 mg PO DAILY [facility] Last Admin: 08/26/17 10:10 Dose: 300 mg Losartan Potassium (Cozaar) 50 mg PO DAILY [facility] Last Admin: 08/26/17 10:09 Dose: 50 mg Pyrazinamide (Pyrazinamide) 1,500 mg PO DAILY [facility] Last Admin: 08/26/17 10:09 Dose: 1,500 mg Pyridoxine HCl (Vitamin B6 50 Mg Tab) 50 mg PO DAILY [facility] Last Admin: 08/26/17 10:09 Dose: 50 mg Rifampin (Rifampin Cap) 600 mg PO DAILY [facility] Last Admin: 08/26/17 10:09 Dose: 600 mg Fluticasone/Salmeterol (Advair Diskus 250/50) 1 puff INH RQ12 [facility] Last Admin: 08/26/17 21:22 Dose: 1 puff - Labs Labs: 08/25/17 07:27 08/25/17 07:27 PT 13.8 SECONDS (9.7-12.2) H 07/19/17 12:59 INR 1.2 07/19/17 12:59 APTT 38 SECONDS (21-34) H 07/19/17 12:59 - Constitutional Appears: Younger Than Stated Age - Eye Exam Eye Exam: Normal appearance - ENT Exam ENT Exam: Mucous Membranes Moist - Neck Exam Neck Exam: Full ROM. absent: Lymphadenopathy, Thyromegaly - Respiratory Exam Respiratory Exam: Clear to Ausculation Bilateral. absent: Rhonchi, Wheezes - Cardiovascular Exam Cardiovascular Exam: Gallop, REGULAR RHYTHM, +S1, +S2. absent: JVD - GI/Abdominal Exam GI & Abdominal Exam: Soft. absent: Tenderness, Mass - Extremities Exam Extremities Exam: Full ROM, Normal Capillary Refill. absent: Calf Tenderness, Joint Swelling, Pedal Edema Assessment and Plan - Assessment and Plan (Free Text) Assessment: PTB/ lung mass?? HTN Cont meds/rehab
[2017-08-27] MEDS: Fluticasone-Salmeterol 250-50mcg Diskus INH SCH ×2 (08:16→19:18)
[2017-08-28] MEDS: Fluticasone-Salmeterol 250-50mcg Diskus INH SCH ×2 (08:01→20:10)
[2017-08-29] MEDS: Fluticasone-Salmeterol 250-50mcg Diskus INH SCH (08:16)
--- NOTE | 2017-08-29 14:57 | CP.PCM.PN ---
Subjective - Date & Time of Evaluation Date of Evaluation: 08/29/17 Time of Evaluation: 09:00 - Subjective Subjective: rx in progress await 3 neg sputum Objective - Vital Signs/Intake and Output Vital Signs (last 24 hours): Temp Pulse Resp BP Pulse Ox 98.0 F 73 20 134/83 98 08/29/17 08:28 08/29/17 08:28 08/29/17 08:28 08/29/17 08:28 08/29/17 08:28 Intake and Output: 08/29/17 08/29/17 06:59 18:59 Intake Total 300 Balance 300 - Medications Medications: Current Medications Ethambutol HCl (Myambutol) 1,200 mg PO DAILY [facility] Last Admin: 08/29/17 11:15 Dose: 1,200 mg Isoniazid (Niazid) 300 mg PO DAILY [facility] Last Admin: 08/29/17 11:16 Dose: 300 mg Losartan Potassium (Cozaar) 50 mg PO DAILY [facility] Last Admin: 08/29/17 11:16 Dose: 50 mg Pyrazinamide (Pyrazinamide) 1,500 mg PO DAILY [facility] Last Admin: 08/29/17 11:16 Dose: 1,500 mg Pyridoxine HCl (Vitamin B6 50 Mg Tab) 50 mg PO DAILY [facility] Last Admin: 08/29/17 11:16 Dose: 50 mg Rifampin (Rifampin Cap) 600 mg PO DAILY [facility] Last Admin: 08/29/17 11:15 Dose: 600 mg Fluticasone/Salmeterol (Advair Diskus 250/50) 1 puff INH RQ12 [facility] Last Admin: 08/29/17 08:16 Dose: 1 puff - Labs Labs: 08/25/17 07:27 08/25/17 07:27 PT 13.8 SECONDS (9.7-12.2) H 07/19/17 12:59 INR 1.2 07/19/17 12:59 APTT 38 SECONDS (21-34) H 07/19/17 12:59 - Constitutional Appears: Non-toxic, Chronically Ill - Head Exam Head Exam: NORMOCEPHALIC - Eye Exam Eye Exam: PERRL - ENT Exam ENT Exam: Mucous Membranes Dry - Neck Exam Neck Exam: absent: Lymphadenopathy - Respiratory Exam Respiratory Exam: Decreased Breath Sounds - Cardiovascular Exam Cardiovascular Exam: REGULAR RHYTHM - GI/Abdominal Exam GI & Abdominal Exam: Distended, Soft - Rectal Exam Rectal Exam: Deferred - Exam Exam: NORMAL INSPECTION - Extremities Exam Extremities Exam: absent: Pedal Edema - Back Exam Back Exam: absent: CVA tenderness (L), CVA tenderness (R) Assessment and Plan (1) Hemoptysis Status: Acute (2) Pneumonia Status: Acute (3) Tuberculosis Status: Acute (4) Tuberculosis Status: Acute
[2017-08-30] MEDS: Fluticasone-Salmeterol 250-50mcg Diskus INH SCH ×2 (08:07→21:25)
--- NOTE | 2017-08-30 14:08 | CP.PCM.PN ---
Subjective - Date & Time of Evaluation Date of Evaluation: 08/30/17 - Subjective Subjective: Patient seen and examined. Patient says that he is physically feeling well but is struggling mentally due to long hospital stay. Per nursing patient expressed S/I earlier and is on watch now. Patient currently denies S/I. Patient says his appetite is good, and he is sleeping well. Patient denies any medication side effects. Patient denies fevers, chills, shortness of breath, chest pain, abdominal pain, diarrhea, constipation and dysuria. Objective - Vital Signs/Intake and Output Vital Signs (last 24 hours): Temp Pulse Resp BP Pulse Ox 98.1 F 87 20 143/81 96 08/30/17 08:18 08/30/17 08:18 08/30/17 08:18 08/30/17 08:18 08/30/17 08:18 Intake and Output: 08/30/17 08/30/17 06:59 18:59 Intake Total 300 Balance 300 - Medications Medications: Current Medications Ethambutol HCl (Myambutol) 1,200 mg PO DAILY [facility] Last Admin: 08/30/17 09:50 Dose: 1,200 mg Isoniazid (Niazid) 300 mg PO DAILY [facility] Last Admin: 08/30/17 09:50 Dose: 300 mg Losartan Potassium (Cozaar) 50 mg PO DAILY [facility] Last Admin: 08/30/17 09:50 Dose: 50 mg Pyrazinamide (Pyrazinamide) 1,500 mg PO DAILY [facility] Last Admin: 08/30/17 09:50 Dose: 1,500 mg Pyridoxine HCl (Vitamin B6 50 Mg Tab) 50 mg PO DAILY [facility] Last Admin: 08/30/17 09:50 Dose: 50 mg Rifampin (Rifampin Cap) 600 mg PO DAILY [facility] Last Admin: 08/30/17 09:50 Dose: 600 mg Fluticasone/Salmeterol (Advair Diskus 250/50) 1 puff INH RQ12 [facility] Last Admin: 08/30/17 08:07 Dose: 1 puff - Labs Labs: 08/25/17 07:27 08/25/17 07:27 PT 13.8 SECONDS (9.7-12.2) H 07/19/17 12:59 INR 1.2 07/19/17 12:59 APTT 38 SECONDS (21-34) H 07/19/17 12:59 - Constitutional Appears: Well, Non-toxic - Head Exam Head Exam: ATRAUMATIC, NORMOCEPHALIC - Eye Exam Eye Exam: EOMI, Normal appearance - Neck Exam Neck Exam: Full ROM, Normal Inspection - Respiratory Exam Respiratory Exam: Clear to Ausculation Bilateral, NORMAL BREATHING PATTERN - Cardiovascular Exam Cardiovascular Exam: REGULAR RHYTHM Assessment and Plan (1) Tuberculosis Status: Acute (2) Hemoptysis Status: Acute
--- NOTE | 2017-08-30 14:25 | PCM.PSYCH ---
Initial Psychiatric Evaluation - Initial Psychiatric Evaluation Type of Admission: Voluntary Legal Status: Capacity Chief Complaint (in patient's own words): "I was anxious only" History of Present Illness and Precipitating Events: The pt is seen, chart reviewed, case discussed Consult was requested b/c of a suicide remark. He is a 62 yo [place] male, who is undocumented, with 5 children but has been away from them x12 years now. 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 He is here for TB and is awaiting clean sputums to be ms'ed. He says that he was disappointed by a positive result and felt like trapped and wished to , but adamantly denies SI or any intention/plan. He says it has passed now and he feels less anxious and not depressed. He says he did noyt mean it when he said he wished he were . He practices relaxation exercises daily No manic or psychotic sxs elicited He is future oriented, looking forward to go home and reunite with family No past medical orpsych hx No family psych hx Current Medications: Active Medications Generic Name Dose Route Start Last Admin Trade Name Freq PRN Reason Stop Dose Admin Ethambutol HCl 1,200 mg 07/27/17 10:00 08/30/17 09:50 Myambutol PO 1,200 mg DAILY [facility] Administration Isoniazid 300 mg 08/20/17 10:00 08/30/17 09:50 Niazid PO 300 mg DAILY [facility] Administration Losartan Potassium 50 mg 07/20/17 10:00 08/30/17 09:50 Cozaar PO 50 mg DAILY [facility] Administration Pyrazinamide 1,500 mg 07/27/17 10:00 08/30/17 09:50 Pyrazinamide PO 1,500 mg DAILY [facility] Administration Pyridoxine HCl 50 mg 07/30/17 10:00 08/30/17 09:50 Vitamin B6 50 Mg Tab PO 50 mg DAILY [facility] Administration Rifampin 600 mg 07/21/17 10:00 08/30/17 09:50 Rifampin Cap PO 600 mg DAILY [facility] Administration Fluticasone/Salmeterol 1 puff 07/29/17 20:00 08/30/17 08:07 Advair Diskus 250/50 INH 1 puff RQ12 [facility] Administration Past Psychiatric History - Past Psychiatric History Previous Treatment History: None Pertinent Medical Hx (Current Medical&Sleep Prob, Allergies): Allergies Allergy/AdvReac Type Severity Reaction Status Date / Time No Known Allergies Allergy Verified 07/19/17 12:03 Losartan [Cozaar] 50 mg PO DAILY 07/19/17 Review of Systems - Psychiatric Psychiatric: Anxiety. absent: Hallucinations, Homicidal Ideation, Suicidal Ideation Mental Status Examination - Personal Presentation Personal Presentation: Looks stated age - Affect Affect: Constricted - Motor Activity Motor Activity: Calm - Reliability in Providing Information Reliability in Providing Information: Good - Speech Speech: Organized - Mood Mood: Anxious - Formal Thought Process Formal Thought Process: No Impairment - Cognitive Functions Orientation: Person, Place, Situation, Time Sensorium: Alert Attention/Concentration: Attentive Estimate of Intelligence: Average Judgement: Intact, as evidence by: Insight regarding need for hospitalization Memory: Recent intact, as evidence by: Ability to recall events of the day, Remote intact, as evidenced by: Abilit to recall sig. life events - Risk Risk: Diminished functioning - Strength & Assets Inventory Strength & Assets Inventory: Cooperative - Limitations Limitations: Living alone DSM 5 DX - DSM 5 DSM 5 Diagnosis: Adjustment d/o - with anxiety - Recommended/Plan of Treatment Treatment Recommendations and Plan of Treatment: No need for standing psych meds prn ativan No need for 1:1 contracts for safety Support and psyhoed Psych will sign off
[2017-08-31] MEDS: Fluticasone-Salmeterol 250-50mcg Diskus INH SCH ×2 (08:08→19:55)
--- NOTE | 2017-08-31 10:02 | CP.PCM.PN ---
Subjective - Date & Time of Evaluation Date of Evaluation: 08/31/17 Time of Evaluation: 09:30 - Subjective Subjective: Pt no complain; very frustrated c/o always (+) No CP, no SOB, no edema, (+) very min cough Objective - Vital Signs/Intake and Output Vital Signs (last 24 hours): Temp Pulse Resp BP Pulse Ox 98.0 F 79 20 116/78 96 08/31/17 08:48 08/31/17 08:48 08/31/17 08:48 08/31/17 08:48 08/31/17 08:48 - Medications Medications: Current Medications Ethambutol HCl (Myambutol) 1,200 mg PO DAILY [facility] Last Admin: 08/30/17 09:50 Dose: 1,200 mg Isoniazid (Niazid) 300 mg PO DAILY [facility] Last Admin: 08/30/17 09:50 Dose: 300 mg Lorazepam (Ativan) 0.5 mg PO Q6H PRN PRN Reason: Anxiety Losartan Potassium (Cozaar) 50 mg PO DAILY [facility] Last Admin: 08/30/17 09:50 Dose: 50 mg Pyrazinamide (Pyrazinamide) 1,500 mg PO DAILY [facility] Last Admin: 08/30/17 09:50 Dose: 1,500 mg Pyridoxine HCl (Vitamin B6 50 Mg Tab) 50 mg PO DAILY [facility] Last Admin: 08/30/17 09:50 Dose: 50 mg Rifampin (Rifampin Cap) 600 mg PO DAILY [facility] Last Admin: 08/30/17 09:50 Dose: 600 mg Fluticasone/Salmeterol (Advair Diskus 250/50) 1 puff INH RQ12 [facility] Last Admin: 08/31/17 08:08 Dose: 1 puff - Labs Labs: 08/25/17 07:27 08/25/17 07:27 PT 13.8 SECONDS (9.7-12.2) H 07/19/17 12:59 INR 1.2 07/19/17 12:59 APTT 38 SECONDS (21-34) H 07/19/17 12:59 - Constitutional Appears: Well - Eye Exam Eye Exam: Normal appearance - ENT Exam ENT Exam: Mucous Membranes Moist - Neck Exam Neck Exam: Full ROM. absent: Lymphadenopathy, Thyromegaly - Respiratory Exam Respiratory Exam: Clear to Ausculation Bilateral. absent: Decreased Breath Sounds, Rales, Rhonchi, Wheezes - Cardiovascular Exam Cardiovascular Exam: REGULAR RHYTHM, +S1, +S2. absent: Gallop, JVD - GI/Abdominal Exam GI & Abdominal Exam: Soft. absent: Tenderness - Extremities Exam Extremities Exam: Full ROM, Normal Capillary Refill. absent: Calf Tenderness, Joint Swelling, Pedal Edema Assessment and Plan - Assessment and Plan (Free Text) Assessment: PTB w/ ? lung mass - likely tuberculoma HTN adjustment disorder Discuss w/ patient - will be patient Cont meds
[2017-09-01 01:16] VITALS: RESP 20
[2017-09-01] MEDS: Fluticasone-Salmeterol 250-50mcg Diskus INH SCH (08:05)
--- NOTE | 2017-09-01 08:56 | CP.PCM.PN ---
Subjective - Date & Time of Evaluation Date of Evaluation: 09/01/17 Time of Evaluation: 08:15 - Subjective Subjective: Pt no complain; (+) min cough NO CP, no SOB, no edema, no diarrhea, no n/v (+) AFB negative x 3 Objective - Vital Signs/Intake and Output Vital Signs (last 24 hours): Temp Pulse Resp BP Pulse Ox 97.8 F 74 20 113/71 95 08/31/17 23:20 08/31/17 23:20 08/31/17 23:20 08/31/17 23:20 08/31/17 23:20 Intake and Output: 09/01/17 09/01/17 06:59 18:59 Intake Total 400 Balance 400 - Medications Medications: Current Medications Ethambutol HCl (Myambutol) 1,200 mg PO DAILY [facility] Last Admin: 08/31/17 10:33 Dose: 1,200 mg Isoniazid (Niazid) 300 mg PO DAILY [facility] Last Admin: 08/31/17 10:33 Dose: 300 mg Lorazepam (Ativan) 0.5 mg PO Q6H PRN PRN Reason: Anxiety Losartan Potassium (Cozaar) 50 mg PO DAILY [facility] Last Admin: 08/31/17 10:33 Dose: 50 mg Pyrazinamide (Pyrazinamide) 1,500 mg PO DAILY [facility] Last Admin: 08/31/17 10:33 Dose: 1,500 mg Pyridoxine HCl (Vitamin B6 50 Mg Tab) 50 mg PO DAILY [facility] Last Admin: 08/31/17 10:33 Dose: 50 mg Rifampin (Rifampin Cap) 600 mg PO DAILY [facility] Last Admin: 08/31/17 10:33 Dose: 600 mg Fluticasone/Salmeterol (Advair Diskus 250/50) 1 puff INH RQ12 [facility] Last Admin: 08/31/17 19:55 Dose: 1 puff - Labs Labs: 08/25/17 07:27 08/25/17 07:27 PT 13.8 SECONDS (9.7-12.2) H 07/19/17 12:59 INR 1.2 07/19/17 12:59 APTT 38 SECONDS (21-34) H 07/19/17 12:59 - Head Exam Head Exam: NORMAL INSPECTION - Eye Exam Eye Exam: Normal appearance - ENT Exam ENT Exam: Mucous Membranes Moist - Respiratory Exam Respiratory Exam: Clear to Ausculation Bilateral. absent: Rales, Rhonchi, Wheezes - Cardiovascular Exam Cardiovascular Exam: REGULAR RHYTHM, +S1, +S2. absent: Gallop - GI/Abdominal Exam GI & Abdominal Exam: Soft, Normal Bowel Sounds. absent: Tenderness - Extremities Exam Extremities Exam: Full ROM, Normal Capillary Refill. absent: Calf Tenderness, Joint Swelling, Pedal Edema Assessment and Plan - Assessment and Plan (Free Text) Assessment: PTB ew/ large tubrculoma?? HTN D/C airborne isolation Recall Pulmonary for ? bronchoscopy For [place] x 2 mths and then [place] x 6 mths Cont Losartan
--- NOTE | 2017-09-01 13:18 | CT ---
CT chest without IV contrast Indication: follow up cavitation . dx TB Technique: Contiguous axial images were obtained through the chest without intravenous contrast enhancement. Sagittal and coronal reconstructions were generated and reviewed. This CT exam was performed using 1 or more of the falling dose reduction techniques: Automated exposure control, adjustment of the MAA and/or kV according to patient size, and/or use of iterative reconstruction technique. Radiation dose (DLP): 238.87 MGy-cm. Comparison: CT chest without contrast performed 08/06/17 Findings: Visualized portions of the inferior thyroid gland appear unremarkable. The unenhanced mediastinal and hilar vascular structures appear grossly unremarkable. The heart appears within normal limits of size. 8 mm pretracheal lymph node. 11 mm precarinal lymph node. Right lung apex cavitary mass re-identified, grossly stable as compared to prior study. Sub cm satellite nodules re-identified with additional nodular infiltrates involving the left lung apex and superior segments of bilateral lower lobes. Left lung apex nodule contains calcifications. No pleural effusion. No pneumothorax. Limited visualization of the noncontrast upper abdomen demonstrates cholelithiasis. No acute osseous abnormality is detected. Impression: No significant interval change appreciated with right lung apex cavitary mass. Several sub cm satellite nodules and nodular infiltrates noted involving both the left and right lung apices and superior segments of bilateral lower lobes. Additional findings as above.
--- NOTE | 2017-09-01 15:04 | CP.PCM.PN ---
Subjective - Date & Time of Evaluation Date of Evaluation: 09/01/17 Time of Evaluation: 12:40 - Subjective Subjective: patient seen and examined Sitting comfortably in no acute distress Denies cough, denies fever chills, denies hemoptysis Good appetite AFB 3 negative A repeat CAT scan of the chest noted Follow-up in the office If there is no change in size of nodules will consider bronchoscopy biopsy or CT -guided biopsy Objective - Vital Signs/Intake and Output Vital Signs (last 24 hours): Temp Pulse Resp BP Pulse Ox 98.9 F 106 H 20 121/79 96 09/01/17 09:07 09/01/17 09:07 09/01/17 09:07 09/01/17 09:07 09/01/17 09:07 Intake and Output: 09/01/17 09/01/17 06:59 18:59 Intake Total 400 Balance 400 - Medications Medications: Current Medications Ethambutol HCl (Myambutol) 1,200 mg PO DAILY [facility] Last Admin: 09/01/17 10:14 Dose: 1,200 mg Isoniazid (Niazid) 300 mg PO DAILY [facility] Last Admin: 09/01/17 10:14 Dose: 300 mg Lorazepam (Ativan) 0.5 mg PO Q6H PRN PRN Reason: Anxiety Losartan Potassium (Cozaar) 50 mg PO DAILY [facility] Last Admin: 09/01/17 10:15 Dose: 50 mg Pyrazinamide (Pyrazinamide) 1,500 mg PO DAILY [facility] Last Admin: 09/01/17 10:14 Dose: 1,500 mg Pyridoxine HCl (Vitamin B6 50 Mg Tab) 50 mg PO DAILY [facility] Last Admin: 09/01/17 10:14 Dose: 50 mg Rifampin (Rifampin Cap) 600 mg PO DAILY [facility] Last Admin: 09/01/17 10:14 Dose: 600 mg Fluticasone/Salmeterol (Advair Diskus 250/50) 1 puff INH RQ12 [facility] Last Admin: 09/01/17 08:05 Dose: 1 puff - Labs Labs: 08/25/17 07:27 08/25/17 07:27 PT 13.8 SECONDS (9.7-12.2) H 07/19/17 12:59 INR 1.2 07/19/17 12:59 APTT 38 SECONDS (21-34) H 07/19/17 12:59 Assessment and Plan (1) Tuberculosis Status: Acute (2) Hemoptysis Status: Acute
[2017-09-01] MEDS ORDERED: Influenza Vaccine 60 mcg/0.5 mL SYR (4YR UP) IM ONE (15:44)
[2017-09-01] MEDS ORDERED: Pneumococcal 23-Valent Vaccine IM ONE (15:44)
--- NOTE | 2017-09-01 15:58 | CP.PCM.PN ---
Subjective - Date & Time of Evaluation Date of Evaluation: 09/01/17 Time of Evaluation: 15:00 - Subjective Subjective: [employer] NOT[employer] Patient seen today , denies any complaints a fib x [address] scan done today Objective - Vital Signs/Intake and Output Vital Signs (last 24 hours): Temp Pulse Resp BP Pulse Ox 98.9 F 106 H 20 121/79 96 09/01/17 09:07 09/01/17 09:07 09/01/17 09:07 09/01/17 09:07 09/01/17 09:07 Intake and Output: 09/01/17 09/01/17 06:59 18:59 Intake Total 400 Balance 400 - Medications Medications: Current Medications Ethambutol HCl (Myambutol) 1,200 mg PO DAILY [facility] Last Admin: 09/01/17 10:14 Dose: 1,200 mg Isoniazid (Niazid) 300 mg PO DAILY [facility] Last Admin: 09/01/17 10:14 Dose: 300 mg Lorazepam (Ativan) 0.5 mg PO Q6H PRN PRN Reason: Anxiety Losartan Potassium (Cozaar) 50 mg PO DAILY [facility] Last Admin: 09/01/17 10:15 Dose: 50 mg Pyrazinamide (Pyrazinamide) 1,500 mg PO DAILY [facility] Last Admin: 09/01/17 10:14 Dose: 1,500 mg Pyridoxine HCl (Vitamin B6 50 Mg Tab) 50 mg PO DAILY [facility] Last Admin: 09/01/17 10:14 Dose: 50 mg Rifampin (Rifampin Cap) 600 mg PO DAILY [facility] Last Admin: 09/01/17 10:14 Dose: 600 mg Fluticasone/Salmeterol (Advair Diskus 250/50) 1 puff INH RQ12 [facility] Last Admin: 09/01/17 08:05 Dose: 1 puff - Labs Labs: 08/25/17 07:27 08/25/17 07:27 PT 13.8 SECONDS (9.7-12.2) H 07/19/17 12:59 INR 1.2 07/19/17 12:59 APTT 38 SECONDS (21-34) H 07/19/17 12:59 Assessment and Plan - Assessment and Plan (Free Text) Assessment: A/P 62 yr old male + AFB and treated and repeat afb negative repeat CT DONE today - seen by Dr. Rebolledo cleared for discharge from pulmonary stand point and f/u out pt seen by Jf HINOJOSA from TB clinic and all prescriptions given d/w Dr. Dyer stable for discharge home today As per CM she contacted TB clinic and made aware of discharge plan Discharge plan discussed with patient , who understands and agrees with plan patient instructed to returns to ED if symptoms returns
[2017-09-01 16:28] VITALS: BP 169/92; PULSE 92; TEMP 97.8; O2SAT 95
--- NOTE | 2017-09-09 08:57 | CP.PCM.DIS ---
Provider - Provider Date of Admission: 07/19/17 18:32 CC: Coughing out blood 62 y/o male with HTN and ? allegic Rhinitis. Patient has cough x > 3 mths. Refuse CXR c/o do not believed he has any ungproblem. Patient 2 days noted coughing blood. He was sen in ER and noted ? lung mass and cavity. Pt was admitted and place on isolation. Attending physician: Mal Dyer MD Time Spent in preparation of Discharge (in minutes): 15 Hospital Course - Lab Results Lab Results: Micro Results 08/24/17 13:16 Other: Please Indicate Mycobacterial Culture - Preliminary 08/31/17 09:45 Other: Please Indicate Mycobacterial Culture - Preliminary 08/23/17 06:05 Other: Please Indicate Mycobacterial Culture - Preliminary 08/30/17 08:47 Other: Please Indicate Mycobacterial Culture - Preliminary 08/29/17 08:47 Other: Please Indicate Mycobacterial Culture - Preliminary 08/28/17 09:28 Other: Please Indicate Mycobacterial Culture - Preliminary 08/21/17 08:42 Other: Please Indicate Mycobacterial Culture - Preliminary 08/14/17 10:18 Other: Please Indicate Mycobacterial Culture - Preliminary 08/20/17 06:42 Other: Please Indicate Mycobacterial Culture - Preliminary 08/27/17 11:55 Other: Please Indicate Mycobacterial Culture - Preliminary 08/19/17 10:56 Other: Please Indicate Mycobacterial Culture - Preliminary 08/16/17 10:04 Other: Please Indicate Mycobacterial Culture - Final 08/15/17 10:18 Other: Please Indicate Mycobacterial Culture - Final 08/13/17 09:34 Other: Please Indicate Mycobacterial Culture - Final 08/11/17 09:23 Other: Please Indicate Mycobacterial Culture - Final 09/01/17 06:00 Other: Please Indicate Mycobacterial Culture - Preliminary 08/17/17 11:55 Other: Please Indicate Mycobacterial Culture - Preliminary 08/09/17 Unknown Other: Please Indicate Mycobacterial Culture - Preliminary 08/08/17 Unknown Other: Please Indicate Mycobacterial Culture - Final 08/07/17 Unknown Other: Please Indicate Mycobacterial Culture - Final 08/04/17 08:08 Other: Please Indicate Mycobacterial Culture - Final 08/02/17 09:49 Other: Please Indicate Mycobacterial Culture - Final 07/31/17 11:36 Other: Please Indicate Mycobacterial Culture - Final 07/30/17 09:37 Other: Please Indicate Mycobacterial Culture - Final 07/26/17 09:11 Other: Please Indicate Mycobacterial Culture - Final 07/28/17 07:49 Other: Please Indicate Mycobacterial Culture - Final 07/20/17 09:47 Other: Please Indicate Mycobacterial Culture - Final 07/20/17 09:10 Other: Please Indicate Mycobacterial Culture - Final 07/20/17 01:17 Other: Please Indicate Mycobacterial Culture - Final 07/19/17 12:40 Blood Blood Culture - Final NO GROWTH AFTER 5 DAYS 07/19/17 12:40 Blood Gram Stain - Final TEST NOT PERFORMED 07/19/17 13:10 Blood Blood Culture - Final NO GROWTH AFTER 5 DAYS 07/19/17 13:10 Blood Gram Stain - Final TEST NOT PERFORMED 07/19/17 Unknown Urine Urine Culture - Final No Growth (<1,000 CFU/ML) Most Recent Lab Values WBC 7.4 K/uL (4.8-10.8) 08/25/17 07:27 RBC 4.52 Mil/uL (4.40-5.90) 08/25/17 07:27 Hgb 13.4 g/dL (12.0-18.0) 08/25/17 07:27 Hct 39.7 % (35.0-51.0) 08/25/17 07:27 MCV 87.8 fL (80.0-94.0) 08/25/17 07:27 MCH 29.6 pg (27.0-31.0) 08/25/17 07:27 MCHC 33.7 g/dL (33.0-37.0) 08/25/17 07:27 RDW 14.9 % (11.5-14.5) H 08/25/17 07:27 Plt Count 361 K/uL (130-400) 08/25/17 07:27 MPV 7.3 fL (7.2-11.7) 08/25/17 07:27 Neut % (Auto) 70.6 % (50.0-75.0) 08/17/17 07:18 Lymph % (Auto) 13.4 % (20.0-40.0) L 08/17/17 07:18 [place] % (Auto) 11.2 % (0.0-10.0) H 08/17/17 07:18 Eos % (Auto) 3.9 % (0.0-4.0) 08/17/17 07:18 Baso % (Auto) 0.9 % (0.0-2.0) 08/17/17 07:18 Neut # 5.5 K/uL (1.8-7.0) 08/17/17 07:18 Lymph # 1.1 K/uL (1.0-4.3) 08/17/17 07:18 [place] # 0.9 K/uL (0.0-0.8) H 08/17/17 07:18 Eos # 0.3 K/uL (0.0-0.7) 08/17/17 07:18 Baso # 0.1 K/uL (0.0-0.2) 08/17/17 07:18 Neutrophils % (Manual) 88 % (50-75) H 07/21/17 08:35 Band Neutrophils % 1 % (0-2) 07/21/17 08:35 Lymphocytes % (Manual) 7 % (20-40) L 07/21/17 08:35 Monocytes % (Manual) 3 % (0-10) 07/21/17 08:35 Basophils % (Manual) 1 % (0-2) 07/21/17 08:35 Platelet Estimate Normal (NORMAL) 07/21/17 08:35 RBC Morphology Normal 07/21/17 08:35 PT 13.8 SECONDS (9.7-12.2) H 07/19/17 12:59 INR 1.2 07/19/17 12:59 APTT 38 SECONDS (21-34) H 07/19/17 12:59 pO2 31 mm/Hg (30-55) 07/19/17 17:20 VBG pH 7.36 (7.32-7.43) 07/19/17 17:20 VBG pCO2 43 mmHg (40-60) 07/19/17 17:20 VBG HCO3 22.8 mmol/L 07/19/17 17:20 VBG Total CO2 25.6 mmol/L (22-28) 07/19/17 17:20 VBG O2 Sat (Calc) 67.3 % (40-65) H 07/19/17 17:20 VBG Base Excess -1.3 mmol/L (0.0-2.0) L 07/19/17 17:20 VBG Potassium 3.3 mmol/L (3.6-5.2) L 07/19/17 17:20 Sodium 138.0 mmol/l (132-148) 07/19/17 17:20 Chloride 106.0 mmol/L (98-107) 07/19/17 17:20 Glucose 112 mg/dl (75-110) H 07/19/17 17:20 Lactate 1.5 mmol/L (0.7-2.1) 07/19/17 17:20 Sodium 139 mmol/L (132-148) 08/25/17 07:27 Potassium 4.1 mmol/L (3.6-5.2) 08/25/17 07:27 Chloride 102 mmol/L (98-107) 08/25/17 07:27 Carbon Dioxide 27 mmol/L (22-30) 08/25/17 07:27 Anion Gap 14 (10-20) 08/25/17 07:27 BUN 14 mg/dL (9-20) 08/25/17 07:27 Creatinine 1.0 mg/dL (0.8-1.5) 08/25/17 07:27 Est GFR ( Amer) > 60 08/25/17 07:27 Est GFR (Non-Af Amer) > 60 08/25/17 07:27 Random Glucose 98 mg/dL (75-110) 08/25/17 07:27 Uric Acid 9.2 mg/dL (3.5-8.5) H 07/27/17 08:00 Calcium 8.5 mg/dl (8.6-10.4) L 08/25/17 07:27 Phosphorus 1.4 mg/dL (2.5-4.5) L 07/19/17 12:59 Magnesium 2.0 mg/dL (1.6-2.3) 07/24/17 07:46 Total Bilirubin 0.4 mg/dL (0.2-1.3) 08/25/17 07:27 AST 31 U/L (17-59) 08/25/17 07:27 ALT 37 U/L (21-72) 08/25/17 07:27 Alkaline Phosphatase 86 U/L (38-126) 08/25/17 07:27 Troponin I < 0.0120 ng/mL (0.00-0.120) 07/19/17 12:59 NT-Pro-B Natriuret Pep 249 pg/mL (0-900) 07/19/17 12:59 Total Protein 7.7 g/dL (6.3-8.3) 08/25/17 07:27 Albumin 4.0 g/dL (3.5-5.0) 08/25/17 07:27 Globulin 3.7 gm/dL (2.2-3.9) 08/25/17 07:27 Albumin/Globulin Ratio 1.1 (1.0-2.1) 08/25/17 07:27 Procalcitonin 0.56 NG/ML (0.19-0.49) H 07/20/17 11:49 Venous Blood Potassium 3.3 mmol/L (3.6-5.2) L 07/19/17 17:20 Urine Color Straw (YELLOW) 07/19/17 14:42 Urine Clarity Clear (Clear) 07/19/17 14:42 Urine pH 5.0 (5.0-8.0) 07/19/17 14:42 Ur Specific [place] 1.005 (1.003-1.030) 07/19/17 14:42 Urine Protein Negative mg/dL (NEGATIVE) 07/19/17 14:42 Urine Glucose (UA) Normal mg/dL (Normal) 07/19/17 14:42 Urine Ketones Negative mg/dL (NEGATIVE) 07/19/17 14:42 Urine Blood 1+ (NEGATIVE) H 07/19/17 14:42 Urine Nitrate Negative (NEGATIVE) 07/19/17 14:42 Urine Bilirubin Negative (NEGATIVE) 07/19/17 14:42 Urine Urobilinogen Normal mg/dL (0.2-1.0) 07/19/17 14:42 Ur Leukocyte Esterase Neg Abel/uL (Negative) 07/19/17 14:42 Urine RBC (Auto) 1 /hpf (0-3) 07/19/17 14:42 Calcium Oxalate Crystal Occ /hpf (<OCC) H 07/19/17 14:42 Hyaline Casts 0-2 /lpf (0-2) 07/19/17 14:42 HIV 1&2 Antibody Screen Negative (NEGATIVE) 08/08/17 07:29 Influenza Typ A,B (EIA) Negative for flu a/b (NEGATIVE) 07/19/17 12:46 H.influenzae Type B Ag Not required (NEGATIVE) 07/21/17 03:30 Ur L.pneumophila Ag Negative (NEGATIVE) 07/20/17 11:49 Mycoplasma pneumon IgG 2.02 (<=0.90) H 07/20/17 11:46 Mycoplasma pneumon IgM 28 U/mL (<770) 07/20/17 11:46 N.meningitidis ACY/W135 Not required (NEGATIVE) 07/21/17 03:30 N.meningi B/E.coli K1 Ag Not required (NEGATIVE) 07/21/17 03:30 Group B Strep Antigen Not required (NEGATIVE) 07/21/17 03:30 S. pneumoniae Antigen Negative (NEGATIVE) 07/21/17 03:30 TB Test (QFT) Nil 0.92 IU/mL 07/20/17 11:46 TB Test Mitogen - Nil 0.56 IU/mL 07/20/17 11:46 TB Test TB - Nil 0.02 IU/mL 07/20/17 11:46 TB Test (QFT) Negative (Negative) 07/20/17 11:46 - Hospital Course Hospital Course: Pt admitted for Pneumonia and PTB. Patient place on 2 wks antibiotic and 4 antiTB meds. Pt sputum was (+) and persistent to about [address] showed ? lung mass and was referred to pulmonary and ID. Pt also referred to [facility]. Pt improve w/ meds but had persist AFB (+). Isolation was stop when neg AFB x 3. Pt initially was for bronschopy but later change his mind. Pt discharge markedly improve. Discharge Exam - Head Exam Head Exam: NORMAL INSPECTION - Eye Exam Eye Exam: Normal appearance - ENT Exam ENT Exam: Mucous Membranes Moist - Neck Exam Neck exam: Full Rom, Normal Inspection - Respiratory Exam Respiratory Exam: Decreased Breath Sounds. absent: Rales, Rhonchi, Wheezes, Respiratory Distress - Cardiovascular Exam Cardiovascular Exam: REGULAR RHYTHM, +S1, +S2. absent: Gallop, JVD, Systolic Murmur - GI/Abdominal Exam GI & Abdominal Exam: Soft. absent: Hernia, Rigid, Tenderness - Extremities Exam Extremities exam: full ROM, normal capillary refill, pedal pulses present Discharge Plan - Discharge Medications Prescriptions: Ethambutol [Myambutol] 1,200 mg PO DAILY #30 tab Isoniazid [Niazid] 300 mg PO DAILY #30 tab Pyrazinamide 1,500 mg PO DAILY #30 tab rifAMPin [Rifampin Cap] 600 mg PO DAILY #30 cap Pyridoxine [Vitamin B6 50 mg Tab] 50 mg PO DAILY #30 tab - Follow Up Plan Condition: STABLE Disposition: HOME/ ROUTINE Instructions: Pyridoxine (Vitamin B-6) (By mouth), Rifampin/Isoniazid (By mouth ), Ethambutol (By mouth), Isoniazid (By mouth), Tuberculosis (DC), Community Acquired Pneumonia (DC), Bacterial Pneumonia (DC) Additional Instructions: PLEASE F/U WITH TB CLININC TOMORROW PLEASE F/U WITH DR. CHRISTOPHER OFFICE - CALL AN [facility] APPOINTMENT P[LEASE DO CT SCAN OF CHEST IN 3 MONTHS PLEASE CONTINUE MEDICATION PER MED. REC. ( TB CLINIC WILL PROVIDE YOUR MEDICATION )
== END 2017-09-01 16:58 | disposition home or self-care (01) | DRG 177 ==
LOC: C.ER 11:46 → C.9E 18:32 → C.5S 22:00
PROVIDERS: ADMIT Internal Medicine; ATTEND Internal Medicine
DX: A15.7 Primary respiratory tuberculosis (principal); J18.9 Pneumonia, unspecified organism; R04.2 Hemoptysis; K80.20 Calculus of gallbladder without cholecystitis without obstruction; F43.22 Adjustment disorder with anxiety; I10 Essential (primary) hypertension; J45.909 Unspecified asthma, uncomplicated; Z78.9 Other specified health status; Z87.891 Personal history of nicotine dependence

== ENCOUNTER 2017-10-27 10:20 | Emergency (ER) | payer MEDICAID, OTHER ==
[2017-10-27 10:42] VITALS: PULSE 91; RESP 18
--- NOTE | 2017-10-27 12:22 | C.PDOC ---
History Of Present Illness 62 y/o male with PMHx of TB presents to ED with complaints of loose stool for 5 days. Patient states he has had x4 bowel movements since earlier this morning and it is interfering with work which prompted visit to ED. Patient reports he is compliant with chronic medication including isoniazid and rifampin since August. denies fever, abdominal pain, weakness, blood in stool, back pain, nausea, vomiting or any other complaints at this time. Time Seen by Provider: 10/27/17 11:41 Chief Complaint (Nursing): Abdominal Pain History Per: Patient History/Exam Limitations: no limitations Onset/Duration Of Symptoms: Days Current Symptoms Are (Timing): Still Present Past Medical History Reviewed: Historical Data, Nursing Documentation, Vital Signs Vital Signs: Last Vital Signs Temp 98.9 F 10/27/17 12:47 Pulse 91 H 10/27/17 12:47 Resp 18 10/27/17 12:47 BP 139/90 10/27/17 12:47 Pulse Ox 99 10/27/17 12:47 - Medical History PMH: Asthma, HTN Surgical History: No Surg Hx Family History: States: No Known Family Hx - Social History Hx Tobacco Use: No Hx Alcohol Use: No Hx Substance Use: No - Immunization History Hx Tetanus Toxoid Vaccination: No Hx Influenza Vaccination: No Hx Pneumococcal Vaccination: No Review Of Systems Constitutional: Negative for: Fever, Chills Gastrointestinal: Positive for: Diarrhea. Negative for: Nausea, Vomiting, Abdominal Pain Skin: Negative for: Rash Physical Exam - Physical Exam Appears: Non-toxic, No Acute Distress Skin: Warm, Dry, No Rash Head: Atraumatic, Normacephalic Eye(s): bilateral: Normal Inspection, EOMI Nose: Normal Oral Mucosa: Moist Neck: Normal ROM, Supple Chest: Symmetrical Cardiovascular: Rhythm Regular Respiratory: Normal Breath Sounds, No Accessory Muscle Use, No Rales, No Rhonchi , No Wheezing Gastrointestinal/Abdominal: Soft, No Tenderness, No Guarding, No Rebound Neurological/Psych: Oriented x3 ED Course And Treatment O2 Sat by Pulse Oximetry: 97 (RA) Pulse Ox Interpretation: Normal Progress Note: Pt was offered labs, pt notes he wants rx for diarrhea. DIscussed signs and symtpoms of concern and if symtpoms persist or worsen to return to ER. Case discussed with Dr Mallory, agreed upon plan and treatment. Disposition - Disposition Referrals: Mal Dyer MD [Staff Provider] - Disposition: HOME/ ROUTINE Disposition Time: 12:33 Condition: STABLE Additional Instructions: Follow up with primary medical doctor in 1-3 days without fail for further evaluation. Take medications as prescribed. Return to the emergency department at any time if symptoms persist or worsen. Prescriptions: Loperamide HCl/Simethicone [Imodium Multi-Symptom Rel Cplt] 1 each PO DAILY #15 tablet Instructions: Acute Diarrhea (ED) Forms: [employer] ([place]) - Clinical Impression Clinical Impression: Diarrhea - PA / [employer] / Resident Statement MD/DO has reviewed & agrees with the documentation as recorded. - Scribe Statement The provider has reviewed the documentation as recorded by the Orlando Samano All medical record entries made by the Orlando were at my direction and personally dictated by me. I have reviewed the chart and agree that the record accurately reflects my personal performance of the history, physical exam, medical decision making, and the department course for this patient. I have also personally directed, reviewed, and agree with the discharge instructions and disposition.
[2017-10-27 12:48] VITALS: BP 139/90; TEMP 98.9
[2017-10-27 13:55] VITALS: O2SAT 97
== END 2017-10-27 12:59 | disposition home or self-care (01) ==
LOC: C.ER 10:20
DX: R19.7 Diarrhea, unspecified (principal)

== ENCOUNTER 2017-11-04 11:13 | Inpatient (IN) | payer MEDICAID, OTHER ==
[2017-11-04 11:57] VITALS: BMI 22.8
--- NOTE | 2017-11-04 12:25 | C.PDOC ---
History Of Present Illness DIARRHEA, ABD PAIN, GEN WEAKNESS, CHILLS, SUBJ FEVER X 2 WEEKS. 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 +ABD BLOATING. NO COUGH, CP, SOB. CURRENTLY TX FOR TB. ADMITTED 08/2017 FOR TB. SEEN ER 10/27 FOR SAME. REFERRED FROM PMD TODAY FOR EVAL EXAM MOD DIST APPEARS ILL HEENT ANICTERIC LUNGS CTA B/L OCC EXP WHEEZE SPEAKING FULL SENTENCES NO RETRACTION ABD MILD BLOATING SOFT NT ND NO R/G REMAINDER NEG History Per: Patient History/Exam Limitations: no limitations Onset/Duration Of Symptoms: Days Current Symptoms Are (Timing): Still Present Severity: Moderate Past Medical History Reviewed: Historical Data, Nursing Documentation, Vital Signs Vital Signs: Last Vital Signs Temp 99.0 F 11/04/17 11:56 Pulse 91 H 11/04/17 11:56 Resp 18 11/04/17 11:56 BP 116/78 11/04/17 11:56 Pulse Ox 100 11/04/17 15:44 - Medical History PMH: Asthma, HTN Surgical History: No Surg Hx Family History: States: No Known Family Hx - Social History Hx Tobacco Use: No Hx Alcohol Use: No Hx Substance Use: No - Immunization History Hx Tetanus Toxoid Vaccination: Yes Hx Influenza Vaccination: Yes Hx Pneumococcal Vaccination: Yes Review Of Systems Except As Marked, All Systems Reviewed And Found Negative. Constitutional: Positive for: Fever (subjective fever), Chills, Weakness Cardiovascular: Negative for: Chest Pain Respiratory: Negative for: Cough, Shortness of Breath Gastrointestinal: Positive for: Abdominal Pain, Diarrhea Physical Exam - Physical Exam Appears: Non-toxic, Other (moderate distress,ill) Skin: Normal Color, Warm Eye(s): bilateral: Scleral Icterus Respiratory: Normal Breath Sounds, No Accessory Muscle Use, No Rales, No Rhonchi , Wheezing (occasional expiratory wheezing), Other (speaking full sentences, no retraction) Gastrointestinal/Abdominal: Normal Exam, Soft, No Tenderness, No Distention, No Guarding, No Rebound, Other (mild bloating) Neurological/Psych: Oriented x3, Normal Speech, Normal Motor, Normal Sensation ED Course And Treatment - Laboratory Results Result Diagrams: 11/04/17 12:55 11/04/17 12:55 O2 Sat by Pulse Oximetry: 100 (RA) Pulse Ox Interpretation: Normal - Radiology CXR: Interpreted by Me CXR Interpretation: Yes: No Acute Disease, Other (IMPROVED COMPARED TO PRIOR) Progress - Re-Evaluation Re-evaluation Note: 11/04/17 15:41 EXAM MILD IMPROVE COMPARED TO INITIAL D/W DR Slick PALOMARES AWARE OF ER FINDINGS WILL ADMIT. CONSULT DR DAMON 11/04/17 15:57 D/W DR GRIER C/F DR DAMON. AWARE OF ER FINDINGS. DOES NOT ADVISE ABX @ THIS TIME. - Data Reviewed Data Reviewed: Lab, Diagnostic imaging, EKG, Old records Medical Decision Making Medical Decision Making: Plan: --Labs --CXR --UA --IV Fluids Disposition Counseled Patient/Family Regarding: Studies Performed, Diagnosis - Disposition Disposition: HOSPITALIZED Disposition Time: 15:43 Condition: STABLE - POA Present On Arrival: Poor Glycemic Control - Clinical Impression Clinical Impression: Colitis, Hyponatremia - Scribe Statement The provider has reviewed the documentation as recorded by the Adelaidaibe Melo Garcia Provider Attestation: All medical record entries made by the Scribe were at my direction and personally dictated by me. I have reviewed the chart and agree that the record accurately reflects my personal performance of the history, physical exam, medical decision making, and the department course for this patient. I have also personally directed, reviewed, and agree with the discharge instructions and disposition. Decision To Admit - Pt Status Changed To: Hospital Disposition Of: Observation - . Bed Request Type: Regular Admitting Physician: Mal Palomares Patient Diagnosis: Colitis, Hyponatremia
[2017-11-04 13:04] LABS: BASO % 0.3 % (0.0-2.0); EOS % 0.1 % (0.0-4.0); HEMOGLOBIN 12.9 g/dL (12.0-18.0); LYMPH # 0.7 K/uL (1.0-4.3); LYMPH % 5.4 % (20.0-40.0); MEAN CELL VOLUME 88.1 fL (80.0-94.0); MEAN CORPUSCULAR HEMOGLOBIN 30.4 pg (27.0-31.0); MEAN CORPUSCULAR HGB CONC 34.5 g/dL (33.0-37.0); MEAN PLATELET VOLUME 6.7 fL (7.2-11.7); MONO % 15.5 % (0.0-10.0); NEUT % 78.7 % (50.0-75.0); PLATELET COUNT 321 K/uL (130-400); RBC 4.25 Mil/uL (4.40-5.90); RED CELL DISTRIBUTION WIDTH 13.9 % (11.5-14.5)
[2017-11-04 13:09] LABS: WHITE BLOOD COUNT 12.7 K/uL (4.8-10.8)
[2017-11-04 13:11] LABS: VENOUS BLOOD GAS PCO2 38 mmHg (40-60); VENOUS BLOOD GAS PO2 17 mm/Hg (30-55); VENOUS BLOOD PH 7.43 (7.32-7.43)
[2017-11-04 13:27] LABS: ALB/GLOB RATIO 0.9 (1.0-2.1); ALBUMIN 3.1 g/dL (3.5-5.0); ALT/SGPT 31 U/L (21-72); AST/SGOT 34 U/L (17-59); BLOOD UREA NITROGEN 19 mg/dL (9-20); CALCIUM 7.9 mg/dl (8.6-10.4); GFR AFRICAN-AMERICAN > 60; GFR NON-AFRICAN AMERICAN > 60; LIPASE 76 U/L (23-300)
[2017-11-04 13:37] LABS: SQUAMOUS EPITHIAL < 1 /hpf (0-5); URINE BACTERIA RARE (<OCC); URINE BILIRUBIN NEGATIVE (NEGATIVE); URINE BLOOD 1+ (NEGATIVE); URINE CLARITY Clear (Clear); URINE COLOR Amber (YELLOW); URINE GLUCOSE (UA) NORMAL (Normal); URINE LEUKOCYTE ESTERASE NEG Leu/uL (Negative); URINE NITRATE NEGATIVE (NEGATIVE); URINE PROTEIN 1+ mg/dL (NEGATIVE); URINE UROBILINOGEN NORMAL mg/dL (0.2-1.0)
[2017-11-04] MEDS: Sodium Chloride 0.9% 1,000 ML IV ONE ×2 (13:38→18:43)
[2017-11-04 13:56] LABS: BANDS 3 % (0-2); EOSINOPHIL 1 % (0-4); LYMPHOCYTE 7 % (20-40); MONOCYTE 13 % (0-10); NEUTROPHIL 76 % (50-75); PLATELET ESTIMATE NORMAL (NORMAL); TOTAL CELLS COUNTED 100
[2017-11-04] MEDS ORDERED: Iodixanol 320 MG/ML 100 ML BOTTLE IV ONE (14:23)
--- NOTE | 2017-11-04 14:39 | RAD ---
HISTORY: abd pain COMPARISON: Chest x-ray performed 08/18/17, CT chest without contrast performed 09/01/17 TECHNIQUE: Chest, one view. FINDINGS: LUNGS: Interval decrease in upper lobe right greater than left confluent airspace disease. Right hilar prominence. Numerous bilateral small nodular pulmonary opacities. Please note that chest x-ray has limited sensitivity for the detection of pulmonary masses. PLEURA: No significant pleural effusion identified. No definite pneumothorax . CARDIOVASCULAR: Heart size appears top normal. OSSEOUS STRUCTURES: Degenerative changes. VISUALIZED UPPER ABDOMEN: Unremarkable. OTHER FINDINGS: None. IMPRESSION: Interval decrease and upper lobe (right greater than left) confluent airspace disease. Numerous bilateral small nodular opacities. Right hilar prominence.
--- NOTE | 2017-11-04 15:12 | CT ---
PROCEDURE: CT Chest, Abdomen and Pelvis with intravenous contrast HISTORY: Diarrhea, abdominal pain. Relevant medical history: Tuberculosis. COMPARISON: 09/01/2017 CT chest TECHNIQUE: IV dose administered: 100 cc Omnipaque 300 Radiation dose: Total exam DLP = 401.92 mGy-cm. This CT exam was performed using one or more of the following dose reduction techniques: Automated exposure control, adjustment of the mA and/or kV according to patient size, and/or use of iterative reconstruction technique. FINDINGS: CT CHEST WITH CONTRAST: LUNGS: Interval decrease in the size of the cavitary mass in the posterior segment of the right upper lobe. Stable findings with respect of left upper lobe scarring, infiltrate and confluent densities. These occur both in the apex and posterior segment of the left upper lobe. MEDIASTINUM: Unremarkable. Normal caliber aorta and pulmonary arterial trunk. No aortic dissection. Normal size heart. LYMPH NODES: Unremarkable. PLEURA: Unremarkable. No pneumothorax. No pleural fluid. BONES: Unremarkable. OTHER FINDINGS: None. CT ABDOMEN AND PELVIS: LIVER: Unremarkable. No gross lesion or ductal dilatation. GALLBLADDER AND BILE DUCTS: Cholelithiasis without CT evidence of acute cholecystitis. Similar findings identified on the prior CT of the thorax 08/22/2017. PANCREAS: Unremarkable. No gross lesion or ductal dilatation. SPLEEN: Unremarkable. ADRENALS: Unremarkable. No mass. KIDNEYS AND URETERS: Unremarkable. No hydronephrosis. No solid mass. Multiple small renal cysts bilaterally. VASCULATURE: Unremarkable. No aortic aneurysm. BOWEL: Dilated small bowel primarily proximal and mid small bowel without a focal narrowing. The overall findings suggest enteritis. Incompletely early small bowel obstruction should also be considered. Garcia colitis with the greatest degree of severity in the ascending colon. Less pronounced changes identified in the left hemicolon including sigmoid and rectum. APPENDIX: Normal appendix. PERITONEUM: Unremarkable. No free fluid. No free air. LYMPH NODES: Unremarkable. No enlarged lymph nodes. BLADDER: Unremarkable. REPRODUCTIVE: Unremarkable. BONES: No acute fracture. OTHER FINDINGS: None. IMPRESSION: 1. Garcia colitis, severe in the ascending colon with less pronounced changes in the left alexander colon, sigmoid and rectum. 2. Dilated proximal small bowel, distal loops are less dilated with no mechanical obstruction. Findings are likely moderate enteritis. 3. Cholelithiasis without CT evidence of acute cholecystitis. 4. Interval improvement in pulmonary findings primarily affecting the right upper lobe. Stable findings/scarring/ granulomatous changes left upper lobe.
[2017-11-04] MEDS: Sodium Chloride 0.9% 1,000 ML IV SCH (22:19)
--- NOTE | 2017-11-05 07:57 | CP.PCM.CON ---
History of Present Illness - History of Present Illness History of Present Illness: ASked to see pt for diarrhea and nausea. PMH: TB, asthma, HTN Pt reports 2-3 weeks of diarrhea- mult, eatery. Nausea and occ vomiting. Mild abdom discomfort- variable. Sl fever and chills. Denies RB, antibiotics, travel. Takes meds for TB. Review of Systems - Constitutional Constitutional: Fatigue, Weight Loss, Weakness - EENT Eyes: absent: Photophobia Nose/Mouth/Throat: absent: Throat Swelling - Cardiovascular Cardiovascular: absent: Chest Pain, Dyspnea - Respiratory Respiratory: absent: Hemoptysis, Wheezing - Gastrointestinal Gastrointestinal: Abdominal Pain, Bloating, Cramping, Diarrhea, Nausea, Vomiting. absent: Constipation, Dysphagia, Heartburn, Hematemesis, Hematochezia , Melena - Genitourinary Genitourinary: absent: Flank Pain - Integumentary Integumentary: absent: Rash, Jaundice - Neurological Neurological: absent: Convulsions Past Patient History - Infectious Disease Hx of Infectious Diseases: None - Past Social History Smoking Status: Never Smoked - CARDIAC Hx Hypertension: Yes - PULMONARY Hx Asthma: Yes - MUSCULOSKELETAL/RHEUMATOLOGICAL Hx Falls: No - PSYCHIATRIC Hx Substance Use: No - SURGICAL HISTORY Hx Surgeries: No - ANESTHESIA Hx Anesthesia: No Meds Allergies/Adverse Reactions: Allergies Allergy/AdvReac Type Severity Reaction Status Date / Time No Known Allergies Allergy Verified 11/05/17 00:32 - Medications Medications: Current Medications Ciprofloxacin (Cipro) 500 mg PO BID [facility] Last Admin: 11/04/17 21:12 Dose: 500 mg Heparin Sodium (Porcine) (Heparin) 5,000 units SC Q8 [facility] Last Admin: 11/05/17 06:01 Dose: 5,000 units Sodium Chloride (Sodium Chloride 0.9%) 1,000 mls @ 100 mls/hr IV .Q10H [facility] Last Admin: 11/04/17 22:19 Dose: Not Given Isoniazid (Niazid) 300 mg PO DAILY [facility] Losartan Potassium (Cozaar) 50 mg PO DAILY [facility] Pantoprazole Sodium (Protonix Ec Tab) 40 mg PO DAILY [facility] Pyridoxine HCl (Vitamin B6 50 Mg Tab) 50 mg PO DAILY [facility] Rifampin (Rifampin Cap) 600 mg PO DAILY [facility] Physical Exam - Constitutional Appears: Non-toxic - Neck Exam Neck exam: Negative for: Tenderness - Respiratory Exam Respiratory Exam: Clear to Auscultation Bilateral - Cardiovascular Exam Cardiovascular Exam: RRR - GI/Abdominal Exam GI & Abdominal Exam: Normal Bowel Sounds, Tenderness. absent: Guarding, Mass, Rebound Additional comments: protuberant. - Extremities Exam Extremities exam: Negative for: calf tenderness - Neurological Exam Neurological exam: Alert, Oriented x3 - Psychiatric Exam Psychiatric exam: Anxious, Normal Affect Results - Vital Signs Recent Vital Signs: Last Vital Signs Temp 99.5 F 11/05/17 00:00 Pulse 76 11/05/17 00:00 Resp 20 11/05/17 00:00 BP 100/60 11/05/17 00:00 Pulse Ox 96 11/05/17 00:00 - Labs Result Diagrams: 11/04/17 12:55 11/04/17 12:55 Labs: Laboratory Results - last 24 hr 11/04/17 11/04/17 11/04/17 12:55 12:55 13:05 WBC 12.7 H D RBC 4.25 L Hgb 12.9 Hct 37.4 MCV 88.1 MCH 30.4 MCHC 34.5 RDW 13.9 Plt Count 321 MPV 6.7 L Neut % (Auto) 78.7 H Lymph % (Auto) 5.4 L [place] % (Auto) 15.5 H Eos % (Auto) 0.1 Baso % (Auto) 0.3 Neut # (Auto) 10.0 H Lymph # (Auto) 0.7 L [place] # (Auto) 2.0 H Eos # (Auto) 0.0 Baso # (Auto) 0.0 Neutrophils % (Manual) 76 H Band Neutrophils % 3 H Lymphocytes % (Manual) 7 L Monocytes % (Manual) 13 H Eosinophils % (Manual) 1 Platelet Estimate Normal pO2 17 L VBG pH 7.43 VBG pCO2 38 L VBG HCO3 23.8 VBG Total CO2 26.4 VBG O2 Sat (Calc) 32.5 L VBG Base Excess 1.0 VBG Potassium 4.1 Glucose 119 H Lactate 0.9 Sodium 126 L 130.0 L Potassium 4.1 Chloride 95 L 101.0 Carbon Dioxide 23 Anion Gap 13 BUN 19 Creatinine 1.0 Est GFR ( Amer) > 60 Est GFR (Non-Af Amer) > 60 Random Glucose 118 H Calcium 7.9 L Total Bilirubin 1.2 AST 34 ALT 31 Alkaline Phosphatase 137 H D Total Protein 6.6 Albumin 3.1 L D Globulin 3.6 Albumin/Globulin Ratio 0.9 L Lipase 76 Venous Blood Potassium 4.1 Urine Color Urine Clarity Urine pH Ur Specific [place] Urine Protein Urine Glucose (UA) Urine Ketones Urine Blood Urine Nitrate Urine Bilirubin Urine Urobilinogen Ur Leukocyte Esterase Urine WBC (Auto) Urine RBC (Auto) Ur Squamous Epith Cells Urine Bacteria C. difficile Ag & Toxin 11/04/17 11/04/17 11/04/17 13:23 19:00 Unknown WBC RBC Hgb Hct MCV MCH MCHC RDW Plt Count MPV Neut % (Auto) Lymph % (Auto) [place] % (Auto) Eos % (Auto) Baso % (Auto) Neut # (Auto) Lymph # (Auto) [place] # (Auto) Eos # (Auto) Baso # (Auto) Neutrophils % (Manual) Band Neutrophils % Lymphocytes % (Manual) Monocytes % (Manual) Eosinophils % (Manual) Platelet Estimate pO2 VBG pH VBG pCO2 VBG HCO3 VBG Total CO2 VBG O2 Sat (Calc) VBG Base Excess VBG Potassium Glucose Lactate Sodium Potassium Chloride Carbon Dioxide Anion Gap BUN Creatinine Est GFR ( Amer) Est GFR (Non-Af Amer) Random Glucose Calcium Total Bilirubin AST ALT Alkaline Phosphatase Total Protein Albumin Globulin Albumin/Globulin Ratio Lipase Venous Blood Potassium Urine Color Ja[place] Urine Clarity Clear Urine pH 5.0 Ur Specific [place] 1.025 Urine Protein 1+ H Urine Glucose (UA) Normal Urine Ketones Negative Urine Blood 1+ H Urine Nitrate Negative Urine Bilirubin Negative Urine Urobilinogen Normal Ur Leukocyte Esterase Neg Urine WBC (Auto) 1 Urine RBC (Auto) 3 Ur Squamous Epith Cells < 1 Urine Bacteria Rare C. difficile Ag & Toxin Negative Negative Assessment & Plan (1) Colitis Assessment and Plan: Seen on CT. Pt has diarrhea. c difficile is negative. Consider infectious, colitis. Also enteritis on CT and sm bowel dilatation. No h/o IBD in psat.MEds - noted. Status: Acute (2) Hyponatremia Status: Acute (3) Diarrhea Assessment and Plan: colitis, enteritis., as above. WBC=12. On cipro. Consider change to IV cipro. Consider flagyl. Consider colonoscopy Status: Acute (4) Tuberculosis Assessment and Plan: On meds Status: Acute
[2017-11-05 08:37] LABS: BASO % 0.3 % (0.0-2.0); EOS % 0.1 % (0.0-4.0); HEMOGLOBIN 12.2 g/dL (12.0-18.0); LYMPH # 1.3 K/uL (1.0-4.3); MEAN CELL VOLUME 87.6 fL (80.0-94.0); MEAN CORPUSCULAR HEMOGLOBIN 30.6 pg (27.0-31.0); MONO # 2.1 K/uL (0.0-0.8); MONO % 16.6 % (0.0-10.0); NEUT # 9.4 K/uL (1.8-7.0); RBC 3.97 Mil/uL (4.40-5.90); RED CELL DISTRIBUTION WIDTH 13.8 % (11.5-14.5); WHITE BLOOD COUNT 12.8 K/uL (4.8-10.8)
[2017-11-05 08:47] LABS: ALB/GLOB RATIO 0.9 (1.0-2.1); ALBUMIN 2.8 g/dL (3.5-5.0); ALT/SGPT 42 U/L (21-72); AST/SGOT 49 U/L (17-59); BLOOD UREA NITROGEN 17 mg/dL (9-20); CALCIUM 7.6 mg/dl (8.6-10.4); GFR AFRICAN-AMERICAN > 60; GFR NON-AFRICAN AMERICAN > 60
[2017-11-05] MEDS: Sodium Chloride 0.9% 1,000 ML IV SCH ×2 (15:39→18:02)
--- NOTE | 2017-11-05 19:44 | CP.PCM.HP ---
History of Present Illness - History of Present Illness History of Present Illness: 62 y/o male with PTB, HTN. Patient has diarrhea, watery since 10/16. He was seen in ER c/o diarrhea & was told viral. Patient has persistent watery stool & was advise observation. Present on Admission - Present on Admission Any Indicators Present on Admission: Yes History of DVT/PE: No History of Uncontrolled Diabetes: No Urinary Catheter: No Decubitus Ulcer Present: No Review of Systems - Review of Systems Systems not reviewed;Unavailable: Acuity of Condition - Constitutional Constitutional: absent: Anorexia, Night Sweats, Sleep Apnea - EENT Eyes: absent: Itchy Eyes, Sees Flashes, Loss of Vision Ears: absent: Decreased Hearing Nose/Mouth/Throat: absent: Nasal Congestion, Nasal Discharge, Post Nasal Drip, Sinus Pressure, Bleeding Gums, Dysphagia, Hoarsness, Odynophagia - Cardiovascular Cardiovascular: absent: Chest Pain, Diaphoresis, Dyspnea, Irregular Heart Rhythm , Leg Edema, Palpitations - Respiratory Respiratory: absent: Cough, Hemoptysis, Dyspnea on Exertion, Chest Congestion - Gastrointestinal Gastrointestinal: Diarrhea, Loose Stools. absent: Abdominal Pain, Dyspepsia, Dysphagia, Heartburn, Hematochezia, Nausea, Vomiting - Genitourinary Genitourinary: absent: Difficulty Urinating, Dysuria, Hematuria - Musculoskeletal Musculoskeletal: absent: Abnormal Gait, Limited Range of Motion, Myalgias, Neck Pain - Integumentary Integumentary: absent: Alopecia, Lesions, New Lesions, Rash Past Patient History - Infectious Disease Hx of Infectious Diseases: None - Past Social History Smoking Status: Never Smoked - CARDIAC Hx Hypertension: Yes - PULMONARY Hx Asthma: Yes - MUSCULOSKELETAL/RHEUMATOLOGICAL Hx Falls: No - PSYCHIATRIC Hx Substance Use: No - SURGICAL HISTORY Hx Surgeries: No - ANESTHESIA Hx Anesthesia: No Meds Allergies/Adverse Reactions: Allergies Allergy/AdvReac Type Severity Reaction Status Date / Time No Known Allergies Allergy Verified 11/05/17 00:32 Physical Exam - Constitutional Appears: Well - Eye Exam Eye Exam: Periorbital tenderness - ENT Exam ENT Exam: Mucous Membranes Moist - Neck Exam Neck exam: Positive for: Full Rom. Negative for: Lymphadenopathy, Meningismus, Normal Inspection - Respiratory Exam Respiratory Exam: Decreased Breath Sounds, Wheezes. absent: Rales, Rhonchi - Cardiovascular Exam Cardiovascular Exam: REGULAR RHYTHM, +S1, +S2. absent: Gallop, JVD, Systolic Murmur - GI/Abdominal Exam GI & Abdominal Exam: Soft. absent: Rebound, Tenderness - Extremities Exam Extremities exam: Positive for: calf tenderness, full ROM. Negative for: joint swelling, normal capillary refill Results - Vital Signs Recent Vital Signs: Last Vital Signs Temp 98.4 F 11/05/17 16:32 Pulse 60 11/05/17 16:32 Resp 20 11/05/17 16:32 BP 94/58 L 11/05/17 16:32 Pulse Ox 97 11/05/17 16:32 - Labs Result Diagrams: 11/05/17 08:22 11/05/17 08:22 Labs: Laboratory Results - last 24 hr 11/04/17 11/05/17 11/05/17 19:00 08:22 08:22 WBC 12.8 H RBC 3.97 L Hgb 12.2 Hct 34.8 L MCV 87.6 MCH 30.6 MCHC 35.0 RDW 13.8 Plt Count 318 MPV 7.0 L Neut % (Auto) 73.0 Lymph % (Auto) 10.0 L [place] % (Auto) 16.6 H Eos % (Auto) 0.1 Baso % (Auto) 0.3 Neut # (Auto) 9.4 H Lymph # (Auto) 1.3 [place] # (Auto) 2.1 H Eos # (Auto) 0.0 Baso # (Auto) 0.0 Sodium 129 L Potassium 3.9 Chloride 101 Carbon Dioxide 21 L Anion Gap 11 BUN 17 Creatinine 1.0 Est GFR ( Amer) > 60 Est GFR (Non-Af Amer) > 60 Random Glucose 103 Calcium 7.6 L Total Bilirubin 0.7 AST 49 ALT 42 Alkaline Phosphatase 131 H Total Protein 6.0 L Albumin 2.8 L Globulin 3.2 Albumin/Globulin Ratio 0.9 L C. difficile Ag & Toxin Negative - EKG Data EKG Interpreted by: Myself Rate: Normal Assessment & Plan - Assessment and Plan (Free Text) Assessment: Colitis likely infectious vs Inflammatory On Cipro/ hydration GI note appreciated
[2017-11-05] MEDS: Pantoprazole 40 mg EC Tab PO SCH (21:36)
[2017-11-06] MEDS: Sodium Chloride 0.9% 1,000 ML IV SCH ×3 (03:30→23:59)
[2017-11-06 09:00] LABS: ALB/GLOB RATIO 0.9 (1.0-2.1); ALBUMIN 2.7 g/dL (3.5-5.0); ALT/SGPT 82 U/L (21-72); AST/SGOT 117 U/L (17-59); BLOOD UREA NITROGEN 19 mg/dL (9-20); CALCIUM 7.5 mg/dl (8.6-10.4); GFR AFRICAN-AMERICAN > 60; GFR NON-AFRICAN AMERICAN > 60
[2017-11-06] MEDS: Pantoprazole 40 mg EC Tab PO SCH (10:37)
--- NOTE | 2017-11-06 12:10 | CP.PCM.PN ---
Subjective - Date & Time of Evaluation Date of Evaluation: 11/06/17 Time of Evaluation: 12:08 - Subjective Subjective: Patient has had six watery bowel movments so far today. He denies having abdominal pain, rectal bleeding. Objective - Vital Signs/Intake and Output Vital Signs (last 24 hours): Temp Pulse Resp BP Pulse Ox 98.6 F 65 20 100/64 98 11/06/17 08:08 11/06/17 08:08 11/06/17 08:08 11/06/17 08:08 11/06/17 08:08 Intake and Output: 11/06/17 11/06/17 06:59 18:59 Intake Total 1800 Balance 1800 - Medications Medications: Current Medications Ciprofloxacin (Cipro) 500 mg PO BID [facility] Last Admin: 11/06/17 10:37 Dose: 500 mg Heparin Sodium (Porcine) (Heparin) 5,000 units SC Q8 [facility] Last Admin: 11/06/17 05:45 Dose: 5,000 units Sodium Chloride (Sodium Chloride 0.9%) 1,000 mls @ 100 mls/hr IV .Q10H [facility] Last Admin: 11/06/17 03:30 Dose: 100 mls/hr Isoniazid (Niazid) 300 mg PO DAILY [facility] Last Admin: 11/06/17 10:37 Dose: 300 mg Losartan Potassium (Cozaar) 50 mg PO DAILY [facility] Last Admin: 11/06/17 10:36 Dose: 50 mg Metronidazole (Flagyl) 500 mg PO TID [facility] Last Admin: 11/06/17 10:37 Dose: 500 mg Pantoprazole Sodium (Protonix Ec Tab) 40 mg PO DAILY [facility] Last Admin: 11/06/17 10:37 Dose: 40 mg Pyridoxine HCl (Vitamin B6 50 Mg Tab) 50 mg PO DAILY [facility] Last Admin: 11/06/17 10:36 Dose: 50 mg Rifampin (Rifampin Cap) 600 mg PO DAILY [facility] Last Admin: 11/06/17 10:36 Dose: 600 mg Fluticasone/Salmeterol (Advair Diskus 250/50) 1 puff INH RQ12 [facility] - Labs Labs: 11/05/17 08:22 11/06/17 08:26 - Constitutional Appears: No Acute Distress - Head Exam Head Exam: ATRAUMATIC, NORMOCEPHALIC - Eye Exam Eye Exam: EOMI, PERRL - Neck Exam Neck Exam: absent: Lymphadenopathy, Thyromegaly - Respiratory Exam Respiratory Exam: NORMAL BREATHING PATTERN. absent: Rales, Rhonchi, Wheezes - Cardiovascular Exam Cardiovascular Exam: REGULAR RHYTHM, +S1, +S2. absent: Gallop, Rubs, Murmur - GI/Abdominal Exam GI & Abdominal Exam: Soft, Normal Bowel Sounds. absent: Tenderness, Mass, Organomegaly - Rectal Exam Rectal Exam: Deferred - Extremities Exam Extremities Exam: absent: Calf Tenderness, Pedal Edema Assessment and Plan (1) Diarrhea Assessment & Plan: Diarrhea persists. Stool analysis so far showed negative O+P and negative C difficile toxin SERENA. Will check additional stool studies. Consider colonoscopy. Status: Acute
--- NOTE | 2017-11-06 15:04 | CP.PCM.PN ---
Subjective - Date & Time of Evaluation Date of Evaluation: 11/06/17 Time of Evaluation: 15:02 - Subjective Subjective: S: c/o diarrhea. No fever. Objective - Vital Signs/Intake and Output Vital Signs (last 24 hours): Temp Pulse Resp BP Pulse Ox 98.6 F 65 20 100/64 98 11/06/17 08:08 11/06/17 08:08 11/06/17 08:08 11/06/17 08:08 11/06/17 14:00 Intake and Output: 11/06/17 11/06/17 06:59 18:59 Intake Total 1800 Balance 1800 - Medications Medications: Current Medications Ciprofloxacin (Cipro) 500 mg PO BID [facility] Last Admin: 11/06/17 10:37 Dose: 500 mg Heparin Sodium (Porcine) (Heparin) 5,000 units SC Q8 [facility] Last Admin: 11/06/17 13:31 Dose: 5,000 units Sodium Chloride (Sodium Chloride 0.9%) 1,000 mls @ 100 mls/hr IV .Q10H [facility] Last Admin: 11/06/17 13:29 Dose: 100 mls/hr Isoniazid (Niazid) 300 mg PO DAILY [facility] Last Admin: 11/06/17 10:37 Dose: 300 mg Losartan Potassium (Cozaar) 50 mg PO DAILY [facility] Last Admin: 11/06/17 10:36 Dose: 50 mg Metronidazole (Flagyl) 500 mg PO TID [facility] Last Admin: 11/06/17 13:31 Dose: 500 mg Pantoprazole Sodium (Protonix Ec Tab) 40 mg PO DAILY [facility] Last Admin: 11/06/17 10:37 Dose: 40 mg Pyridoxine HCl (Vitamin B6 50 Mg Tab) 50 mg PO DAILY [facility] Last Admin: 11/06/17 10:36 Dose: 50 mg Rifampin (Rifampin Cap) 600 mg PO DAILY [facility] Last Admin: 11/06/17 10:36 Dose: 600 mg Fluticasone/Salmeterol (Advair Diskus 250/50) 1 puff INH RQ12 [facility] - Labs Labs: 11/05/17 08:22 11/06/17 08:26 - Constitutional Appears: No Acute Distress - Head Exam Head Exam: NORMAL INSPECTION - Eye Exam Eye Exam: Normal appearance - ENT Exam ENT Exam: Normal Exam - Neck Exam Neck Exam: Normal Inspection - Respiratory Exam Respiratory Exam: NORMAL BREATHING PATTERN - Cardiovascular Exam Cardiovascular Exam: REGULAR RHYTHM - GI/Abdominal Exam GI & Abdominal Exam: Soft, Tenderness - Rectal Exam Rectal Exam: Deferred - Extremities Exam Extremities Exam: Normal Inspection Assessment and Plan (1) Colitis Status: Acute (2) Hyponatremia Status: Acute (3) Tuberculosis Status: Chronic - Assessment and Plan (Free Text) Assessment: A/P: Continue medications.
[2017-11-06 17:59] LABS: C DIFF TOXIN A B NEGATIVE (NEGATIVE)
[2017-11-06 21:49] LABS: FECAL LEUKOCYTES NEGATIVE (NEGATIVE)
[2017-11-07] MEDS: Sodium Chloride 0.9% 1,000 ML IV SCH ×2 (10:14→23:15)
[2017-11-07] MEDS: Pantoprazole 40 mg EC Tab PO SCH (10:15)
--- NOTE | 2017-11-07 11:01 | CP.PCM.PN ---
Subjective - Date & Time of Evaluation Date of Evaluation: 11/07/17 Time of Evaluation: 10:59 - Subjective Subjective: S: C/o abdominal pain and diarrhea. C/o anxious about going home and inability of tuberculosis medication. Objective - Vital Signs/Intake and Output Vital Signs (last 24 hours): Temp Pulse Resp BP Pulse Ox 99.2 F 63 20 96/58 L 97 11/07/17 08:30 11/07/17 08:30 11/07/17 08:30 11/07/17 08:30 11/07/17 08:30 Intake and Output: 11/07/17 11/07/17 06:59 18:59 Intake Total 1960 Balance 1960 - Medications Medications: Current Medications Ciprofloxacin (Cipro) 500 mg PO BID [facility] Last Admin: 11/07/17 10:14 Dose: 500 mg Heparin Sodium (Porcine) (Heparin) 5,000 units SC Q8 [facility] Last Admin: 11/07/17 05:45 Dose: 5,000 units Sodium Chloride (Sodium Chloride 0.9%) 1,000 mls @ 100 mls/hr IV .Q10H [facility] Last Admin: 11/07/17 10:14 Dose: 100 mls/hr Isoniazid (Niazid) 300 mg PO DAILY [facility] Last Admin: 11/07/17 10:14 Dose: 300 mg Losartan Potassium (Cozaar) 50 mg PO DAILY [facility] Last Admin: 11/07/17 10:15 Dose: Not Given Metronidazole (Flagyl) 500 mg PO TID [facility] Last Admin: 11/07/17 10:14 Dose: 500 mg Pantoprazole Sodium (Protonix Ec Tab) 40 mg PO DAILY [facility] Last Admin: 11/07/17 10:15 Dose: 40 mg Pyridoxine HCl (Vitamin B6 50 Mg Tab) 50 mg PO DAILY [facility] Last Admin: 11/07/17 10:14 Dose: 50 mg Rifampin (Rifampin Cap) 600 mg PO DAILY [facility] Last Admin: 11/07/17 10:14 Dose: 600 mg Fluticasone/Salmeterol (Advair Diskus 250/50) 1 puff INH RQ12 [facility] - Labs Labs: 11/05/17 08:22 11/06/17 08:26 - Constitutional Appears: No Acute Distress - Head Exam Head Exam: NORMAL INSPECTION - Eye Exam Eye Exam: Normal appearance - ENT Exam ENT Exam: Mucous Membranes Moist - Neck Exam Neck Exam: Normal Inspection - Respiratory Exam Respiratory Exam: NORMAL BREATHING PATTERN - Cardiovascular Exam Cardiovascular Exam: REGULAR RHYTHM - GI/Abdominal Exam GI & Abdominal Exam: Soft - Rectal Exam Rectal Exam: Deferred - Extremities Exam Extremities Exam: Normal Inspection - Neurological Exam Neurological Exam: Alert Assessment and Plan (1) Colitis Status: Acute (2) Hyponatremia Status: Acute (3) Tuberculosis Status: Chronic - Assessment and Plan (Free Text) Assessment: A/P: Continue medications. Check stool cultures. Social service for discharge planning
[2017-11-07] MEDS: Fluticasone-Salmeterol 250-50mcg Diskus INH SCH ×2 (11:04→19:11)
--- NOTE | 2017-11-07 12:07 | CP.PCM.PN ---
Subjective - Date & Time of Evaluation Date of Evaluation: 11/07/17 Time of Evaluation: 12:00 - Subjective Subjective: Patient continues to complain of diarrhea, five times this morning. He denies having nausea, vomiting, abdominal pain. Objective - Vital Signs/Intake and Output Vital Signs (last 24 hours): Temp Pulse Resp BP Pulse Ox 99.2 F 63 20 96/58 L 97 11/07/17 08:30 11/07/17 08:30 11/07/17 08:30 11/07/17 08:30 11/07/17 08:30 Intake and Output: 11/07/17 11/07/17 06:59 18:59 Intake Total 1960 Balance 1960 - Medications Medications: Current Medications Ciprofloxacin (Cipro) 500 mg PO BID [facility] Last Admin: 11/07/17 10:14 Dose: 500 mg Heparin Sodium (Porcine) (Heparin) 5,000 units SC Q8 [facility] Last Admin: 11/07/17 05:45 Dose: 5,000 units Sodium Chloride (Sodium Chloride 0.9%) 1,000 mls @ 100 mls/hr IV .Q10H [facility] Last Admin: 11/07/17 10:14 Dose: 100 mls/hr Isoniazid (Niazid) 300 mg PO DAILY [facility] Last Admin: 11/07/17 10:14 Dose: 300 mg Losartan Potassium (Cozaar) 50 mg PO DAILY [facility] Last Admin: 11/07/17 10:15 Dose: Not Given Metronidazole (Flagyl) 500 mg PO TID [facility] Last Admin: 11/07/17 10:14 Dose: 500 mg Pantoprazole Sodium (Protonix Ec Tab) 40 mg PO DAILY [facility] Last Admin: 11/07/17 10:15 Dose: 40 mg Pyridoxine HCl (Vitamin B6 50 Mg Tab) 50 mg PO DAILY [facility] Last Admin: 11/07/17 10:14 Dose: 50 mg Rifampin (Rifampin Cap) 600 mg PO DAILY [facility] Last Admin: 11/07/17 10:14 Dose: 600 mg Fluticasone/Salmeterol (Advair Diskus 250/50) 1 puff INH RQ12 [facility] Last Admin: 11/07/17 11:04 Dose: 1 puff - Labs Labs: 11/05/17 08:22 11/06/17 08:26 - Constitutional Appears: No Acute Distress - Head Exam Head Exam: ATRAUMATIC, NORMOCEPHALIC - Eye Exam Eye Exam: EOMI, PERRL - Neck Exam Neck Exam: absent: Lymphadenopathy, Thyromegaly - Respiratory Exam Respiratory Exam: NORMAL BREATHING PATTERN. absent: Rales, Rhonchi, Wheezes - Cardiovascular Exam Cardiovascular Exam: REGULAR RHYTHM, +S1, +S2. absent: Gallop, Rubs, Murmur - GI/Abdominal Exam GI & Abdominal Exam: Soft, Normal Bowel Sounds. absent: Tenderness, Mass, Organomegaly - Rectal Exam Rectal Exam: Deferred - Extremities Exam Extremities Exam: absent: Calf Tenderness, Pedal Edema Assessment and Plan (1) Diarrhea Assessment & Plan: Diarrhea persists. The stool analyses are negative: leukocytes, C difficile toxin, O+P, C+S. Giardia antigen is pending. Consider colonoscopy. Status: Acute
[2017-11-07] MEDS ORDERED: Peg-Electrolyte Oral Soln 4L (Golytely) PO ONE (18:00)
[2017-11-08] MEDS ORDERED: Peg-Electrolyte Oral Soln 4L (Golytely) PO ONE (06:00)
[2017-11-08] MEDS: Sodium Chloride 0.9% 1,000 ML IV SCH ×3 (07:51→18:30)
--- NOTE | 2017-11-08 08:50 | CP.PCM.PN ---
Subjective - Date & Time of Evaluation Date of Evaluation: 11/08/17 Time of Evaluation: 08:32 - Subjective Subjective: Pt no complai exc diarrhea and dec appetite No CP, no SOB, no edema, no cough Objective - Vital Signs/Intake and Output Vital Signs (last 24 hours): Temp Pulse Resp BP Pulse Ox 98.2 F 65 20 98/62 L 99 11/08/17 08:16 11/08/17 08:16 11/08/17 08:16 11/08/17 08:16 11/08/17 08:16 Intake and Output: 11/08/17 11/08/17 06:59 18:59 Intake Total 3900 Balance 3900 - Medications Medications: Current Medications Ciprofloxacin (Cipro) 500 mg PO BID [facility] Last Admin: 11/07/17 18:10 Dose: 500 mg Heparin Sodium (Porcine) (Heparin) 5,000 units SC Q8 [facility] Last Admin: 11/08/17 05:45 Dose: 5,000 units Sodium Chloride (Sodium Chloride 0.9%) 1,000 mls @ 100 mls/hr IV .Q10H [facility] Last Admin: 11/08/17 07:51 Dose: Not Given Isoniazid (Niazid) 300 mg PO DAILY [facility] Last Admin: 11/07/17 10:14 Dose: 300 mg Losartan Potassium (Cozaar) 50 mg PO DAILY [facility] Last Admin: 11/07/17 10:15 Dose: Not Given Metronidazole (Flagyl) 500 mg PO TID [facility] Last Admin: 11/07/17 18:10 Dose: 500 mg Pantoprazole Sodium (Protonix Ec Tab) 40 mg PO DAILY [facility] Last Admin: 11/07/17 10:15 Dose: 40 mg Pyridoxine HCl (Vitamin B6 50 Mg Tab) 50 mg PO DAILY [facility] Last Admin: 11/07/17 10:14 Dose: 50 mg Rifampin (Rifampin Cap) 600 mg PO DAILY [facility] Last Admin: 11/07/17 10:14 Dose: 600 mg Fluticasone/Salmeterol (Advair Diskus 250/50) 1 puff INH RQ12 [facility] Last Admin: 11/07/17 19:11 Dose: 1 puff - Labs Labs: 11/05/17 08:22 11/06/17 08:26 - Constitutional Appears: Older Than Stated Age - Eye Exam Eye Exam: Normal appearance - ENT Exam ENT Exam: Mucous Membranes Moist - Neck Exam Neck Exam: Full ROM. absent: Lymphadenopathy, Thyromegaly - Respiratory Exam Respiratory Exam: Decreased Breath Sounds. absent: Rales, Rhonchi, Wheezes - Cardiovascular Exam Cardiovascular Exam: +S1, +S2. absent: Gallop, REGULAR RHYTHM, JVD - GI/Abdominal Exam GI & Abdominal Exam: Soft. absent: Tenderness, Mass - Extremities Exam Extremities Exam: Full ROM, Normal Capillary Refill. absent: Calf Tenderness, Joint Swelling, Pedal Edema Assessment and Plan - Assessment and Plan (Free Text) Assessment: Diarrhea; PTB HTN Conrt meds For colonoscopy
[2017-11-08] MEDS: Fluticasone-Salmeterol 250-50mcg Diskus INH SCH ×2 (09:25→19:18)
[2017-11-08] MEDS: Pantoprazole 40 mg EC Tab PO SCH (10:10)
[2017-11-08] MEDS ORDERED: Lactated Ringer's 1,000 ML IV ONE (14:45)
[2017-11-08] MEDS ORDERED: Propofol 10 mg/ml Inj (20 ML) ONE (14:55)
[2017-11-08 16:16] VITALS: RESP 20
[2017-11-08] MEDS: Vancomycin 125 MG/5 ML SOLN (ORAL/RECTAL) PO SCH ×2 (17:36→21:34)
[2017-11-09] MEDS: Sodium Chloride 0.9% 1,000 ML IV SCH ×3 (02:18→22:07)
[2017-11-09 07:28] LABS: BASO # 0.1 K/uL (0.0-0.2); BASO % 0.6 % (0.0-2.0); EOS # 0.1 K/uL (0.0-0.7); EOS % 1.4 % (0.0-4.0); HEMOGLOBIN 12.4 g/dL (12.0-18.0); LYMPH # 1.3 K/uL (1.0-4.3); LYMPH % 15.2 % (20.0-40.0); MEAN CELL VOLUME 87.9 fL (80.0-94.0); MEAN CORPUSCULAR HEMOGLOBIN 30.1 pg (27.0-31.0); MEAN CORPUSCULAR HGB CONC 34.2 g/dL (33.0-37.0); MONO % 11.8 % (0.0-10.0); NEUT # 6.1 K/uL (1.8-7.0); RBC 4.11 Mil/uL (4.40-5.90); RED CELL DISTRIBUTION WIDTH 13.4 % (11.5-14.5); WHITE BLOOD COUNT 8.7 K/uL (4.8-10.8)
[2017-11-09 07:39] LABS: ALB/GLOB RATIO 0.8 (1.0-2.1); ALBUMIN 2.4 g/dL (3.5-5.0); ALT/SGPT 157 U/L (21-72); AST/SGOT 71 U/L (17-59); BLOOD UREA NITROGEN 8 mg/dL (9-20); CALCIUM 7.3 mg/dl (8.6-10.4); GFR AFRICAN-AMERICAN > 60; GFR NON-AFRICAN AMERICAN > 60
--- NOTE | 2017-11-09 08:29 | CP.PCM.PN ---
Subjective - Date & Time of Evaluation Date of Evaluation: 11/09/17 Time of Evaluation: 08:26 - Subjective Subjective: F/u diarrhea Pt reports feeling much better. Less diarrhea No abdom pain Denies RB, fever, chills, CP, SOB, BARONE , cough He wants solid food Objective - Vital Signs/Intake and Output Vital Signs (last 24 hours): Temp Pulse Resp BP Pulse Ox 98.6 F 70 20 109/66 98 11/09/17 08:00 11/09/17 08:00 11/09/17 08:00 11/09/17 08:00 11/09/17 08:00 Intake and Output: 11/09/17 11/09/17 06:59 18:59 Intake Total 800 1040 Balance 800 1040 - Medications Medications: Current Medications Ciprofloxacin (Cipro) 500 mg PO BID [facility] Last Admin: 11/08/17 17:34 Dose: 500 mg Heparin Sodium (Porcine) (Heparin) 5,000 units SC Q8 [facility] Last Admin: 11/09/17 05:07 Dose: 5,000 units Sodium Chloride (Sodium Chloride 0.9%) 1,000 mls @ 100 mls/hr IV .Q10H [facility] Last Admin: 11/09/17 02:18 Dose: 100 mls/hr Isoniazid (Niazid) 300 mg PO DAILY [facility] Last Admin: 11/08/17 10:09 Dose: Not Given Losartan Potassium (Cozaar) 50 mg PO DAILY [facility] Last Admin: 11/08/17 10:07 Dose: Not Given Metronidazole (Flagyl) 500 mg PO TID [facility] Last Admin: 11/08/17 17:35 Dose: 500 mg Pantoprazole Sodium (Protonix Ec Tab) 40 mg PO DAILY [facility] Last Admin: 11/08/17 10:10 Dose: Not Given Pyridoxine HCl (Vitamin B6 50 Mg Tab) 50 mg PO DAILY [facility] Last Admin: 11/08/17 10:10 Dose: Not Given Rifampin (Rifampin Cap) 600 mg PO DAILY [facility] Last Admin: 11/08/17 10:10 Dose: Not Given Fluticasone/Salmeterol (Advair Diskus 250/50) 1 puff INH RQ12 [facility] Last Admin: 11/08/17 19:18 Dose: 1 puff Vancomycin HCl (Vancocin (Oral Or Rectal Use)) 125 mg PO QID [facility] Last Admin: 11/08/17 21:34 Dose: 125 mg - Labs Labs: 11/09/17 07:06 11/09/17 07:06 - Constitutional Appears: Well - Neck Exam Neck Exam: absent: Tenderness - Respiratory Exam Respiratory Exam: Clear to Ausculation Bilateral - Cardiovascular Exam Cardiovascular Exam: RRR - GI/Abdominal Exam GI & Abdominal Exam: Soft, Normal Bowel Sounds. absent: Guarding, Rigid, Tenderness, Mass, Rebound - Neurological Exam Neurological Exam: Alert, Oriented x3 Assessment and Plan (1) Colitis Assessment & Plan: likely due to pseudomembranous colitis Status: Acute (2) Hyponatremia Status: Acute (3) Diarrhea Assessment & Plan: due tp pseudom colitis- seen on colonsocopy. Even though stool c difficile is negative. Rec: Oral vanco stop cipro change protonix to pepcid Status: Acute (4) Tuberculosis Status: Chronic (5) Abnormal LFTs Assessment & Plan: consider meds. Rec- stop cipro check labs, hep profile. Status: Acute
--- NOTE | 2017-11-09 09:08 | CP.PCM.PN ---
Subjective - Date & Time of Evaluation Date of Evaluation: 11/09/17 Time of Evaluation: 08:35 - Subjective Subjective: Pt feels hungry. No CP, no SOB, no edema, no cough Objective - Vital Signs/Intake and Output Vital Signs (last 24 hours): Temp Pulse Resp BP Pulse Ox 98.6 F 70 20 109/66 98 11/09/17 08:00 11/09/17 08:00 11/09/17 08:00 11/09/17 08:00 11/09/17 08:00 Intake and Output: 11/09/17 11/09/17 06:59 18:59 Intake Total 800 1040 Balance 800 1040 - Medications Medications: Current Medications Heparin Sodium (Porcine) (Heparin) 5,000 units SC Q8 [facility] Last Admin: 11/09/17 05:07 Dose: 5,000 units Sodium Chloride (Sodium Chloride 0.9%) 1,000 mls @ 100 mls/hr IV .Q10H [facility] Last Admin: 11/09/17 02:18 Dose: 100 mls/hr Isoniazid (Niazid) 300 mg PO DAILY [facility] Last Admin: 11/08/17 10:09 Dose: Not Given Losartan Potassium (Cozaar) 50 mg PO DAILY [facility] Last Admin: 11/08/17 10:07 Dose: Not Given Metronidazole (Flagyl) 500 mg PO TID [facility] Last Admin: 11/08/17 17:35 Dose: 500 mg Pyridoxine HCl (Vitamin B6 50 Mg Tab) 50 mg PO DAILY [facility] Last Admin: 11/08/17 10:10 Dose: Not Given Rifampin (Rifampin Cap) 600 mg PO DAILY [facility] Last Admin: 11/08/17 10:10 Dose: Not Given Fluticasone/Salmeterol (Advair Diskus 250/50) 1 puff INH RQ12 [facility] Last Admin: 11/08/17 19:18 Dose: 1 puff Vancomycin HCl (Vancocin (Oral Or Rectal Use)) 125 mg PO QID [facility] Last Admin: 11/08/17 21:34 Dose: 125 mg - Labs Labs: 11/09/17 07:06 11/09/17 07:06 - Constitutional Appears: No Acute Distress - Eye Exam Eye Exam: Normal appearance - ENT Exam ENT Exam: Mucous Membranes Moist - Neck Exam Neck Exam: Full ROM. absent: Lymphadenopathy, Tenderness - Respiratory Exam Respiratory Exam: absent: Decreased Breath Sounds, Rales, Rhonchi, Wheezes - Cardiovascular Exam Cardiovascular Exam: REGULAR RHYTHM, +S1, +S2. absent: Gallop, JVD - GI/Abdominal Exam GI & Abdominal Exam: Soft. absent: Tenderness, Mass - Extremities Exam Extremities Exam: Calf Tenderness, Full ROM, Normal Capillary Refill. 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 Stop Cipro and PPI Inc diet need to contact TB clinic c/o develop C diff on RI regimen
[2017-11-09] MEDS: Vancomycin 125 MG/5 ML SOLN (ORAL/RECTAL) PO SCH ×4 (10:40→22:06)
[2017-11-10 07:12] LABS: HEMOGLOBIN 12.7 g/dL (12.0-18.0); MEAN CELL VOLUME 88.5 fL (80.0-94.0); MEAN CORPUSCULAR HEMOGLOBIN 31.1 pg (27.0-31.0); MEAN CORPUSCULAR HGB CONC 35.1 g/dL (33.0-37.0); MEAN PLATELET VOLUME 6.9 fL (7.2-11.7); RBC 4.09 Mil/uL (4.40-5.90); RED CELL DISTRIBUTION WIDTH 13.9 % (11.5-14.5); WHITE BLOOD COUNT 8.2 K/uL (4.8-10.8)
[2017-11-10 08:14] LABS: ALB/GLOB RATIO 0.9 (1.0-2.1); ALBUMIN 2.7 g/dL (3.5-5.0); ALT/SGPT 137 U/L (21-72); AST/SGOT 43 U/L (17-59); BLOOD UREA NITROGEN 7 mg/dL (9-20); CALCIUM 7.9 mg/dl (8.6-10.4); GFR AFRICAN-AMERICAN > 60; GFR NON-AFRICAN AMERICAN > 60
[2017-11-10] MEDS: Fluticasone-Salmeterol 250-50mcg Diskus INH SCH (08:15)
[2017-11-10] MEDS: Sodium Chloride 0.9% 1,000 ML IV SCH ×2 (08:52→17:53)
[2017-11-10 08:54] LABS: HEPATITIS B SURFACE AG Negative (NEGATIVE)
[2017-11-10 09:00] LABS: HEPATITIS A IGM NEGATIVE (NEGATIVE); HEPATITIS B CORE AB NEGATIVE (NEGATIVE)
--- NOTE | 2017-11-10 09:05 | CP.PCM.PN ---
Subjective - Date & Time of Evaluation Date of Evaluation: 11/10/17 Time of Evaluation: 08:35 - Subjective Subjective: Pt feels well. No CP, no SOB, no edema, no cough, (+) bladimir dec diarrhea 2X since last night Objective - Vital Signs/Intake and Output Vital Signs (last 24 hours): Temp Pulse Resp BP Pulse Ox 98.2 F 77 20 91/60 L 96 11/10/17 08:12 11/10/17 08:12 11/10/17 08:12 11/10/17 08:12 11/10/17 08:12 Intake and Output: 11/10/17 11/10/17 06:59 18:59 Intake Total 1520 800 Balance 1520 800 - Medications Medications: Current Medications Heparin Sodium (Porcine) (Heparin) 5,000 units SC Q8 [facility] Last Admin: 11/10/17 05:13 Dose: 5,000 units Sodium Chloride (Sodium Chloride 0.9%) 1,000 mls @ 100 mls/hr IV .Q10H [facility] Last Admin: 11/10/17 08:52 Dose: Not Given Isoniazid (Niazid) 300 mg PO DAILY [facility] Last Admin: 11/09/17 10:40 Dose: 300 mg Losartan Potassium (Cozaar) 50 mg PO DAILY [facility] Last Admin: 11/09/17 10:41 Dose: 50 mg Metronidazole (Flagyl) 500 mg PO TID [facility] Last Admin: 11/09/17 18:16 Dose: 500 mg Pyridoxine HCl (Vitamin B6 50 Mg Tab) 50 mg PO DAILY [facility] Last Admin: 11/09/17 10:40 Dose: 50 mg Rifampin (Rifampin Cap) 600 mg PO DAILY [facility] Last Admin: 11/09/17 10:40 Dose: 600 mg Fluticasone/Salmeterol (Advair Diskus 250/50) 1 puff INH RQ12 [facility] Last Admin: 11/10/17 08:15 Dose: 1 puff Vancomycin HCl (Vancocin (Oral Or Rectal Use)) 125 mg PO QID [facility] Last Admin: 11/09/17 22:06 Dose: 125 mg - Labs Labs: 11/10/17 06:49 11/10/17 06:49 - Constitutional Appears: No Acute Distress - Eye Exam Eye Exam: Normal appearance - ENT Exam ENT Exam: Mucous Membranes Moist - Neck Exam Neck Exam: Full ROM. absent: Lymphadenopathy, Normal Inspection - Respiratory Exam Respiratory Exam: Decreased Breath Sounds. absent: Rales, Rhonchi, Wheezes - Cardiovascular Exam Cardiovascular Exam: +S1, +S2, Murmur. absent: Gallop, REGULAR RHYTHM, JVD - GI/Abdominal Exam GI & Abdominal Exam: Soft. absent: Tenderness, Mass - Extremities Exam Extremities Exam: Full ROM. absent: Calf Tenderness, Joint Swelling, Normal Capillary Refill, Pedal Edema Assessment and Plan - Assessment and Plan (Free Text) Assessment: C diff colitis; PTB HTN, COPD cont meds discharge on Vanco??
[2017-11-10 09:12] LABS: HEPATITIS C ANTIBODY NEGATIVE (NEGATIVE)
[2017-11-10] MEDS: Vancomycin 125 MG/5 ML SOLN (ORAL/RECTAL) PO SCH ×4 (09:55→21:35)
--- NOTE | 2017-11-10 11:27 | CP.PCM.PN ---
Subjective - Date & Time of Evaluation Date of Evaluation: 11/10/17 Time of Evaluation: 11:10 - Subjective Subjective: Less diarrhea since on Vancomycin LFTs slightly improved-likely elevation from INH Objective - Vital Signs/Intake and Output Vital Signs (last 24 hours): Temp Pulse Resp BP Pulse Ox 98.2 F 77 20 91/60 L 96 11/10/17 08:12 11/10/17 08:12 11/10/17 08:12 11/10/17 08:12 11/10/17 08:12 Intake and Output: 11/10/17 11/10/17 06:59 18:59 Intake Total 1520 800 Balance 1520 800 - Medications Medications: Current Medications Heparin Sodium (Porcine) (Heparin) 5,000 units SC Q8 [facility] Last Admin: 11/10/17 05:13 Dose: 5,000 units Sodium Chloride (Sodium Chloride 0.9%) 1,000 mls @ 100 mls/hr IV .Q10H [facility] Last Admin: 11/10/17 08:52 Dose: Not Given Isoniazid (Niazid) 300 mg PO DAILY [facility] Last Admin: 11/10/17 09:55 Dose: 300 mg Losartan Potassium (Cozaar) 50 mg PO DAILY [facility] Last Admin: 11/10/17 09:14 Dose: Not Given Metronidazole (Flagyl) 500 mg PO TID [facility] Last Admin: 11/10/17 09:55 Dose: 500 mg Pyridoxine HCl (Vitamin B6 50 Mg Tab) 50 mg PO DAILY [facility] Last Admin: 11/10/17 09:55 Dose: 50 mg Rifampin (Rifampin Cap) 600 mg PO DAILY [facility] Last Admin: 11/10/17 09:55 Dose: 600 mg Fluticasone/Salmeterol (Advair Diskus 250/50) 1 puff INH RQ12 [facility] Last Admin: 11/10/17 08:15 Dose: 1 puff Vancomycin HCl (Vancocin (Oral Or Rectal Use)) 125 mg PO QID [facility] Last Admin: 11/10/17 09:55 Dose: 125 mg - Labs Labs: 11/10/17 06:49 11/10/17 06:49 - Constitutional Appears: Well, No Acute Distress - Respiratory Exam Respiratory Exam: Clear to Ausculation Bilateral - Cardiovascular Exam Cardiovascular Exam: REGULAR RHYTHM - GI/Abdominal Exam GI & Abdominal Exam: Soft. absent: Tenderness, Organomegaly Assessment and Plan (1) Abnormal LFTs Assessment & Plan: Drug induced from INH Monitor LFTs. If rising would recommend ID consult Status: Acute (2) Colitis Assessment & Plan: Pseudomembraneous colitis macroscopically Diarrhea improving with oral Vancomycin Monitor clinical response Check pathology when available Status: Acute (3) Tuberculosis Assessment & Plan: Management per Dr Dyer Status: Acute
[2017-11-11] MEDS: Sodium Chloride 0.9% 1,000 ML IV SCH (04:00)
--- NOTE | 2017-11-11 08:16 | CP.PCM.PN ---
Subjective - Date & Time of Evaluation Date of Evaluation: 11/11/17 Time of Evaluation: 08:13 - Subjective Subjective: F/U diarrhea Reports feels better. Less diarrhea. 2 soft BMs per day. Denies Rb, melena, fever, chills, SZ, cough, hematuria Objective - Vital Signs/Intake and Output Vital Signs (last 24 hours): Temp Pulse Resp BP Pulse Ox 98.8 F 65 20 102/63 95 11/11/17 00:00 11/11/17 00:00 11/11/17 00:00 11/11/17 00:00 11/11/17 00:00 Intake and Output: 11/11/17 11/11/17 06:59 18:59 Intake Total 2600 Balance 2600 - Medications Medications: Current Medications Heparin Sodium (Porcine) (Heparin) 5,000 units SC Q8 [facility] Last Admin: 11/11/17 05:30 Dose: 5,000 units Sodium Chloride (Sodium Chloride 0.9%) 1,000 mls @ 100 mls/hr IV .Q10H [facility] Last Admin: 11/11/17 04:00 Dose: 100 mls/hr Isoniazid (Niazid) 300 mg PO DAILY [facility] Last Admin: 11/10/17 09:55 Dose: 300 mg Losartan Potassium (Cozaar) 50 mg PO DAILY [facility] Last Admin: 11/10/17 09:14 Dose: Not Given Metronidazole (Flagyl) 500 mg PO TID [facility] Last Admin: 11/10/17 17:51 Dose: 500 mg Pyridoxine HCl (Vitamin B6 50 Mg Tab) 50 mg PO DAILY [facility] Last Admin: 11/10/17 09:55 Dose: 50 mg Rifampin (Rifampin Cap) 600 mg PO DAILY [facility] Last Admin: 11/10/17 09:55 Dose: 600 mg Fluticasone/Salmeterol (Advair Diskus 250/50) 1 puff INH RQ12 [facility] Last Admin: 11/10/17 08:15 Dose: 1 puff Vancomycin HCl (Vancocin (Oral Or Rectal Use)) 125 mg PO QID [facility] Last Admin: 11/10/17 21:35 Dose: 125 mg - Labs Labs: 11/10/17 06:49 11/10/17 06:49 - Constitutional Appears: Well - Neck Exam Neck Exam: absent: Tenderness - Respiratory Exam Respiratory Exam: Clear to Ausculation Bilateral - Cardiovascular Exam Cardiovascular Exam: RRR - GI/Abdominal Exam GI & Abdominal Exam: Soft, Normal Bowel Sounds. absent: Guarding, Rigid, Tenderness, Mass, Rebound - Neurological Exam Neurological Exam: Alert, Oriented x3 Assessment and Plan (1) Colitis Assessment & Plan: pseudomembr. Check biopsies COntinue p.o. treatment for 2 weeks Status: Acute (2) Hyponatremia Status: Acute (3) Diarrhea Status: Acute (4) Tuberculosis Status: Chronic (5) Abnormal LFTs Assessment & Plan: ABout same. COnsdier meds. Cipro stopped. On INH. Status: Acute
[2017-11-11 08:30] VITALS: BP 110/66; PULSE 73; TEMP 98.4; O2SAT 96
[2017-11-11] MEDS: Vancomycin 125 MG/5 ML SOLN (ORAL/RECTAL) PO SCH (09:06)
--- NOTE | 2017-11-11 18:18 | CP.PCM.PN ---
Subjective - Date & Time of Evaluation Date of Evaluation: 11/11/17 Time of Evaluation: 09:00 - Subjective Subjective: Alert, awake, no sob or chest pains. Objective - Vital Signs/Intake and Output Vital Signs (last 24 hours): Temp Pulse Resp BP Pulse Ox 98.4 F 73 20 110/66 96 11/11/17 08:25 11/11/17 08:25 11/11/17 08:25 11/11/17 08:25 11/11/17 08:25 Intake and Output: 11/11/17 11/11/17 06:59 18:59 Intake Total 2600 Balance 2600 - Labs Labs: 11/10/17 06:49 11/10/17 06:49 Assessment and Plan - Assessment and Plan (Free Text) Assessment: Patient is seen and examined. Alert and orientedx3, denies abdominal pain, no diarrhea for [address] Dyer, plan to discharge home on oral vancomycin to complete 14 days. Advised to follow up with PMD IN 1 WEEK.
== END 2017-11-11 11:15 | disposition home or self-care (01) | DRG 372 ==
LOC: C.ER 11:13 → C.9E 15:44 → C.3T 15:44 → OBSVTOIN 11-06 13:45 → C.3T 11-09 10:10
PROVIDERS: ADMIT Internal Medicine; ATTEND Internal Medicine
PROC: 0DBL8ZX Excision of Transverse Colon, Via Natural or Artificial Opening Endoscopic, Diagnostic (ICD-10-PCS; 2017-11-08)
PROC: 0DBP8ZX Excision of Rectum, Via Natural or Artificial Opening Endoscopic, Diagnostic (ICD-10-PCS; 2017-11-08)
PROC: 0DBM8ZX Excision of Descending Colon, Via Natural or Artificial Opening Endoscopic, Diagnostic (ICD-10-PCS; 2017-11-08)
PROC: 0DBH8ZX Excision of Cecum, Via Natural or Artificial Opening Endoscopic, Diagnostic (ICD-10-PCS; 2017-11-08)
PROC: 0DBK8ZX Excision of Ascending Colon, Via Natural or Artificial Opening Endoscopic, Diagnostic (ICD-10-PCS; principal; 2017-11-08 14:59)
DX: A04.72 Enterocolitis due to Clostridium difficile, not specified as recurrent (principal); E87.1 Hypo-osmolality and hyponatremia; I10 Essential (primary) hypertension; J44.9 Chronic obstructive pulmonary disease, unspecified